=== PATIENT | female | born 1975 | race Caucasian/White ===

== ENCOUNTER 2017-03-25 09:00 | Outpatient (RCR) | payer OTHER, SELFPAY ==
--- NOTE | 2017-03-11 10:06 | HP.PTEVAL_ITS ---
Patient's Visit Information JOSE ALBERTO CHEN is a 41 year old F referred to Physical Therapy by Aris Salas DO with a diagnosis of Right Hip Resection with labral reattatchment 02/17. Date of Evaluation: 03/11/17 Physical Therapist: Kellie Camejo - Visit Plan Frequency: 1x/Week Duration: 3 Months Plan: Follow protocol - Subjective Subjective: Feb 17, 2017 repaired the labrum of the right hip by Dr. Salas. Was doing crossfit and thinks it was torn from overlifting- gradual onset. Does have deformed' hip sockets. Outpatient surgery with 1 story home with finished basement- does go up/down the stairs. No problems getting around at home- has help as needed. 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 Does have mild ache in the hip but no need for pain medication. She is taking them 1x a day. Worst: 1/10 Agg: sitting to long or walking to long. Best: 0/10 but always feels stiff Describes pain as dull and achy- pain is in the hip- does pull on the lateral aspect of the quad to the knee. No back pain- Does have N/T in the top of the foot and was warned about it before surgery. Patient feels that she is 80% back- wants to get back to working out. Wants to be able to lift again- does not plan to go back to Crossfit- does have a gym membership. Does want to be able to run again. PMHx: acid reflux, exercise induced asthma. Meds: prilosec, rescue inhaler as needed. No x-rays since leaving the hospital. Saw Dr. Salas who was happy with progress- wanted her to start PT and see her in 4 weeks. Sleep: not disturbed. - Objective Posture: good throughout. Gait: no deviation noted. Stairs: able to asc/desc recip with no HR good control. SLS: 30 sec without LOB. HR/TR: able without incidence. ROM: WFL in all planes- mild discomfort at end range abduction. Strength: Ankle/Knee: 5/5, Hip: 4/5 throughout Core: fair - Goals Goal 1:: Patient will be I with HEP and progression Goal Time Frame: 4-6 Weeks Goal 2:: Patient will demo 5/5 strength in LE where deficit Goal Time Frame: 4-6 Weeks Goal 3:: Patient will return to all normal ADL's and recreational activities Goal Time Frame: 4-6 Weeks - Rehabilitation Potential Physical Therapy Diagnosis: Patient presents with hypomobility- she has decreased strength and muscular endurance s/p hip surgery Rehabilitation Potential: Excellent - Anticipated Interventions Patient/Client Instruction: Educate patient on: Benefits of Fitness Program For the Purpose of:: To increase tolerance to activity/condition/position Therapeutic Exercise to Include: Strength training, Endurance training, Balance training, Body mechanics, Postural training, Flexibilty training, Dynamic Lumbar Stabilization For the Purpose of:: To improve muscle performance and motor function Thank you for the opportunity to evaluate your patient. For Medicare and Medicare HMO plans, please review the plan of care and approve it. It will need to be FAXED BACK to us at [phone] for Medicare purposes. Please let me know if there are questions or concerns regarding this plan of care. Physician Signature: Date:
--- NOTE | 2017-06-15 14:30 | HP.PTDCNRP_ITS ---
HP - Discharge Summary (1) - Patient Information JOSE ALBERTO CHEN was seen in my office for initial evaluation on 03/11/17. The following Plan of Care was established for this patient: Initial Frequency: 1x/Week Initial Duration: 3 Months - Anticipated Interventions Patient/Client Instruction: Educate patient on: Benefits of Fitness Program For the Purpose of:: To increase tolerance to activity/condition/position Therapeutic Exercise to Include: Strength training, Endurance training, Balance training, Body mechanics, Postural training, Flexibilty training, Dynamic Lumbar Stabilization For the Purpose of:: To improve muscle performance and motor function This patient was last seen in our office . Pertinent comments regarding their Physical therapy will appear below: Patient has not attended physical therapy in over 4 weeks- appropriate to be d/ c at this time. At this point I will be discontinuing this patient from physical therapy. I would be happy to see this patient again in the future if found appropriate by the physician. Thank you! Kellie Camejo
== END 2017-03-25 19:00 | disposition home or self-care (01) ==
LOC: PT 09:00
PROVIDERS: Family Provider Preventive Medicine Occupational Medicine; PCP Preventive Medicine Occupational Medicine; Visit Provider Orthopaedic Surgery
DX: Z98.890 Other specified postprocedural states (principal)
CPT/HCPCS: 97110; 97161

== ENCOUNTER 2019-03-15 11:40 | Emergency (ER) | payer OTHER, SELFPAY ==
[2018-11-19 17:35] VITALS: BMI 38.0
[2019-03-15 11:40] VITALS: BP 163/104; PULSE 76; RESP 18; TEMP 36.6; O2SAT 99; BMI 42.5
--- NOTE | 2019-03-15 12:26 | ED.DCSUM_ITS ---
- ER Visit Summary Date of Service: 03/15/19 Chief Complaint: Headache History of Present Illness: The patient is a 43 F presenting with headache. Patient states this started 5 days ago. Headache was gradual in onset. Similar to her previous migraines. She has associated nausea and vomiting. She has tr ied her migraine medications at home. She states this intermittently helps and then the headache will return. She denies fever or neck pain. Denies other complaints. Physical Examination: Vitals are stable. Patient is afebrile. Alert no acute distress. HEENT exam is unremarkable. Neck is supple. No meningismus Lungs are clear and equal bilaterally. Heart is regular rate and rhythm. Abdomen is soft nontender nondistended. Extremities are unremarkable. Skin is warm and dry. No focal neurologic deficit. Remainder of exam is unremarkable. Emergency Department Course and Treatment: Patient was given Reglan, Benadryl IV. On reevaluation, patient is feeling improved. She is given prescription for Zofran. Advised to follow-up with her primary care physician. Advised return the ED for worsening complaints. Disposition: Discharge home Impression: Migraine headache This note was generated with Airware dictation software. It may contain incorrect words, spelling, and punctuation that were not noted in review of the chart prior to signing ED Disposition - Plan for ED Patient: Instructions: HEADACHE, Unspecified Prescriptions: Ondansetron [Zofran Odt] 4 mg PO Q8H PRN PRN #10 tab PRN Reason: Nausea Prescription Printed Referrals: Mike Payton DO [Primary Care Provider] -
[2019-03-15] MEDS: DiphenhydrAMINE 50 MG/ML Syringe 25 MG IV (13:25)
[2019-03-15] MEDS: Metoclopramide 10 MG/2 ML Vial IV (13:25)
--- NOTE | 2019-03-15 13:58 | ED.DEP ---
ED Disposition - Plan for ED Patient: Instructions: HEADACHE, Unspecified Prescriptions: Ondansetron [Zofran Odt] 4 mg PO Q8H PRN PRN #10 tablet PRN Reason: Nausea Referrals: Mike Payton DO [Primary Care Provider] -
[2019-03-15 14:25] VITALS: PULSE 70; RESP 16; O2SAT 98
== END 2019-03-15 14:26 | disposition home or self-care (01) ==
LOC: ED 12:35
PROVIDERS: Emergency Provider Emergency Medicine; Family Provider Preventive Medicine Occupational Medicine; PCP Preventive Medicine Occupational Medicine
DX: G43.909 Migraine, unspecified, not intractable, without status migrainosus (principal); Z79.899 Other long term (current) drug therapy
CPT/HCPCS: 96374; 96375; 99285; A4216

== ENCOUNTER 2020-09-06 09:26 | Outpatient (RCR) | payer BC, SELFPAY ==
[2020-08-10 13:11] VITALS: BMI 42.5
--- NOTE | 2020-09-06 11:26 | HP.PTEVAL ---
Patient's Visit Information JOSE ALBERTO CHEN is a 44 year old F referred to Physical Therapy by PIPPA Spencer with a diagnosis of LOW BACK PAIN, LUMBAR RADICULITIS AND RIGHT HIP PAIN.. Date of Evaluation: 09/06/20 Physical Therapist: Felipa Noyola, PT, Cert MDT - Visit Plan Frequency: 2-3x /Week Duration: 4-6 Weeks Plan: SETH TESTING AND HIP FLEXION ROM TESTING. CONSIDER AQUATIC THERAPY. POSTURE CORRECTION/STRENGTHENING, INSTRUCTION IN APPROPRIATE BODY MECHANICS AND ACTIVITY MODIFICATIONS. DLS STARTING WITH A NEUTRAL SPINE PROGRESSING ROM TOLERATED. NOE LE ROM, STRETCHING AND STRENGTHENING. HEP INSTRUCTION. 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 Disability: NO. Present symptoms: RIGHT LEG PAIN (LATERAL), LOW BACK PAIN AND RIGHT HIP PAIN. RIGHT THIGH NUMBNESS AND TINGLING. PAIN WRAPS AROUND THE FRONT OF THE HIP TOO BUT NOT REALLY TO THE GROIN. Present since: ABOUT 2 YEARS AGO. Pain Scale: WORST 7/10, LEAST 2/10. Currently: 2/10. Commenced as a result of: NO APPARENT REASON. Symptoms at onset: RIGHT HIP PAIN. Worse: STANDING, WALKING, LIFTING, BENDING, TWISTING, STEPS. Better: SITTING, LYING DOWN SOMTIMES EVENTUALLY. Disturbed sleep: YES. Previous history/Previous treatment: PATIENT REPORT SHE TORE HER RIGHT HIP LABRUM ABOUT 4 YEARS AGO AND HAD IT REPAIRED (DR. TRAN) BUT NEVER FELT FULLY RECOVERED. STILL HAD PINCHING IN HIP AND KEPT GETTING WORSE. NUMBNESS STARTED AT TOP OF THIGH AND NOW IT IS DOWN TO THE TOP OF KNEE. NO CHIROPRACTOR. NO PHYSICAL THERAPY. NO BACK SURGERY. NO BACK INJECTIONS. PCP CONSULT WITH DR. JESUS ALBERTO LIN A FEW TIMES AND HAS BEEN ON GABAPENTIN FOR ABOUT A YEAR. ONE CONSULT WITH CAROLINE DAS AND ORDERED X-RAYS OF HIP AND BACK. STATES PA CONSULTED WITH DR. YUAN FOR BACK MRI AND PT ORDERED. CURRENTLY ON GABAPENTIN AND NEBUTONE (TRIED MALOXACAM AND DID NOT HELP). PA ALSO PRESCRIBED MEDROL DOSE GIRISH PER PATIENT REPORT AND IT DID NOT HELP. Coughing/sneezing/straining: POSITIVE. Gait: I BEATRIZ HAVE A LIMP. IT SLOWS ME DOWN. TIME AND DISTANCE LIMITED. Difficulty initiating urinatin: NO. Accidents: NO. Unexplained weight loss: NO. Imaging: RECENT RIGHT HIP X-RAY - PATIENT REPORTS IT WAS NORMAL. RECENT LUMBAR X-RAY - FINDINGS: There is an exaggerated lumbar lordosis. There is a mild levoscoliosis of. the lumbar spine. There is a normal alignment of the vertebrae. There is multilevel endplate spondylosis of the lumbar vertebrae. There is. multi-level degenerative disc disease with multi-level disc space. narrowing. Calcified phleboliths are seen in the pelvis. . RAD/Lumbar Spine 2 or 3 Views. IMPRESSION: Degenerative changes of the spine, as detailed above. Mild levoscoliosis of the lumbar spine. . Electronically Signed: Kong Darnell MD. at 14:55 EDT. PMH: HTN. Recent major surgery: 2019 R ANKLE SURGERY FOR TORN LIGAMENTS. - Objective Sitting/Standing Posture: RIGHT ILIAC CREST HIGHER THAN LEFT. INCREASED LORDOSIS. SCOLIOSIS ON X-RAY. Other Observations: INDEP GAIT INTO PT WITHOUT AD OR LOB BUT LIMPING ON RIGHT LE. Motor deficit: LEFT LE 5/5. RIGHT LE: HIP 4-/5, KNEE 5/5, ANKLE 5/5. Sensory deficit: NOE LE LIGHT TOUCH SENSATION INTACT AND SYMMETRICAL. ROM deficit: TIGHT NOE HIP FLEXORS BUT HIP ROTATORS ARE ACTUALLY SYMMETRICAL. TEST HIP FLEXION ROM NEXT. Reflexes: 2/3 NOE LE'S. Dural Signs: POSITIVE RIGHT LE. Lumbar mvmt loss: flex - NIL. ext - MIN. R SG - MOD. L SG - MIN. PATIENT C/O LOW BACK PAIN WITH LUMBAR ROM TESTING ALL PLANES. Core strength: POOR. OTHER: SETH TESTING NEXT. TREATMENT: NEUROMUSCULAR REEDUCATION - RETRAINING OF MVMT AND POSTURE FOR SITTING, LYING AND STANDING ACTIVITIES. - Goals Goal 1:: DECREASE C/O BACK AND RIGHT LE SX'S. Goal Time Frame: 4-6 Weeks Goal 2:: IMPROVE PERSONAL CARE, LIFTING, WALKING, SITTING, STANDING, SLEEP, SOCIAL LIFE, TRAVEL, WORK AND HOMEMAKING FUNCTION. Goal Time Frame: 4-6 Weeks Goal 3:: INSTRUCT IN PROPHYLAXIS Goal Time Frame: 4-6 Weeks - Anticipated Interventions Patient/Client Instruction: Educate patient on: Condition, Plan of Care, Risk Factors For the Purpose of:: To improve self management Therapeutic Exercise to Include: Strength training, Body mechanics, Postural training, Flexibilty training, Gait and locomotor training, Neuromotor development, In an aquatic setting, Dynamic Lumbar Stabilization For the Purpose of:: To decrease pain, To increase ROM, To improve muscle performance and motor function, To increase tolerance to activity/condition/position, To improve ability of physical actions for home/community/work/leisure, To improve gait and locomotor functions TENS: Yes IF ES: Yes Cryotherapy (ice pack, ice massage): Yes Thermo therapy (hot pack): Yes Ultrasound (thermal/non thermal): Yes For the Purpose of:: To decrease pain, To decrease swelling/inflammation, To improve nutrient delivery to tissue Thank you for the opportunity to evaluate your patient. For Medicare and Medicare HMO plans, please review the plan of care and approve it. It will need to be FAXED BACK to us at [phone] for Medicare purposes. For Medicare only, by signing this I certify the plan of care. Please let me know if there are questions or concerns regarding this plan of care. Physician Signature: Date:
--- NOTE | 2021-01-15 13:25 | HP.PT.NRP ---
JOSE ALBERTO CHEN was seen in my office for initial evaluation on 09/06/20. The following Plan of Care was established for this patient: Initial Frequency: 2-3x /Week Initial Duration: 4-6 Weeks Patient/Client Instruction: Educate patient on: Condition, Plan of Care, Risk Factors For the Purpose of:: To improve self management Therapeutic Exercise to Include: Strength training, Body mechanics, Postural training, Flexibilty training, Gait and locomotor training, Neuromotor development, In an aquatic setting, Dynamic Lumbar Stabilization For the Purpose of:: To decrease pain, To increase ROM, To improve muscle performance and motor function, To increase tolerance to activity/condition/position, To improve ability of physical actions for home/community/work/leisure, To improve gait and locomotor functions TENS: Yes IF ES: Yes Cryotherapy (ice pack, ice massage): Yes Thermo therapy (hot pack): Yes Ultrasound (thermal/non thermal): Yes For the Purpose of:: To decrease pain, To decrease swelling/inflammation, To improve nutrient delivery to tissue This patient was last seen in our office 09/06/20. Pertinent comments regarding their Physical therapy will appear below: This patient has not returned to Physical Therapy and is appropriate to return to MD for further follow-up as needed. At this point I will be discontinuing this patient from physical therapy. I would be happy to see this patient again in the future if found appropriate by the physician. Thank you! Felipa Noyola, PT, Cert MDT Balance/Gait/Functional tests - Balance/Special Test Scores Oswestry Low Back Score: 18
== END 2020-09-06 19:00 | disposition home or self-care (01) ==
LOC: PT 09:26
PROVIDERS: PCP Preventive Medicine Occupational Medicine
DX: M54.16 Radiculopathy, lumbar region (principal); M25.551 Pain in right hip
CPT/HCPCS: 97162

== ENCOUNTER → 2020-09-21 | Outpatient (CLI) | payer BC, SELFPAY ==
[2020-09-21 08:08] VITALS: BMI 41.5
[2020-09-21 10:25] LABS: Mucous, Urine 0 SEEN /hpf (<or=2+)
[2020-09-21 10:46] LABS: Color, Urine Yellow (Yellow); Glucose, Dipstick Normal (Normal); Ketone-Dipstick Negative (Negative); Leukocyte Esterase-Dipstick 25 /ul (Negative); Nitrite-Dipstick Negative (Negative); Occult Blood-Urine 10 /ul (Negative); Protein-Dipstick Negative (Negative); Urine Bilirubin Dipstick Negative (Negative); Urine Clarity Sl. Cloudy (Clear); Urine Urobilinogen Normal (Normal)
[2020-09-21 10:53] LABS: Bacteria 2+ /hpf (None Seen); Red Blood Cells-Urine 0-5 SEEN /hpf (0-5); Squamous Epithelial Cells - UA 0-5 SEEN /hpf (5-10); White Blood Cells 0-5 SEEN /hpf (0-5)
== END | disposition home or self-care (01) ==
LOC: LABSPEC 10:17
PROVIDERS: PCP Preventive Medicine Occupational Medicine; Visit Provider Physician Assistant Surgical
DX: N39.0 Urinary tract infection, site not specified (principal)
CPT/HCPCS: 81001; 87086; 87088; 87186

== ENCOUNTER → 2021-01-25 18:35 | Outpatient (CLI) | payer BC, SELFPAY ==
--- NOTE | 2021-01-25 18:30 | US_ITS ---
EXAM: US Pelvis Transvaginal CLINICAL INDICATION: 45 years old, Female; PELVIC PAIN TECHNIQUE: Transvaginal pelvic ultrasound was performed with grayscale and color Doppler imaging. Transvaginal imaging was used for better evaluation of the endometrium and adnexa. This report was created using [employer] report mBlox technology. COMPARISON: None. FINDINGS: Uterus/cervix: Nabothian cysts in the cervix. Anteverted. There is no uterine mass. The uterus measures 8.0 x 5.3 x 4.0 cm. The endometrial stripe measures 0.4 cm in thickness. Right ovary: Unremarkable. Blood flow is present in the right ovary. The right ovary measures 2.3 x 1.3 x 1.4 cm. Left ovary: Unremarkable. Blood flow is present in the left ovary. The left ovary measures 2.1 x 1.8 x 1.4 cm. Free fluid: None. Bladder: Empty bladder which cannot be evaluated with this probe. US/Transvaginal Non- IMPRESSION: Blood flow is identified in both ovaries however evaluation is somewhat limited due to the position of the ovaries. No enlargement of either ovary to suggest torsion. Electronically Signed: Juan J Todd MD at 23:00 EST Tel , Service support ,
== END ==
LOC: US 18:36
PROVIDERS: PCP Preventive Medicine Occupational Medicine; Visit Provider Obstetrics & Gynecology
DX: R10.2 Pelvic and perineal pain (principal)
CPT/HCPCS: 76830

== ENCOUNTER → 2022-10-17 | Outpatient (CLI) | payer OTHER, SELFPAY ==
[2022-10-17 12:13] LABS: Absolute Lymphocyte Count 2.16 X10^3/uL (0.83-4.51); Absolute Neutrophil Count 3.5 X10^3/uL (2.0-7.7); Basophil# 0.07 X10^3/uL; Basophil% 1.1 % (0-1); Eosinophil# 0.22 X10^3/uL; Eosinophils% 3.4 % (0-5); Hemoglobin 11.9 g/dL (12.0-15.0); Lymphocyte # 2.16 X10^3/ul (0.83-4.51); Lymphocyte % 33.6 % (19-41); Mean Corp Hgb Conc 32.2 g/dL (32-36); Mean Corpuscular Hgb 28.4 pg (27.0-32.0); Mean Corpuscular Volume 88.3 fL (81-99); Mean Platelet Vol. 11.2 fl (6.2-12.0); Monocyte# 0.49 X10^3/uL; Monocyte% 7.6 % (0-10); NRBC Flagged by Analyzer 0 % (0-5); Neutrophil # 3.47 X10^3/uL (2.7-7.7); Platelet Count 248 K/mm3 (150-450); RBC Distribution Width CV 15.1 % (11.6-14.6); RBC Distribution Width SD 48.9 fl (35.1-43.9); Red Blood Count 4.19 M/mm3 (4.2-5.4); White Blood Count 6.4 K/mm3 (4.4-11.0)
[2022-10-17 12:44] LABS: Hemoglobin A1c 5.3 % (3.8-5.6)
[2022-10-17 12:45] LABS: Insulin 4.3 mU/L (2.6-37.6); Vitamin B12 550 pg/mL (211-911); Vitamin D,25 Hydroxy 35.3 ng/mL
[2022-10-17 12:58] LABS: ALB/GLOB Ratio 0.9 RATIO (0.9-2.4); AST(SGOT) 11 U/L (15-37); Alanine Aminotransfer ALT/SGPT 17 U/L (13-56); Albumin, Serum 3.4 g/dL (3.2-5.0); Alkaline Phosphatase 50 U/L (45-117); Anion Gap 5 (5-15); BUN 12 mg/dL (7-18); BUN/Creat Ratio 14.6 RATIO (10-20); Calcium,Total 9.1 mg/dL (8.5-10.1); Chloride 108 mmol/L (98-107); Cholesterol 210 mg/dL (200); Creatinine, Serum 0.82 mg/dL (0.55-1.02); EST Glomerular Filtration Rate 80 mL/min (>60); Est Glom Filt Rate - Afr Amer 97 mL/min (>60); Globulin 3.8 g/dL (2.2-4.2); Glucose 84 mg/dL (74-106); High Density Lipoprotein 58 mg/dL; Potassium 4.2 mmol/L (3.5-5.1); Protein, Total 7.2 g/dL (6.4-8.2); Sodium Level 137 mmol/L (136-145); Thyroid Stim Hormone (TSH) 1.12 uIU/mL (0.358-3.74); Triglycerides 53 mg/dL; Very Low Density Lipoprotein 11 mg/dL (5-40)
== END | disposition home or self-care (01) ==
PROVIDERS: PCP Preventive Medicine Occupational Medicine
DX: E11.8 Type 2 diabetes mellitus with unspecified complications (principal); E66.3 Overweight
CPT/HCPCS: 36415; 80053; 80061; 82306; 82607; 82746; 83036; 83525; 84443; 85025

== ENCOUNTER → 2023-08-26 | Outpatient (CLI) | payer OTHER, SELFPAY ==
[2023-08-26 11:26] LABS: Mucous, Urine 0 SEEN /hpf (<or=2+)
[2023-08-26 11:31] LABS: Glucose, Dipstick Normal (Normal); Ketone-Dipstick Negative (Negative); Leukocyte Esterase-Dipstick 100 /ul (Negative); Nitrite-Dipstick Positive (Negative); Occult Blood-Urine 50 /ul (Negative); Protein-Dipstick 30 mg/dl (Negative); Specific Gravity, Urine 1.015 (1.002-1.030); Urine Clarity Cloudy (Clear); Urine Urobilinogen 12 mg/dl (Normal); Urine pH 6.5 (5.0 - 8.0)
[2023-08-26 11:33] LABS: Color, Urine SEE COMMENT BELOW (Yellow); Urine Bilirubin Dipstick 6 mg/dL (Negative)
[2023-08-26 11:41] LABS: Bacteria 3+ /hpf (None Seen); Transitional Epithelial - Ur 0-5 SEEN /hpf (0-5)
[2023-08-26 11:42] LABS: White Blood Cells >100 SEEN /hpf (0-5)
[2023-08-26 11:43] LABS: Red Blood Cells-Urine 5-10 SEEN /hpf (0-5)
[2023-08-26 11:44] LABS: Renal Epithelial Cells 0-5 SEEN /hpf (0-5)
[2023-08-26 11:45] LABS: Squamous Epithelial Cells - UA 10-25 SEEN /hpf (5-10)
== END | disposition home or self-care (01) ==
LOC: LABSPEC 11:13
PROVIDERS: PCP Preventive Medicine Occupational Medicine; Referring Provider Physician Assistant; Visit Provider Physician Assistant
DX: R30.0 Dysuria (principal); M54.50 Low back pain, unspecified; N39.0 Urinary tract infection, site not specified
CPT/HCPCS: 81001; 87086; 87088; 87186

== ENCOUNTER → 2024-12-21 | Outpatient (CLI) | payer OTHER, SELFPAY ==
[2024-12-27 14:09] LABS: HPV APTIMA, High Risk Negative (Negative)
== END | disposition home or self-care (01) ==
LOC: LABSPEC 15:50
PROVIDERS: PCP Nurse Practitioner Family; Referring Provider Nurse Practitioner Family; Visit Provider Nurse Practitioner Family
DX: Z12.4 Encounter for screening for malignant neoplasm of cervix (principal)
CPT/HCPCS: 87624; 88175; G0145

== ENCOUNTER → 2024-12-30 | Outpatient (CLI) | payer OTHER, SELFPAY | END | disposition home or self-care (01) | LOC: US 08:46 | PROVIDERS: PCP Nurse Practitioner Family; Referring Provider Nurse Practitioner Family; Visit Provider Nurse Practitioner Family | DX: N93.9 Abnormal uterine and vaginal bleeding, unspecified (principal) | CPT/HCPCS: 76830; 76856 ==

== ENCOUNTER → 2025-01-06 | Outpatient (CLI) | payer OTHER, SELFPAY ==
--- NOTE | 2025-01-06 12:00 | BI_ITS ---
EXAM: BI/SCRN MAMM (CAD)W/BEE BILAT
== END | disposition home or self-care (01) ==
LOC: OPBI 11:58
PROVIDERS: PCP Nurse Practitioner Family; Referring Provider Nurse Practitioner Family; Visit Provider Nurse Practitioner Family
DX: Z12.31 Encounter for screening mammogram for malignant neoplasm of breast (principal)
CPT/HCPCS: 77063; 77067

== ENCOUNTER → 2025-01-12 | Outpatient (CLI) | payer OTHER, SELFPAY ==
--- NOTE | 2025-01-12 09:20 | EMB_PTH ---
PATIENT: JOSE ALBERTO HCEN LOC: [facility] U#:[id number] AGE/SX: 49/F ROOM: RE01/12/[address]: Dr. Jose Alberto Lynch DO : 1975 BED: DIS: 01/12/2025 SPEC #: [id number] RECD: 01/12/25 12:13 STATUS: NUVIA JOHANN #: [id number] DWIGHT: 01/12/25 09:[address]: Jose Alberto Lynch DEPT: SURGICAL PATHOLOGY RECD BY: Rob Enrique ENTERED: 01/12/25 13:52 SP TYPE: ENDOM BX/C OT DR: MARK MORALES, SAM-Graciela Tissues: A - Endometrium, NOS Procedures: Surgery Specimen Level IV HEADER OPERATION: Endometrial biopsy PRE-OP DIAGNOSIS: Abnormal uterine bleeding TISSUE SUBMITTED: A- Endometrial tissue MICROSCOPIC DIAGNOSIS Endometrium, biopsy: MICROSCOPIC DESCRIPTION Slides are reviewed. GROSS DESCRIPTION A. Received in formalin labeled the patient's name and date of is a 1.5 x 0.6 x 0.1 cm aggregate of mucoid material and a upton-red flecks of apparent tissue. Entirely submitted in 1 cassette. Entirety of the specimen may not survive processing. [place] 5CPT:[id number]
[2025-01-12 13:30] LABS: Follicle Stimulating Hormone 4.8 mIU/mL
== END | disposition home or self-care (01) ==
LOC: BWCLAB 09:53
PROVIDERS: PCP Nurse Practitioner Family; Visit Provider Obstetrics & Gynecology
DX: N93.9 Abnormal uterine and vaginal bleeding, unspecified (principal)
CPT/HCPCS: 36415; 82670; 83001; 83002; 84443; 87070; 87205; 88305

== ENCOUNTER → 2025-02-17 | Outpatient (CLI) | payer OTHER, SELFPAY | END | disposition home or self-care (01) | LOC: BWCLAB 13:51 | PROVIDERS: PCP Nurse Practitioner Family; Visit Provider Obstetrics & Gynecology | DX: Z00.00 Encounter for general adult medical examination without abnormal findings (principal) ==

== ENCOUNTER 2025-02-21 08:47 | Day surgery (SDC) | payer OTHER, SELFPAY ==
--- NOTE | 2025-02-13 14:39 | PAT.ANESEVAL ---
Pre-Assessment Diagnosis/Proposed Procedure Planned Operative Procedure(s): (B) Lap Robotic Hysterectomy Wong Salping, Cystoscopy Anesthesia History Anesthesia History - public health nutritionist: Anesthesia History - public health nutritionist Hx Hospitalization No 02/13/25 13:09 Any Problems With Anesthesia Yes: TEMPORARY Achalasia, & 02/13/25 13:09 DIFFICULTY WAKING Cholinesterase deficiency No 02/13/25 13:09 You/Your Family Experience No 02/13/25 13:09 fever (hyperthermia) with Relationship Recent Exposure to Contagious No 02/17/17 06:10 Disease Does patient have nerve No 02/13/25 13:09 stimulator Patient instructed to have device shut off --Does patient have Pacemaker or ICD? When Was Last Pacemaker Check QUESTION #4 FULL TEXT: You/Your Family Experience fever (hyperthermia) with Anesthesia Last Oral Intake Last Oral intake: Last Oral Intake NPO since Meds taken in AM with sips of water? Meds patient instructed to take am of surgery PONV PONV - public health nutritionist: PONV - public health nutritionist Female Yes 02/13/25 13:09 HX of Motion Sickness Yes 02/13/25 13:09 HX of N/V After Surgery Yes 02/13/25 13:09 Non-Smoker Yes 02/13/25 13:09 Duration of Surgery greater Yes 02/13/25 13:09 than 60 minutes Number of Risk Factors 5 02/13/25 13:09 PONV Score Severe Risk 02/13/25 13:09 Height & Weight Height & Weight: Anesthesia: Height & Weight Height 5 ft 2 in 01/12/25 08:57 Respiratory Assessment Respiratory Assessment - public health nutritionist: Respiratory Tract Infection Hx - public health nutritionist Hx Respiratory Tract Infection No 02/13/25 13:09 STOP Sleep Apnea STOP Sleep Apnea - public health nutritionist: STOP Sleep Apnea - public health nutritionist Hx Hypertension Yes: PER PT, CONTROLLED ON 02/13/25 13:09 MEDS Hx Sleep Apnea No 02/13/25 13:09 CPAP BIPAP Do you snore loudly (louder No 02/13/25 13:09 than talking or can be heard Do you often feel tired/ No 02/13/25 13:09 fatigued/ sleepy during daytime? Has anyone observed you stop No 02/13/25 13:09 breathing during sleep? STOP Results Negative 02/13/25 13:09 QUESTION #5 FULL TEXT : Do you snore loudly (louder than talking or can be heard through closed doors)? Tobacco Use History Tobacco Use History - public health nutritionist: Tobacco Use History - public health nutritionist Tobacco Use Smoking Status Never smoker 02/13/25 13:09 Hx Tobacco Use No 02/13/25 13:09 Years Smoking Packs Smoked per Day Smoking Cessation Date was within the last 15 years Hx Smoking Cessation Date Hx Smoking Cessation Counseling Hematologic Medial History Hematologic Hx - public health nutritionist: Hematologic Medical Hx - senior case manager Hx of Blood Transfusion No 02/13/25 13:09 Hx of Transfusion in last 3 No 02/13/25 13:09 Months Date of Last Transfusion (if within last 3 months) Ever experience any problems No 02/13/25 13:09 with transfusion(s)? Specify any problems Hx of Preganancy in last 3 No 02/13/25 13:09 Months Nurse Filling Out Transfusion AIDA 02/13/25 13:09 & Questions: Date: 02/13/25 02/13/25 13:09 Time: 13:13 02/13/25 13:09 Patient unable to answer at this time (ie. confused, unrespo /Reproduction History /Reproductive History - public health nutritionist: /Reproductive Hx- public health nutritionist Hx Now No 02/13/25 13:09 Gestational Age (in weeks): EDC: Hx Hx Para Hx Section SAB No 02/13/25 13:09 Does the father of the baby or his family experience fever w Father of the baby Malignant Hypertension history comment [facility] Medical History (Updated 02/13/25 @ 13:50 by Natasha Muniz) Wears glasses Anxiety Bladder disease High cholesterol History of IBS Gastric reflux Non-smoker Asthma Shortness of breath on exertion PONV (postoperative nausea and vomiting) History of edema History of stress test History of irregular heartbeat Chest pain Neck pain Back pain Abnormal bruising Migraine Stomach ulcer Hemorrhoids HTN (hypertension) Home Medications ?Medication ?Instructions ?Recorded ?Last Taken ?Type lisinopril 10 mg tablet 10 mg PO DAILY HTN #30 tabs 11/19/18 03/14/19 History alprazolam 0.5 mg tablet (Xanax) 0.5 mg PO QHS PRN anxiety 12/21/24 Unknown History tirzepatide 10 mg/0.5 mL 10 mg subcut CAMEJO 12/21/24 02/12/25 History subcutaneous pen injector (Esther) vonoprazan 20 mg tablet 20 mg PO QDAY GERD 12/21/24 Unknown History atorvastatin 20 mg tablet (Lipitor) 20 mg PO QDAY hld 12/23/24 Unknown History linaclotide 290 mcg capsule 290 mcg PO DAILY IBS 02/13/25 Unknown History (Linzess) Allergy/AdvReac Type Severity Reaction Status Date / Time hydromorphone (From Dilaudid) Allergy Severe Shortness Verified 02/13/25 13:04 of breath Family History Mother Diabetes Hypertension Father Seizures Brain tumor Grandfather Myocardial infarction Grandmother Myocardial infarction Surgical History (Updated 02/13/25 @ 13:09 by Natasha Muniz) History of surgery History of endometrial ablation H/O tubal ligation right hip arthroscopy H/O foot surgery S/P Social History adopted: No number of children: 2 current occupational status: employed current occupation: [employer] sexually active: Yes Smoking Status: Never smoker alcohol intake: never substance use type: does not use what type of physical activity do you participate in: walking seatbelt use: always do you feel safe at home: Yes 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 Normal sinus rhythm Stress test pertinent findings: 11/11/2024. [facility]. Negative. Patient did have 3 out of 10 chest pain at rest which was atypical and did not change during exercise or during recovery. 10.1 METS Recommendation Anesthesia Recommendation Anesthesia recommendation: OPTIMIZED for anesthesia
[2025-02-17 14:10] LABS: Hematocrit 37.0 % (37-47); Hemoglobin 11.9 g/dL (12.0-15.0); Mean Corp Hgb Conc 32.2 g/dL (32-36); Mean Corpuscular Volume 86.4 fL (81-99); Mean Platelet Vol. 9.9 fl (6.2-12.0); Platelet Count 226 K/mm3 (150-450); RBC Distribution Width CV 13.4 % (11.6-14.6); RBC Distribution Width SD 41.9 fl (35.1-43.9); Red Blood Count 4.28 M/mm3 (4.2-5.4); White Blood Count 6.4 K/mm3 (4.4-11.0)
[2025-02-17 14:15] LABS: Partial Thromboplast Time 28.4 Seconds (24.1-36.2); Prothrombin Time (Protime)PT. 13.1 SECONDS (11.7-14.9)
[2025-02-17 14:58] LABS: AST(SGOT) 19 U/L (<=31); Alanine Aminotransfer ALT/SGPT 12 U/L (<=34); Albumin, Serum 4.0 g/dL (3.5-5.0); Alkaline Phosphatase 51 U/L (35-104); Bilirubin, Direct 0.17 mg/dL (0.00-0.30); Globulin 2.7 g/dL (2.2-4.2); Magnesium 2.0 mg/dL (1.5-2.2)
[2025-02-21] VITALS (11 sets, daily range): BP systolic 90–126; BP diastolic 56–108; PULSE 58–84; RESP 16–18; TEMP 36.4–37.1; O2SAT 100; BMI 35.4
--- NOTE | 2025-02-21 08:55 | PRE.ANES_ITS ---
ASA Classification* ASA Classification ASA Classification: 2 Assessment & Plan Anesthesia* Anesthesia Assessment Anesthesia Assessment: Discussed sedation and/or anesthesia options, risks, benefits, and alternatives with patient/parents/legal guardian/POA. Questions invited. The patient/parents/legal guardian/POA seems to understand and agrees to proceed with anesthesia plan. Reviewed the physical assessment, medical history, allergy history and patient home medications list prior to surgery/procedure/anesthetic and documented any changes. Performed airway and anesthesia risk assessments. Anesthesia Type Anesthesia Type: General Anesthesia Focused Assessment* Airway Assessment Mouth opens: >3 cm Mallampati Score: II Labs Anesthesia Preop lab: CBC WBC, (4.4-11.0) 6.4 K/mm3 02/17/25, 13:55 RBC, (4.2-5.4) 4.28 M/mm3 02/17/25, 13:55 Hgb, (12.0-15.0) 11.9 g/dL L 02/17/25, 13:55 Hct, (37-47) 37.0 % 02/17/25, 13:55 Plt Count, (150-450) 226 K/mm3 02/17/25, 13:55 CHEMISTRY Potassium, (3.5-5.1) 4.2 mmol/L 10/17/22, 09:40 Sodium, (136-145) 137 mmol/L 10/17/22, 09:40 Magnesium, (1.5-2.2) 2.0 mg/dL 02/17/25, 13:55 BUN, (7-18) 12 mg/dL 10/17/22, 09:40 Creatinine, (0.55-1.02) 0.82 mg/dL 10/17/22, 09:40 Glucose, (74-106) 84 mg/dL 10/17/22, 09:40 TSH, (0.300-4.200) 1.720 uIU/mL 01/12/25, 09:53 COAG PT, (11.7-14.9) 13.1 SECONDS 02/17/25, 13:55 Tst Clinic Negative 09/21/20, 08:36 Pre-Assessment Diagnosis/Proposed Procedure Planned Operative Procedure(s): (B) Lap Robotic Hysterectomy Wong Salping, Cystoscopy Anesthesia History 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 When Was Last Pacemaker Check QUESTION #4 FULL TEXT: You/Your Family Experience fever (hyperthermia) with Anesthesia Last Oral Intake Last Oral intake: Last Oral Intake NPO since Meds taken in AM with sips of water? 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 Has anyone observed you stop No 02/13/25 13:09 breathing during sleep? STOP Results Negative 02/13/25 13:09 QUESTION #5 FULL TEXT : Do you snore loudly (louder than talking or can be heard through closed doors)? 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 Specify any problems Hx of Preganancy in last 3 No 02/13/25 13:09 Months Nurse Filling Out Transfusion MGRIFFITH 02/13/25 13:09 & Questions: Date: 02/13/25 02/13/25 13:09 Time: 13:13 02/13/25 13:09 Patient unable to answer at this time (ie. 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: /Reproductive Hx- butane compressor operator Hx Now No 02/13/25 13:09 Gestational Age (in weeks): EDC: Hx Hx Para Hx Section SAB No 02/13/25 13:09 Does the father of the baby or his family experience fever w Father of the baby Malignant Hypertension history comment Active Medications Active Medications: Current Medications Generic Name Dose Route Start Last Admin Trade Name Freq PRN Reason Stop Dose Admin Acetaminophen 1,000 mg 02/21/25 10:45 Acetaminophen 500 Mg Tablet PO 02/21/25 10:46 PREOP ONE Celecoxib 400 mg 02/21/25 10:45 Celecoxib 200 Mg Capsule PO 02/21/25 10:46 PREOP ONE Gabapentin 600 mg 02/21/25 10:45 Gabapentin 600 Mg Tablet PO 02/21/25 10:46 PREOP ONE Lactated Ringer's 1,000 mls @ 40 mls/hr 02/21/25 10:45 IV .Q25H FLAVIA Cefazolin Sodium 2 gm/ Sodium 110 mls @ 150 mls/hr 02/21/25 10:45 Chloride IV 02/21/25 11:28 INTRAOP ONE Magnesium Sulfate 1 gm/ 102 mls @ 408 mls/hr 02/21/25 10:45 Dextrose IV 02/21/25 10:59 PREOP ONE Metronidazole 500 mg in 100 mls @ 100 mls/hr 02/21/25 10:45 Flagyl IV 02/21/25 11:44 X1 ONE Insulin Human Lispro 0 unit 02/21/25 10:45 Insulin Lispro 100 Unit/Ml Insuln.Pen SC 02/21/25 18:00 Q4H PRN PRN BG >/= 180, SEE PROTOCOL Protocol Ondansetron HCl 4 mg 02/21/25 10:45 Ondansetron 4 Mg/2 Ml Vial IV 02/21/25 10:46 INTRAOP ONE Phenazopyridine HCl 190 mg 02/21/25 10:45 Phenazopyridine 95 Mg Tablet PO 02/21/25 10:46 PREOP ONE Scopolamine HBr 1 patch 02/21/25 10:45 Scopolamine 1mg/72hr Patch TD 02/21/25 10:46 PREOP ONE PFSH Medical History Wears glasses Anxiety Bladder disease High cholesterol History of IBS Gastric reflux Non-smoker Asthma Shortness of breath on exertion PONV (postoperative nausea and vomiting) History of edema History of stress test History of irregular heartbeat Chest pain Neck pain Back pain Abnormal bruising Migraine Stomach ulcer Hemorrhoids HTN (hypertension) Home Medications ?Medication ?Instructions ?Recorded ?Last Taken ?Type lisinopril 10 mg tablet 10 mg PO DAILY HTN #30 tabs 11/19/18 03/14/19 History alprazolam 0.5 mg tablet (Xanax) 0.5 mg PO QHS PRN anx iety 12/21/24 Unknown History tirzepatide 10 mg/0.5 mL 10 mg subcut CAMEJO 12/21/2409/30 History subcutaneous pen injector (Mounjaro) vonoprazan 20 mg tablet 20 mg PO QDAY GERD 12/21/24 Unknown History atorvastatin 20 mg tablet (Lipitor) 20 mg PO QDAY hld 12/23/24 Unknown History linaclotide 290 mcg capsule 290 mcg PO DAILY IBS 02/13 Unknown History (Linzess) Allergy/AdvReac Type Severity Reaction Status Date / Time hydromorphone (From Dilaudid) Allergy Severe Shortness Verified 02/13/25 13:04 of breath Family History Mother Diabetes Hypertension Father Seizures Brain tumor Grandfather Myocardial infarction Grandmother Myocardial infarction Surgical History History of surgery History of endometrial ablation H/O tubal ligation right hip arthroscopy H/O foot surgery S/P Social History adopted: No number of children: 2 current occupational status: employed current occupation: [employer] sexually active: Yes Smoking Status: Never smoker alcohol intake: never substance use type: does not use what type of physical activity do you participate in: walking seatbelt use: always do you feel safe at home: Yes 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
[2025-02-21 09:09] LABS: Internal QC Validated? YES +Cl - CLEAR BKGD; Pregnancy, Urine Negative Negative
[2025-02-21 09:24] LABS: Hematocrit 35.9 % (37-47); Hemoglobin 11.4 g/dL (12.0-15.0); Mean Corp Hgb Conc 31.8 g/dL (32-36); Mean Corpuscular Volume 86.9 fL (81-99); Mean Platelet Vol. 10.2 fl (6.2-12.0); Platelet Count 227 K/mm3 (150-450); RBC Distribution Width CV 13.4 % (11.6-14.6); RBC Distribution Width SD 42.7 fl (35.1-43.9); Red Blood Count 4.13 M/mm3 (4.2-5.4); White Blood Count 6.0 K/mm3 (4.4-11.0)
[2025-02-21] MEDS: Lactated Ringers 1,000 ML 40 ML IV (09:29)
[2025-02-21] MEDS: Scopolamine 1mg/72hr Patch 1 PATCH TD (09:29)
[2025-02-21] MEDS: metroNIDAZOLE 500 MG/100 ML BAG 100 MG IV (09:29)
[2025-02-21] MEDS: Magnesium 1 GM over 15 mins IV (09:29)
--- OUTSIDE RECORDS SUMMARY | 2025-02-21 09:31 | XMS RPT_ITS | CCD ---
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 Jesus Alberto Payton Primary Care Provider Dr. Jesus Alberto Payton Referring Provider PIPPA Meléndez Attending Provider JESUS ALBERTO PAYTON DO Primary Care Physician MARK MORALES Primary Care Physician JESUS ALBERTO PAYTON DO Primary Care Unavailable JESUS ALBERTO PAYTON DO Attending Unavailable ANDREW PICHARDO, MARK Attending Sweetie PICHARDO, MARK Primary Care JESUS ALBERTO Brower DO Attending Unavailable ANDREW PICHARDO, MARK Primary Care Jessicavavenita PICHARDO, MARK Primary Care Jessicavai ej PICHARDO, MARK Attending JESUS ALBERTO Brower DO Primary Care Unavailable JESUS ALBERTO PAYTON DO Attending Unavailable Dr. Jesus Alberto Payton DO Primary Care Physician Dr. Jesus Alberto Payton DO Referring Provider Trent HOME CARE AIDE-CMarilyn Attending Physician [phone] ANDREW HOME CARE AIDE-C, MARK Primary Care Physician [phone] Trent HOME CARE AIDE-CMarilyn Referring Provider ANDREW, MARK Referring Unavailable VandMakenna Burnette Attending Unavailabl e ANDREW, MARK Primary Care Unavailable Makenna Lynch Attending Unavailabl e ANDREW, MARK Primary Care Unavailable Vande Makenna Silverio Attending Unavailabl e ANDREW, MARK Primary Care Unavailable Jesus Alberto Payton Primary Care Unavailable Jesus Alberto Payton Referring Unavailable Marilyn Newman Attending Unavailable ANDREW, MARK Primary Care Unavailable Marilyn Newman Attending Unavailable Yokastaman, Marilyn Referring Unavailable Trent, Marilyn Attending Unavailable Trent, Marilyn Referring Unavailable ANDREW, MARK Primary Care Unavailable Marilyn Newman Attending Unavailable Trent, Marilyn Referring Unavailable ANDREW, MARK Primary Care Unavailable Allergies Allergy Classification Reported Allergen(s) Allergy Type Date of Onset Reaction(s) Facility (1 source) HYDROmorphone Drug Allergy Anaphylaxis [facility] Work Phone: (10 sources) HYDROmorphone; Translations: [hydromorphone] Drug Allergy 0 Anaphylaxis [facility] (1 source) HYDROmorphone Drug Allergy 5 [facility] Repository Medications Current Medications Medication Drug Class(es) Dates Sig (Normalized) Sig (Original) 0.5 ML tirzepatide 25 MG/ML Auto-Injector [Mounjaro] (2 sources) Start: 01-07-2023 inject 1 dose by subcutaneous injection every week Mounjaro 12.5 mg/0.5 mL subcutaneous solution Dose : 12.5 mg =, Subcutaneous, qWeek, rotate injection sites, # 4 EA, 0 Refill(s) Start Date: 01/07/23 Status: Ordered Quantity: 4.0 Unit: EA Repeat number: 1 acetaminophen 500 mg oral tablet (6 sources) Start: 12-21-2019 acetaminophen 500 mg oral tablet Dose : 500 mg = 1 tab(s), Oral, q4h, PRN as needed for pain, # 100 tab(s), 0 Refill(s) Start Date: 12/21/19 Status: Ordered Medication Dispense Status: Completed Quantity: 100.0 Unit: tab(s) Total Allowed Fills: 1 Fills Dispensed: 0 albuterol MDI (90 mcg/inh) CFC free inhalation aerosol (6 sources) Start: 10-20-2024 take 2 puff(s) by inhalation four times daily albuterol MDI (90 mcg/inh) CFC free inhalation aerosol 2 puff(s), Inhalation, QID, # 18 gram(s), 1 Refill(s), Pharmacy: [facility], 157, cm, 10/20/24 9:10:00 EDT, Height, kg, 10/20/24 9:10:00 EDT, Dosing Weight Start Date: 10/20/24 Status: Ordered Medication Dispense Status: Completed Quantity: 18.0 Unit: g Total Allowed Fills: 2 Fills Dispensed: 0 Start: 02-02-2015 take 2 puff(s) by in halation four times daily albuterol MDI (90 mcg/inh) CFC free inhalation aerosol 2 puff(s), Inhalation, QID Start Date: 02/02/15 Status: Ordered Repeat number: 1 Start: 02-02-2015 take 2 puff(s) by in halation four times daily albuterol MDI (90 mcg/inh) CFC free inhalation aerosol 2 puff(s), Inhalation, QID Start Date: 02/02/15 Status: Ordered ALPRAZolam 0.5 mg oral tablet (4 sources) Benzodiazepine Start: 12-21-2024 take 1 tablet by abdoulaye th at bedtime as needed Start: 10-20-2024 End: 01-18-2025 ALPRAZolam 0.25 mg oral tabl et Dose : 0.25 mg = 1 tab(s), Oral, q8h, PRN as needed for anxiety, # 60 tab(s), 0 Refill(s), Pharmacy: [facility], Panic attacks, 157, cm, 10/20/24 9:10:00 EDT, Height, 89, kg, 10/20/24 9:10:00 EDT, Dosing Weight Start Date: 10/20/24 Stop Date: 01/18/25 Status: Ordered Medication Dispense Status: Completed Quantity: 60.0 Unit: tab(s) Total Allowed Fills: 1 Fills Dispensed: 0 Indications: Panic disorder [episodic paroxysmal anxiety]; Start: 03-08-2024 End: 03-28-2024 ALPRAZolam 0.25 mg oral tabl et Dose : 0.25 mg = 1 tab(s), Oral, q8h, PRN as needed for anxiety, X 20 day(s), # 60 tab(s), 0 Refill(s), 03/28/24 10:50:00 AM EST, Pharmacy: [facility], Panic attacks, 157.5, cm, 03/08/24 9:59:00 EST, Height, 90, kg, 03/08/24 9:59:00 EST, Dosing Weight Start Date: 03/08/24 Stop Date: 03/28/24 Status: Ordered Quantity: 60.0 Unit: tab(s) Repeat number: 1 Indication: Panic disorder [episodic paroxysmal anxiety] atorvastatin 20 mg oral tablet (2 sources) HMG-CoA Reductase Inhibitor Start: 12-23-2024 take 1 tablet by mouth once daily Start: 10-20-2024 atorvastatin 4 0 mg oral tablet Dose : 40 mg = 1 tab(s), Oral, Daily, # 90 tab(s), 1 Refill(s), Pharmacy: [facility], Hyperlipidemia, 157, cm, 10/20/24 9:10:00 EDT, Height, kg, 10/20/24 9:10:00 EDT, Dosing Weight Start Date: 10/20/24 Status: Ordered Medication Dispense Status: Completed Quantity: 90.0 Unit: tab(s) Total Allowed Fills: 2 Fills Dispensed: 0 Indications: Hyperlipidemia, unspecified; eletriptan 40 mg oral tablet (6 sources) Serotonin-1b and Serotonin-1d Receptor Agonist Start: 03-08-2024 eletriptan 40 mg ora l tablet Dose : 40 mg = 1 tab(s), Oral, Daily, PRN for migraine headache, may repeat dose once in 2 hours, # 12 tab(s), 3 Refill(s), Pharmacy: [facility], 157.5, cm, 03/08/24 9:59:00 EST, Height, kg, 03/08/24 9:59:00 EST, Dosing Weight Start Date: 03/08/24 Status: Ordered Quantity: 12.0 Unit: tab(s) Repeat number: 4 Start: 11-26-2021 eletriptan 40 mg oral tablet Dose : 40 mg = 1 tab(s), Oral, Daily, PRN for migraine headache, may repeat dose once in 2 hours, # 12 tab(s), 3 Refill(s), Pharmacy: [facility], 158.5, cm, 11/26/21 9:38:00 EDT, Height, kg, 11/26/21 9:38:00 EDT, Dosing Weight Start Date: 11/26/21 Status: Ordered Start: 02-13-2017 End: 11-19-2018 Eletriptan 40 MG tablet Disc ontinued 40 mg PO NEEDED as needed for Migraine Symptoms February 13, 2017 1:00am November 19, 2018 5:33pm Comment on above: Take 40 mg by mouth as needed. may repeat in 2 hours if necessary etodolac 500 mg oral tablet (8 sources) Nonsteroidal Anti-inflammatory Drug Start: 09-04-2021 End: 12-21-2024 etodolac 500 mg oral tablet Dose : 500 mg = 1 tab(s), Oral, BID, PRN Pain, # 180 tab(s), 1 Refill(s), Pharmacy: [facility], 156, cm, 01/07/23 16:05:00 EDT, Height, kg, 01/07/23 16:05:00 EDT, Dosing Weight Start Date: 01/07/23 Status: Ordered Medication Dispense Status: Completed Quantity: 180.0 Unit: tab(s) Total Allowed Fills: 2 Fills Dispensed: 0 ferrous sulfate 140 mg extended release oral tablet (3 sources) Start: 10-20-2024 End: 04-18-2025 ferrous sulfate (as elemental iron) 45 mg oral tablet, extended release Dose : 45 mg = 1 tab(s), Oral, BID, Take along with a vitamin C 500 mg tab., # 180 tab(s), 1 Refill(s), Pharmacy: [facility], Iron deficiency anemia, 157, cm, 10/20/24 9:10:00 EDT, Height, kg, 10/20/24 9:10:00 EDT, Dosing Weight Start Date: 10/20/24 Stop Date: 04/18/25 Status: Ordered Medication Dispense Status: Completed Quantity: 180.0 Unit: tab(s) Total Allowed Fills: 2 Fills Dispensed: 0 Indications: Other iron deficiency anemias; Start: 03-18-2024 ferrous sulfat e (as elemental iron) 45 mg oral tablet, extended release Dose : 45 mg = 1 tab(s), Oral, BID, Take along with a vitamin C 500 mg tab., # 180 tab(s), 3 Refill(s), Pharmacy: [facility], Iron deficiency anemia, 157.5, cm, 03/08/24 9:59:00 EST, Height, kg, 03/08/24 9:59:00 EST, Dosing Weight Start Date: 03/18/24 Status: Ordered Quantity: 180.0 Unit: tab(s) Repeat number: 4 Indications: Other iron deficiency anemias; linaclotide 0.072 mg oral capsule (2 sources) Guanylate Cyclase-C Agonist Start: 12-21-2024 take 1 capsule by mouth once daily take 1 capsule by mouth once gretel ly linaCLOtide (LINZESS) 72 mcg capsule Take 1 capsule by mouth once daily. Administer on an empty stomach. Swallow whole; DO NOT crush or chew. 0 Active Comment on above: Take 1 capsule by [facility] once daily. Administer on an empty stomach. Swallow whole; DO NOT crush or chew. lisinopril 10 mg oral tablet (10 sources) Angiotensin Converting Enzyme Inhibitor Start: 10-20-2024 lisinopril 10 mg oral tablet Dose : 10 mg = 1 tab(s), Oral, qDay, # 90 tab(s), 1 Refill(s), Pharmacy: [facility], 157, cm, 10/20/24 9:10:00 EDT, Height, kg, 10/20/24 9:10:00 EDT, Dosing Weight Start Date: 10/20/24 Status: Ordered Medication Dispense Status: Completed Quantity: 90.0 Unit: tab(s) Total Allowed Fills: 2 Fills Dispensed: 0 Start: 11-19-2018 lisinopril 10 mg oral tablet Dose : 10 mg = 1 tab(s), Oral, qDay, # 90 tab(s), 3 Refill(s), Pharmacy: [facility], 157, cm, 05/25/23 16:01:00 EDT, Height, kg, 05/25/23 16:01:00 EDT, Dosing Weight Start Date: 02/18/24 Status: Ordered Quantity: 90.0 Unit: tab(s) Repeat number: 4 Comment on above: Take 10 mg by mouth once daily. omeprazole 40 mg delayed release oral capsule (13 sources) Proton Pump Inhibitor Start: 03-08-2024 End: 04-18-2025 omeprazole 40 mg oral delayed release capsule Dose : 40 mg = 1 cap(s), Oral, BID, # 180 cap(s), 1 Refill(s), Pharmacy: [facility], GERD without esophagitis, 157, cm, 10/20/24 9:10:00 EDT, Height, kg, 10/20/24 9:10:00 EDT, Dosing Weight Start Date: 10/20/24 Stop Date: 04/18/25 Status: Ordered Medication Dispense Status: Completed Quantity: 180.0 Unit: cap(s) Total Allowed Fills: 2 Fills Dispensed: 0 Indications: Gastro-esophageal reflux disease without esophagitis; Start: 02-27-2021 omeprazole 40 mg oral delayed release capsule Dose : 40 mg = 1 cap(s), Oral, qDay, # 90 cap(s), 3 Refill(s), Pharmacy: [facility], GERD without esophagitis, 158, cm, 02/27/21 8:09:00 EST, Height, kg, 02/27/21 8:09:00 EST, Dosing Weight Start Date: 02/27/21 Status: Ordered Start: 02-13-2017 End: 12-21-2024 take 2 tablets by mouth once daily Omeprazole Magnesium 20 mg tablet,delayed release (DR/EC) Discontinued 40 mg PO DAILY November 19, 2018 5:33pm December 21, 2024 1:34pm Start: 02-13-2017 End: 11-19-2018 take 40 mg by mouth once daily Omeprazole Magnesium Ac tive 40 MG PO DAILY November 19, 2018 5:33pm Start: 02-02-2017 PRILOSEC 20 MG CPDR OMEPRAZOLE [id number] Kerri S Josue take 40 mg by mouth once daily O MEPRAZOLE ORAL Take 40 mg by mouth once daily. 0 Active take 1 capsule by [facility] once daily omeprazole (PRILOSEC) 10 MG delayed release capsule Take 10 mg by mouth daily 0 Active Comment on above: Take 40 mg by mouth once daily. Tirzepatide (1 source) Start: 5 tirzepatide 12.5 mg/0.5 mL subcutaneous solution (1 source) Start: 5 inject 1 dose by subcutaneous injection every week tirzepatide 12.5 mg/0.5 mL subcutaneous solution Dose : 12.5 mg =, Subcutaneous, qWeek, rotate injection sites, # 4 EA, 0 Refill(s), Pharmacy: [facility], 157.5, cm, 03/08/24 9:59:00 EST, Height, kg, 03/08/24 9:59:00 EST, Dosing Weight Start Date: 03/14/24 Status: Ordered Quantity: 4.0 Unit: EA Repeat number: 1 tirzepatide 7.5 mg/0.5 mL subcutaneous solution (1 source) Start: 5 inject 1 dose by subcutaneous injection every week tirzepatide 7.5 mg/0.5 mL subcutaneous solution Dose : 7.5 mg =, Subcutaneous, qWeek, rotate injection sites, # 2 mL, 0 Refill(s) Start Date: 10/20/24 Status: Ordered Medication Dispense Status: Completed Quantity: 2.0 Unit: mL Total Allowed Fills: 1 Fills Dispensed: 0 Vonoprazan (1 source) Start: 5 take 1 tablet by mouth once daily vonoprazan 20 MG Oral Tablet [Voquezna] (1 source) Start: 5 Voquezna 20 mg oral tablet Dose : 20 mg = 1 tab(s), Oral, qDay, # 30 EA, 2 Refill(s), Pharmacy: [facility] GERD with esophagitis, 157, cm, 11/04/24 13:00:00 EDT, Height, kg, 11/04/24 13:00:00 EDT, Dosing Weight Start Date: 11/04/24 Status: Ordered Medication Dispense Status: Completed Quantity: 30.0 Unit: EA Total Allowed Fills: 3 Fills Dispensed: 0 Indications: Gastro-esophageal reflux disease with esophagitis, without bleeding; Completed/Discontinued Medications Medication Drug Class(es) Dates Sig (Normalized) Sig (Original) acetaminophen 325 mg / oxyCODONE hydrochloride 5 mg oral tablet (4 sources) Opioid Agonist Start: 09-04-2021 End: 09-27-2021 Oxycodone-Acetamino phen 5-325 mg tablet Discontinued 1 {tbl} PO as needed 0 September 04, 2021 12:00am September 27, 2021 1:07pm Start: 09-04-2021 End: 09-27-2021 Oxycodone-Acetaminophen Disc ontinued 1 TABLET PO September 04, 2021 12:00am September 27, 2021 1:07pm Start: 02-17-2017 End: 02-27-2017 Oxycodone-Acetaminophen 1 TA BLET tablet Discontinued 1 - 2 {tbl} PO EVERY 4 HOURS NEEDED as needed for Pain 60 February 17, 2017 1:00am February 27, 2017 3:05pm Start: 02-17-2017 End: 02-27-2017 take 1 tablet by mouth every four hours as needed Oxycodone-Acetaminophen Discontinued 1 - 2 TABLET PO EVERY 4 HOURS NEEDED 60 February 17, 2017 1:00am February 27, 2017 3:05pm [id number] actuat albuterol 0.09 mg/actuat metered dose inhaler (3 sources) beta2-Adrenergic Agonist Start: 02-13-2017 End: 11-19-2018 Albuterol Sulfate 1 INHALER inhaler Discontinued 1 - 2 NMA INHALATION EVERY 4 HOURS NEEDED as needed for Sob &/Or Wheezing February 13, 2017 1:00am November 19, 2018 5:33pm Start: 02-13-2017 End: 11-19-2018 take 1 puff(s) by inhalation every four hours as needed Albuterol Sulfate Discontinued 1 - 2 PUFF INHALATION EVERY 4 HOURS NEEDED February 13, 2017 1:00am November 19, 2018 5:33pm Start: 02-02-2017 PROAIR HFA 108 (90 Base) MCG/ACT AERS ALBUTEROL SULFATE [id number] Kerri Morrow Josue 12 hr buPROPion hydrochloride 90 mg / naltrexone hydrochloride 8 mg extended release oral tablet (2 sources) Opioid Antagonist, Aminoketone Start: 08-10-2020 End: 06-28-2021 Naltrexone-Bupropion (Contrave) 8-90 mg tablet extended release Discontinued NMA PO August 10, 2020 12:00am June 28, 2021 10:19am ciprofloxacin 500 mg oral tablet (1 source) Quinolone Antimicrobial Start: 08-26-2023 End: 12-21-2024 take 1 tablet by mouth twice daily Ciprofloxacin Hcl 500 mg tablet Discontinued 500 mg PO TWICE A DAY 10 August 26, 2023 12:00am December 21, 2024 1:34pm clotrimazole 10 mg oral lozenge (2 sources) Azole Antifungal Start: 03-22-2021 End: 04-01-2021 Clotrimazole 10 mg brissa Discontinued 10 mg MUCOUS MEM THREE TIMES A DAY 30 10 March 22, 2021 1:00am March 31, 2021 1:00am April 01, 2021 1:01am docusate sodium 100 mg oral capsule (2 sources) Start: 02-17-2017 End: 11-19-2018 take 1 capsule by mouth twice daily as needed for constipation Docusate Sodium 100 MG capsule Discontinued 100 mg PO TWICE DAILY NEEDED as needed for Constipation 10 February 17, 2017 1:00am November 19, 2018 5:33pm doxycycline hyclate 100 mg oral capsule (2 sources) Tetracycline-clas s Drug Start: 08-25-2022 End: 08-26-2023 take 1 capsule by mouth twice daily Doxycycline Hyclate 100 mg capsule Discontinued 100 mg PO TWICE A DAY 20 August 25, 2022 12:00am August 26, 2023 6:16am Norethindrone-E.E stradiol-Iron (2 sources) Estrogen Start: 11-19-2018 End: 09-21-2020 Norethindrone-E.Estradi ol-Iron 1 mg-10 mcg (24)/10 mcg (2) tablet Discontinued 1 {tbl} PO DAILY November 19, 2018 12:00am September 21, 2020 8:28am Start: 11-19-2018 End: 09-21-2020 take 1 tablet by mouth once daily Norethindrone-E.Estradiol-Iron Discontin ued 1 TABLET PO DAILY November 19, 2018 12:00am September 21, 2020 8:28am gabapentin 600 mg oral tablet (3 sources) Anti-epileptic Agent Start: 02-27-2021 End: 05-28-2021 gabapentin 600 mg oral tablet Dose : 600 mg = 1 tab(s), Oral, TID, # 90 tab(s), 2 Refill(s), Pharmacy: [facility], Neuropathy of right lower extremity, 158, cm, 02/27/21 8:09:00 EST, Height, 113.9, kg, 02/27/21 8:09:00 EST, Dosing Weight Start Date: 02/27/21 Stop Date: 05/28/21 Status: Ordered Start: 08-10-2020 End: 12-21-2024 Gabapentin 600 mg tablet Dis continued 900 mg PO August 10, 2020 12:00am December 21, 2024 1:34pm Start: 08-10-2020 Gabapentin Act zach 900 MG PO August 10, 2020 12:00am ibuprofen 200 mg oral capsule (1 source) Nonsteroidal Anti-inflammatory Drug Start: 02-02-2017 IBUPROFEN 200 MG CAPS IBUPROFEN [id number] Kerri Salas meloxicam 15 mg oral tablet (2 sources) Nonsteroidal Anti-inflammatory Drug Start: 02-17-2017 End: 11-19-2018 take 1 tablet by mouth once daily Meloxicam 15 MG tablet Discontinued 15 mg PO DAILY 30 2 February 17, 2017 1:00am November 19, 2018 5:33pm methylPREDNISolone 4 mg oral tablet (2 sources) Corticosteroid Start: 08-13-2020 End: 09-21-2020 take 1 tablet by mouth once Methylprednisolone (Medrol (Mathieu)) 4 mg tablets,dose pack Discontinued 0 PO per package directions 21 August 13, 2020 12:00am September 21, 2020 8:26am PO PER PKG DIR montelukast 10 mg oral tablet (1 source) Leukotriene Receptor Antagonist Start: 02-02-2017 SINGULAIR 10 MG TABS MONTELUKAST SODIUM [id number] Kerri Salas nabumetone 750 mg oral tablet (2 sources) Nonsteroidal Anti-inflammatory Drug Start: 08-10-2020 End: 09-04-2021 Nabumetone 750 mg tablet Discontinued NMA PO August 10, 2020 12:00am September 04, 2021 9:18am Start: 08-10-2020 End: 09-04-2021 Nabumetone Discontinued EACH PO August 10, 2020 12:00am September 04, 2021 9:18am nitrofurantoin, macrocrystals 25 mg / nitrofurantoin, monohydrate 75 mg oral capsule (2 sources) Nitrofuran Antibacterial Start: 09-21-2020 End: 09-28-2020 take 1 capsule by mouth every twelve hours at mealtime Nitrofurantoin Monohyd/M-Cryst 100 mg capsule Discontinued 1 NMA PO Q12H 14 7 0 September 21, 2020 12:00am September 27, 2020 12:00am September 28, 2020 12:01am administer with a meal/food; swallow whole; do not open, crush, dissolve , or chew norethindrone-e.estr adiol-iron (LO LOESTRIN FE ORAL) (1 source) norethindrone-e. est radiol-iron (LO LOESTRIN FE ORAL) Take by mouth once daily. 0 Active Comment on above: Take by mouth once d aily. 2 ml ondansetron 2 mg/ml injection (4 sources) Serotonin-3 Receptor Antagonist Start: 02-22-2021 End: 02-22-2021 ondansetron (ZOFRAN) injection 4 mg Start: 02-22-2021 take 1 tablet by [facility] three times daily as needed for nausea ondansetron (ZOFRAN-ODT) 4 MG disintegrating tablet Take 1 tablet by mouth 3 times daily as needed for Nausea or Vomiting 21 tablet 0 02/22/2021 Active Start: 03-15-2019 End: 06-28-2021 take 1 tablet by mouth every eight hours as needed for nausea Ondansetron 4 MG tablet Discontinued 4 mg PO EVERY 8 HOURS NEEDED as needed for Nausea March 15, 2019 1:00am June 28, 2021 10:19am predniSONE 20 mg oral tablet (2 sources) Start: 08-25-2022 End: 12-04-2022 take 1 tablet by mouth twice daily Prednisone 20 mg tablet Discontinued 20 mg PO TWICE A DAY 10 0 August 25, 2022 12:00am December 04, 2022 3:33pm promethazine hydrochloride 25 mg oral tablet (2 sources) Phenothiazine Start: 02-17-2017 End: 11-19-2018 take 1 tablet by mouth every four hours as needed for nausea Promethazine 25 MG tablet Discontinued 25 mg PO EVERY 4 HOURS NEEDED as needed for Nausea 10 0 February 17, 2017 1:00am November 19, 2018 5:33pm Tirzepatide (1 source) Start: 12-04-2022 End: 12-21-2024 Tirzepatide (Mounjaro) 12.5 mg/0.5 mL pen injector Discontinued 12.5 mg SC EVERY WEEK December 04, 2022 12:00am December 21, 2024 1:34pm valACYclovir 1000 mg oral tablet (2 sources) Herpesvirus Nucleoside Analog DNA Polymerase Inhibitor, Herpes Simplex Virus Nucleoside Analog DNA Polymerase Inhibitor, Herpes Zoster Virus Nucleoside Analog DNA Polymerase Inhibitor Start: 11-19-2018 End: 11-27-2018 Valacyclovir 1 gram tablet Discontinued 1000 mg PO Q8H 21 7 November 19, 2018 12:00am November 25, 2018 12:00am November 27, 2018 12:08am Zoster without complications Start: 11-19-2018 End: 11-27-2018 take 1000 mg by mouth every eight hours Valacyclovir Discontinued 1000 MG PO Q8H 21 November 19, 2018 12:00am November 27, 2018 12:08am Problems Active Problems Problem Classification Problem Date Documented Date Episodic/Chronic Abdominal pain (8 sources) Left lower quadrant pain; Translations: [Left lower quadrant pain] Episodic Anxiety disorders (5 sources) Panic attack 01-28-2023 Chronic Asthma (6 sources) Asthma; Translations: [Exercise-induced asthma] 02-02-2015 Chronic Benign neoplasm of uterus (1 source) Leiomyoma of uterus, unspecified; Translations: [Leiomyoma of uterus, unspecified] Onset: 01-12-2025 Episodic Deficiency and other anemia (3 sources) Anemia 03-16-2024 Episodic Deficiency and other anemia (3 sources) Iron deficiency anemia 03-18-2024 Episodic Diabetes mellitus without complication (2 sources) Type 2 diabetes mellitus 03-08-2024 Chronic Diabetes mellitus without complication (3 sources) Prediabetes 06-01-2024 Episodic Disorders of lipid metabolism (1 source) Hyperlipidemia 10-20-2024 Chronic Esophageal disorders (6 sources) Gastroesophageal reflux disease; Translations: [Gastro-esophageal reflux disease with esophagitis] 03-08-2024 Chronic Essential hypertension (6 sources) Essential hypertension 11-26-2021 Chronic Gastritis and duodenitis (5 sources) Gastritis 01-07-2023 Episodic Genitourinary symptoms and ill-defined conditions (2 sources) Dysuria; Translations: [Dysuria] 09-21-2020 Episodic Headache; including migraine (6 sources) Migraine 06-23-2019 Chronic Mycoses (2 sources) Candidiasis of mouth and esophagus; Translations: [Candidal esophagitis] 03-22-2021 Episodic Neoplasms of unspecified nature or uncertain behavior (2 sources) Neoplasm of bone; Translations: [Neoplasm of unspecified behavior of bone, soft tissue, and skin] 09-04-2021 Episodic Nonspecific chest pain (1 source) Atypical chest pain 11-04-2024 Episodic Other connective tissue disease (1 source) Thigh pain; Translations: [Pain in left thigh] 09-04-2021 Episodic Other connective tissue disease (2 sources) Tendinitis of left quadriceps tendon; Translations: [Other specified enthesopathies of left lower limb, excluding foot] 09-04-2021 Episodic Other connective tissue disease (2 sources) Pain in lower limb; Translations: [Pain in leg, unspecified] 08-13-2020 Episodic Other connective tissue disease (1 source) Pain of left thigh; Translations: [Pain in left thigh] 09-04-2021 Episodic Other connective tissue disease (1 source) Tendinitis of right hip; Translations: [Other specified enthesopathies of right lower limb, excluding foot] 06-05-2023 Episodic Other female genital disorders (2 sources) Postcoital bleeding; Translations: [Postcoital and contact bleeding] 12-21-2024 Chronic Other female genital disorders (2 sources) Abnormal uterine bleeding; Translations: [Abnormal uterine and vaginal bleeding, unspecified] 12-21-2024 Chronic Comment on above: s/p ablation x 10 ye ars Other female genital disorders (1 source) Abnormal uterine and vaginal bleeding, unspecified; Translations: [Abnormal uterine and vaginal bleeding, unspecified] Onset: 01-12-2025 Chronic Other female genital disorders (1 source) Postcoital and contact bleeding; Translations: [Postcoital and contact bleeding] Onset: 01-12-2025 Chronic Other nervous system disorders (7 sources) Neuropathy of lower limb; Translations: [Meralgia paresthetica, unspecified lower limb] 04-26-2019 Chronic Other nervous system disorders (2 sources) Meralgia paresthetica; Translations: [Meralgia paresthetica, left lower limb] 09-30-2021 Chronic Other nervous system disorders (2 sources) Idiopathic peripheral neuropathy; Translations: [Hereditary and idiopathic neuropathy, unspecified] 08-16-2021 Chronic Other nervous system disorders (1 source) Femoral neuropathy; Translations: [Lesion of femoral nerve, unspecified lower limb] 12-04-2022 Chronic Other nervous system disorders (1 source) Meralgia paresthetica of left leg; Translations: [Meralgia paresthetica, left lower limb] 09-30-2021 Chronic Other nervous system disorders (1 source) Meralgia paresthetica of right leg; Translations: [Meralgia paresthetica, right lower limb] 09-27-2021 Chronic Other non-traumatic joint disorders (6 sources) Femoral acetabular impingement; Translations: [Hip pain] Onset: 08-13-2016 09-04-2016 Episodic Other non-traumatic joint disorders (3 sources) Hip pain; Translations: [Pain in right hip] 08-01-2020 Episodic Other nutritional; endocrine; and metabolic disorders (1 source) Body mass index 40+ - severely obese 04-11-2020 Chronic Other nutritional; endocrine; and metabolic disorders (2 sources) Morbid obesity; Translations: [Morbid (severe) obesity due to excess calories] 09-04-2021 Chronic Other nutritional; endocrine; and metabolic disorders (3 sources) Body mass index 30+ - obesity 01-07-2023 Chronic Other nutritional; endocrine; and metabolic disorders (3 sources) Obesity 06-01-2024 Chronic Other screening for suspected conditions (not mental disorders or infectious disease) (2 sources) Encounter for screening mammogram for malignant neoplasm of breast; Translations: [Encounter for screening for malignant neoplasm of cervix] Onset: 01-02-2025 Episodic Other upper respiratory infections (3 sources) Acute rhinosinusitis; Translations: [Acute sinusitis, unspecified] 08-27-2022 Episodic Residual codes; unclassified (8 sources) Lipedema; Translations: [Edema, unspecified] 11-16-2019 Episodic Spondylosis; intervertebral disc disorders; other back problems (8 sources) Degeneration of lumbar intervertebral disc; Translations: [Other intervertebral disc degeneration, lumbar region] 02-27-2021 Chronic Spondylosis; intervertebral disc disorders; other back problems (5 sources) Lumbar radiculopathy; Translations: [Lumbosacral nerve root pain] 02-27-2021 Episodic Sprains and strains (5 sources) Other sprain of right hip, initial encounter; Translations: [Other sprain of right hip, subsequent encounter] Onset: 08-13-2016 09-04-2016 Episodic Unclassified (7 sources) Patient encounter status 11-26-2021 Unclassified (1 source) Post endometrial ablation syndrome; Translations: [Post endometrial ablation syndrome] Onset: 01-12-2025 Urinary tract infections (2 sources) Urinary tract infectious disease; Translations: [Urinary tract infection, site not specified] 09-21-2020 Episodic Viral infection (2 sources) Herpes zoster; Translations: [Zoster without complications] 11-19-2018 Episodic Past or Other Problems Problem Classification Problem Date Documented Da te Episodic/Chronic Unclassified (2 sources) right hip arthroscopy 10-07-2021 Comment on above: 02/20/17 Results Test Name Value Interpretation Reference Range Facility Genital Culture Comprehensiv lucrecia 01-15-2025 VAC Reason for Exam: Abnormal Uterine Bleeding Endometrial fluid NO GROWTH Normal [facility] Comment on above: Performed By: #### M 100.2000, M100.3200 #### [facility] Laboratory [facility] [place], [address] Estradiolon 01-12-2025 ESTRADIOL 63.5 pg/mL Normal [facility] Comment on above: Result Comment: FEMA LES ADULT FEMALE: Premenopausal: 15-350 pg/mL(E2 levels vary widely through the menstrual cycle) Postmenopausal: <10 pg/mL JIMENEZ STAGES MEAN AGE REFERENCE RANGES Stage I(>14 days and prepubertal) 7.1 years Undetectable-20 pg/mLL Stage II 10.5 years Undetectable-24 pg/mL Stage III 11.6 years Undetectable-60 pg/mL Stage IV 12.3 years 15-85 pg/mL Stage V 14.5 years 15-350 pg/mL Puberty onset (transition from Jimenez stage I to Jimenez stage II) occurs for girls at a median age of 10.5 (/- 2) years. There is evidence that it may occur up to 1 year earlier in obese girls and in girls. Progression through Jimenez stages is variable. Jimenez stage V (adult) should be reached by age 18. Performed By: #### L 3100.5055, L501.9520, L3300.1750 #### [facility] Laboratory [address] [place], [place], [id number] FSH and LHon 01-12-2025 FSH 4.8 mIU/mL Normal [facility] Comment on above: Result Comment: FEMA LE: Follicular: 1.4 - 18.1 mIU/mL Midcycle: 3.4 - 33.4 mIU/mL Luteal: 1.5 - 9.1 mIU/mL Post Menopause: 23.0 - 116.3 mIU/mL MALE: 1.4 - 18.1 mIU/mL Performed By: #### L 3100.5055, L501.9520, L3300.1750 #### [facility] Laboratory [address] [place], [place], [id number] LH 5.3 mIU/mL Normal [facility] Comment on above: Result Comment: FEMA LE: Follicular: 1.9-12.5 mIU/mL Midcycle: 8.7-76.3 mIU/mL Luteal: 0.5-16.9 mIU/mL Post Menopause: 15.9-54.0 mIU/mL MALE: 20-70 Years: 1.5-9.3 mIU/mL >70 Years: 3.1-34.6 mIU/mL Performed By: #### L 3100.5055, L501.9520, L3300.1750 #### [facility] Laboratory [address] [place], [place], [id number] Gram Stainon 01-12-2025 GS Reason for Exam: Abnormal Uterine Bleeding Endometrial fluid Gram Stain Very Rare Gram positive rods No cells seen No Gram negative diplococci Normal [facility] Comment on above: Performed By: #### M 100.2000, M100.3200 #### [facility] [address] [place], [address] Phosphorus Processing Supervisor Office Visit Reporton 01-12-2025 Phosphorus Processing Supervisor Office Visit Report [facility] [address], [address] [place] [address] OFFICE VISIT Date of Service: 01/12/25 MR#: [id number] Acct: [id number] Name: MAKENNA CHEN Lenin Rep #: [id number] : 1975 Provider: Dr. Makenna Swift DO Age/Sex: 49/F Location: [facility] Status: Signed Intake Vital Signs 12/21/24 13:29 01/12/25 08:57 Height 5 ft 2 in 5 ft 2 in Weight: 194 lb 2 oz 193 lb 2 oz BMI 35.5 35.3 BP 94/72 108/73 Intake Visit Reasons: Review US, Poss EMB *per CB Chief Complaint: Review US, EMB Telecommunications Repairer Required: No Is patient in pain?: No Allergies hydromorphone (From Dilaudid) Allergy (Severe, Verified 01/12/25 08:55) Shortness of breath Medications ???Medication ???Instructions ???Recorded ???Confirmed ???Type lisinopril 10 mg tablet 10 mg PO DAILY #30 tabs 11/19/18 1 03/14/24 History alprazolam 0.5 mg tablet (Xanax) 0.5 mg PO QHS PRN 12/21/24 5 History linaclotide 72 mcg capsule 72 mcg PO QDAY 12/21/24 01/12/25 H istory (Linzess) tirzepatide 10 mg/0.5 mL 10 mg subcut QWEEK 12/21/24 History subcutaneous pen injector (Mounjaro) vonoprazan 20 mg tablet 20 mg PO QDAY 12/21/24 01/12/25 Hi story atorvastatin 20 mg tablet (Lipitor) 20 mg PO QDAY 12/23/24 01/12/25 History Is last menstrual period known: No Post menopausal: No Patient : No : No PFSH PFSH Medical History Neck pain Back pain Abnormal bruising Migraine Stomach ulcer Hemorrhoids HTN (hypertension) Surgical History History of endometrial ablation H/O tubal ligation right hip arthroscopy H/O foot surgery S/P Family History Mother Diabetes Hypertension Father Seizures Brain tumor Grandfather Myocardial infarction Grandmother Myocardial infarction Social History adopted: No number of children: 2 current occupational status: employed current occupation: [employer] sexually active: Yes Smoking Status: Never smoker alcohol intake: never substance use type: does not use what type of physical activity do you participate in: walking seatbelt use: always do you feel safe at home: Yes 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 Date Name GA/Weeks Outcome Route Bth Weight Infant Gen Labor Lgth Anesthesia Del Locatn Provider FOB Unknown - 2002 live - full term Female shana lehman Unknown - 2006 Male Bro Delivery Date: Last Updated by: Staci Hector breech HPI Review US, Poss EMB *per CB Details: The patient is a 49-year-old female ( sections) with a history of endometrial ablation presenting for post-coital bleeding and chronic pelvic pain. Post-Coital Bleeding - Underwent endometrial ablation approximately 8 years ago. - Reports post-coital bleeding, which has been a persistent issue for several years. - Bleeding is often accompanied by severe cramping. - Describes the bleeding as inevitable during intercourse, stating, my , it doesn't bother him, but, you know, I'm like, because it ends up on him sometimes, you know, it's like, oh, it does not bother, he's used to it now, you know, but it's just, it's inevitable. Chronic Pelvic Pain - Reports progressively worsening pelvic pain, initially intermittent but now constant. - Describes the pain as really really bad and severe enough to interfere with daily activities. - Pain is not limited to post-coital episodes and can occur spontaneously. - Recently experienced a day where she felt like she was running a low-grade fever, but was unable to confirm due to a non-functional thermometer. - Pain first started almost three years ago while working a physically demanding job at [employer], leading to an ER visit where no cause was found. - Previous physician performed an ultrasound of the ovary but did not address the ongoing pain. Menstrual Irregularities - Reports experiencing occasional hot flashes, but does not feel she is in menopause yet. - Sister, who is three years older, is in menopause and experiences frequent hot flashes. - Uncertain about the onset of menopause, stating, I wondered when I started with this bleeding, I'm like, am I doing the opposite? Is, you know, with having the ablation, because I, when do I know? When do I know if I'm going into menopause or not? Family Hi (more content not included)... Normal [facility] Thyroid Stim Hormone (TSH)on 01-12-2025 TSH 1.720 uIU/mL Normal 0.300-4.200 [facility] Comment on above: Performed By: #### L 3100.5055, L501.9520, L3300.1750 #### [facility] Laboratory [address] [facility] [place], [place], [address] SCRN MAMM (CAD)W/BEE BILATo n 01-06-2025 SCRN MAMM (CAD)W/BEE BILAT [facility] [address] [place], [place] [address] SCRN MAMM (CAD)W/BEE BILAT MR#: [id number] Acct: [id number] Name: MAKENNA CHEN Rep #: [id number] : 1975 F 49 From: Jo Ann Khan MD PCP: DARIAN JEFFRIES Status: REG CLI Study: SCRN MAMM (CAD)W/BEE BILAT Date of Exam: 12/09 04/02 Exam# [id number] Ordering Dr: Marilyn Newman EXAM: SCRN MAMM (CAD)W/BEE BILAT DATE: 01/06/2025 CLINICAL HISTORY: F, Age 49 y/o , SCREEN FOR BREAST CANCER TECHNIQUE: Procedure Code: BISMWCADBTOM Modality: MG Procedure: SCRN MAMM (CAD)W/BEE BILAT COMPARISON: Baseline examination, no priors. FINDINGS: TISSUE DENSITY: The breasts are heterogeneously dense, which may obscure small masses. The mammogram demonstrates that the patient has dense breasts. Supplemental screening with whole breast ultrasound or MRI may be considered for further evaluation. Bilateral Breast Mammographic Findings: No significant masses, calcifications or other abnormalities are identified. BI/SCRN MAMM (CAD)W/BEE BILAT IMPRESSION: There is no mammographic evidence of malignancy. OVERALL FINAL ASSESSMENT BI-RADS 1: NEGATIVE. RECOMMENDATION: Routine annual follow-up in 1 Year Additional Recommendation none A letter with findings and recommendations will be mailed to the patient. Reading Location: [facility] CC: DARIAN Newman; DARIAN MARTINEZ Product Marketing Director: Signed Normal [facility] Pelvic w/ Transvaginalon Pelvic w/ Transvaginal [facility] Services [address] [place], [place] [id number] Pelvic w/ Transvaginal MR#: [id number] Acct: [id number] Name: MAKENNA CHEN Rep #: [id number] : 1975 F 49 From: Lolita Turk PCP: DARIAN JEFFRIES Status: REG CLI Study: Pelvic w/ Transvaginal Date of Exam: 12/30/24 Exam# [id number] Ordering Dr: Marilyn Newman PROCEDURE: PELVIC W/ TRANSVAGINAL 12/30/2024 REASON FOR EXAM: AUB History of 2 C-sections. History of uterine ablation and tubal ligation. 2 para 2. Perimenopausal. TECHNIQUE: Procedure Code: USPELTVAG Modality: US Procedure: PELVIC W/ TRANSVAGINAL COMPARISON: None FINDINGS: Measurements: Uterus: 7.6 x 5.5 x 4.0 cm with a volume of 86.7 mL Endometrial Thickness: 4 mm Right Ovary: 2.2 x 1.9 x 1.8 cm with a volume of 3.9 mL. Left Ovary: 3.0 x 2.5 x 1.8cm with a volume of 7.2 mL. Uterus: Uterus is anteverted. There is a hypoechoic heterogeneous mass within the posterior aspect of the myometrium measuring 2.2 x 1.7 x 1.6 cm. This mass abuts the endometrium. The mass is most compatible with an uterine fibroid. There is a benign-appearing cyst identified within the myometrium of the uterus abutting the endometrial canal. The cyst measures 9 x 8 x 6 mm. Endometrium: 4 mm. Endometrium is hyperechoic. Cervix: There is a small amount of fluid within the endocervical canal. Nabothian cyst. Right ovary: The right ovary was better seen on the transabdominal pelvic images. Right ovary measures 2.2 x 1.9 x 1.8 cm. Size, contour and echogenicity are within normal limits. There is blood flow to the ovary. Left ovary: The left ovary was better seen on the transvaginal images. There is a prominent follicular cyst measuring 1.8 x 1.3 x 1.2 cm. There is blood flow to the ovary. Other: Urinary bladder measures 7.1 x 8.7 x 2.7 cm. Bladder wall is not thickened. There are no filling defects or masses seen within the urinary bladder. Urinary bladder volume measures 88.3 mL. Cul-de-sac: There is no free fluid in the cul-de-sac. US/Pelvic w/ Transvaginal IMPRESSION: There is a uterine mass most compatible with an uterine fibroid. There is a benign-appearing cystic mass within the myometrium of the uterus abutting the endometrium. Normal appearance to right ovary. Left ovarian prominent follicular cyst. Reading Location: [facility] CC: DARIAN Newman; DARIAN MARTINEZ Product Marketing Director: Signed Normal [facility] PAP IG HPV APTIMA 16/18,45on 12-27-2024 ADEQ Comment Normal . [facility] Comment on above: Order Comment: Speci men Comment: [id number] Specimen Comment: No. of containers..01 ThinPrep Vial Result Comment: Sati sfactory for evaluation. Endocervical and/or squamous metaplastic cells (endocervical component) are present. Performed By: #### L 7400.0280 #### [facility] Laboratory [address] [place], [place], [id number] COMM . Normal . [facility] Comment on above: Order Comment: Speci men Comment: [id number] Specimen Comment: No. of containers..01 ThinPrep Vial Performed By: #### L 7400.0280 #### [facility] Laboratory [address] [place], [place], [address] COMMENT Comment Normal . [facility] Comment on above: Order Comment: Speci men Comment: [id number] Specimen Comment: No. of containers..01 ThinPrep Vial Result Comment: This liquid based ThinPrep(R) pap test was interpreted using the Aunt Bertha(R) Genius(TM) Cervical Algorithm whole slide imaging system. Performed By: #### L 7400.0280 #### [facility] Laboratory [address] [place], [address] DIAG Comment Normal . [facility] Comment on above: Order Comment: Speci men Comment: [id number] Specimen Comment: No. of containers..01 ThinPrep Vial Result Comment: NEGA TIVE FOR INTRAEPITHELIAL LESION OR MALIGNANCY. Performed By: #### L 7400.0280 #### [facility] Laboratory [address] [place], [address] HPV APTIMA, HR Negative Normal Negative [facility] Comment on above: Order Comment: Speci men Comment: [id number] Specimen Comment: No. of containers..01 ThinPrep Vial Result Comment: This nucleic acid amplification test detects fourteen high- risk HPV types (16,18,31,33,35,39,45,51,52,56,58,59,66,68) without differentiation. Performed By: #### L 7400.0280 #### [facility] Laboratory [address] [place], [place], [address] HPV Jyotsna Rfx Comment Normal . [facility] Comment on above: Order Comment: Speci men Comment: [id number] Specimen Comment: No. of containers..01 ThinPrep Vial Result Comment: Crit eria not met, HPV Genotype not performed. Performed at: - [facility] [id number] Rn Pacu: Khushboo Lee MD, Phone: [phone] Performed at: = - [facility] [id number] Rn Pacu: Khushboo Lee MD, Phone: [phone] Performed By: #### L 7400.0280 #### [facility] [address] [place], [address] PAPSMR Comment Normal . [facility] Comment on above: Order Comment: Speci men Comment: [id number] Specimen Comment: No. of containers..01 ThinPrep Vial Result Comment: The Pap smear is a screening test designed to aid in the detection of premalignant and malignant conditions of the uterine cervix. It is not a diagnostic procedure and should not be used as the sole means of detecting cervical cancer. Both false-positive and false-negative reports do occur. Performed By: #### L 7400.0280 #### [facility] Laboratory [address] [place], [place], [id number] PERFORM Comment Normal . [facility] Comment on above: Order Comment: Speci men Comment: [id number] Specimen Comment: No. of containers..01 ThinPrep Vial Result Comment: Xi Singh, Charm Filter Operator Helper (ASCP) Performed By: #### L 7400.0280 #### [facility] [address] [place], [address] Cervical or vaginal specimen microscopic examination by liquid based cytology (reportOrdered By: Marilyn Newman on 12-21-2024 Cytology report Cyto stain.thin prep Doc (Cvx/Vag) Comment . [facility] Comment on above: Criteria not met, HP V Genotype not performed.Performed at: - [facility] [id number] Director: Khushboo Lee MD, Phone: [phone] at: = - [facility] [id number] Director: Khushboo Lee MD, Phone: [phone] Cervical or vagninal specime n microscopic examination by cytology stain (reported asOrdered By: Marilyn Newman on 12-21-2024 Cytology report Cyto stain Doc (Cvx/Vag) Comment . [facility] Comment on above: The Pap smear is a s creening test designed to aid in thedetection of premalignant and malignant conditions of theuterine cervix. It is not a diagnostic procedure andshould not be used as the sole means of detecting cervicalcancer. Both false-positive and false-negative reports dooccur. Detection in cervical specim en of any of human papilloma virus (HPV) 16, 18, 31, 33,Ordered By: Marilyn Newman on 12-21-2024 HPV 16+18+31+33+35+39+45+5 1+52+56+58+59+66+68 DNA Probe+sig amp Ql (Cvx) Negative Negative [facility] Comment on above: This nucleic acid am plification test detects fourteen high- risk HPV types (16,18,31,33,35,39,45,51,52,56,58,59,66,68)without differentiation. Laboratory - CytologyOrdered By: Marilyn Newman on 12-21-2024 Charm Filter Operator Helper Cyto stain Nom (Cvx/Vag) [ID] Comment . [facility] Comment on above: Unique Singh, Cytol ogist (ASCP) Laboratory - Miscellaneous t estsOrdered By: Marilyn Newman on 10-15-2025 Service comment (Unsp spec) [Interp] . . [facility] No Panel InformationOrdered By: Marilyn Newman on 12-21-2024 Pap Smear Specimen Adequacy Comment . [facility] Comment on above: Satisfactory for oleg luation. Endocervical and/or squamous metaplasticcells (endocervical component) are present. 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 Is patient in pain?: No Allergies hydromorphone Allergy (Verified 08/26/23 06:14) Anaphylaxis Medications ???Medication ???Instructions ???Recorded ???Confirmed ???Type lisinopril 10 mg tablet 10 mg PO DAILY #30 tabs 11/19/18 1 History alprazolam 0.5 mg tablet (Xanax) 0.5 mg PO QHS PRN 12/21/24 5 History linaclotide 72 mcg capsule 72 mcg PO QDAY 12/21/24 12/21/24 H istory (Linzess) tirzepatide 10 mg/0.5 mL 10 mg subcut QWEEK 12/21/24 History subcutaneous pen injector (Mounjaro) vonoprazan 20 mg tablet 20 mg PO QDAY 12/21/24 12/21/24 Hi story Is last menstrual period known: No Post menopausal: No [facility] : No [facility] History Abnormal bruising Back pain Hemorrhoids HTN (hypertension) Migraine Neck pain Stomach ulcer Surgical History H/O foot surgery right hip arthroscopy S/P Family History (Updated 12/21/24 @ 13:37 by Staci Hector) Mother Diabetes Hypertension Father Seizures Brain tumor Grandfather Myocardial infarction Grandmother Myocardial infarction Social History (Updated 12/21/24 @ 13:39 by Staci Hector) adopted: No number of children: 2 current occupational status: employed current occupation: [employer]ie[employer] sexually active: Yes Smoking Status: Never smoker alcohol intake: never substance use type: does not use what type of physical activity do you participate in: walking seatbelt use: always do you feel safe at home: Yes 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 Date Name GA/Weeks Outcome Route Bth Weight Infant Gen Labor Lgth Anesthesia Del [facility] Provider FOB Unknown Princess- 2002 live - full term Female shana ton Unknown Zac- 2006 Male [place] Delivery Date: Last Updated by: Staci Hector breech HPI Encounter for routine gynecological examination Details: MAKENNA CHEN is a 49 year old who presents for annual exam and to establish care. She was a previous patient of Dr. Alanis in [place] (s/p ablation approx 10 years ago); Periods stopped however then started spotting a couple years ago however about a year ago when she has an orgasm/sexually active. Has to wear a tampon after this. Reports she also has right pelvic pain; occasionally shoots down her leg when at its worst. Last PAP: 2022; normal per pt. History of abnormal PAP: yes years ago per pt. Last mammogram: due History of abnormal mammogram: n/a Colon cancer screenin; cologaurd this year; normal per patient Other preventative health care screenings: Mark Martinez; PCP ROS Const Constitutional: Denies chills, fatigue, fever(s), headache(s), weight gain or weight loss Eyes Eyes: Denies change in vision ENT ENT: Denies dizziness Cardio Card: Denies chest pain Resp Resp: Denies cough or dyspnea GI GI: Denies abdominal pain, constipation, nausea or vomiting : Denies difficulty voiding, dysuria, hematuria, pelvic pain, prolapse symptoms, urinary frequency, urinary incontinence, urinary urgency, vaginal discharge, vaginal dryness, vaginal odor or vaginal pruritus Skin Skin/Breast: Denies alopecia, new lesions, rash, breast mass, breast pain or breast skin changes Neuro Neuro: Denies dizziness Psych Psych: Denies anxiety or depression Endo Endo: Denies cold intolerance, excessive sweating or heat intolerance Exam Const General: cooperative, healthy appearing, comfortable, no acute distress, well groomed and well hydrated Nutritional Appearance: well nourished Orientation: alert, awake and oriented x3 HENMT Head: normal to inspection and normocephalic Ears: hearing grossly normal bilaterally and external ears normal Nose: external nose normal Face and sinus: normal facial exam Eyes General: appearance normal, both eyes and all related structures Neck Neck: normal visual inspection, full ROM and no lymphadenopathy Thyroid: thyro (more content not included)... Normal [facility] .Auto Diffon 10-07-2024 Basophil, Absolute 0.1 10 3/mcL Normal 0.0-0.3 [facility] Comment on above: Performed By: #### C MP, CBC, LIPID, ADIFF, GFR, ANEU #### [address] [address] Basophils/100 WBC (Bld) 1.4 % Normal 0.0-2.5 [facility] Comment on above: Performed By: #### C MP, CBC, LIPID, ADIFF, GFR, ANEU #### [address] [address] Eosinophil, Absolute 0.3 10 3/mcL Normal 0.0-0.7 [facility] Comment on above: Performed By: #### C MP, CBC, LIPID, ADIFF, GFR, ANEU #### [address] [address] Eosinophils/100 WBC (Bld) 5.0 % Normal 0.0-6.0 [facility] Comment on above: Performed By: #### C MP, CBC, LIPID, ADIFF, GFR, ANEU #### [address] [place] [address] Lymphocyte, Absolute 2.3 10 3/mcL Normal 0.9-4.3 [facility] Comment on above: Performed By: #### C MP, CBC, LIPID, ADIFF, GFR, ANEU #### [address] [address] Lymphocytes/100 WBC (Bld) 39.6 % Normal 20.0-40.0 [facility] Comment on above: Performed By: #### C MP, CBC, LIPID, ADIFF, GFR, ANEU #### [address] [address] Monocyte, Absolute 0.5 10 3/mcL Normal 0.1-1.4 [facility] Comment on above: Performed By: #### C MP, CBC, LIPID, ADIFF, GFR, ANEU #### [address] [address] Monocytes/100 WBC (Bld) 8.8 % Normal 2.0-13.0 [facility] Comment on above: Performed By: #### C MP, CBC, LIPID, ADIFF, GFR, ANEU #### [address] [address] Neutrophils/100 WBC (Bld) 45.2 % Low 50.0-75.0 [facility] Comment on above: Performed By: #### C MP, CBC, LIPID, ADIFF, GFR, ANEU #### [address] [address] .GFRon 10-07-2024 Estimated Glomerular Filtration Rate 104 ml/min/1.73sqm Normal [facility] Comment on above: Result Comment: Stages of Chronic Kidney Disease (CKD) Stage Description eGFR(ml/min/1.73 sq.m.) CKD 1 Normal kidney function or >=90 normal kindney function with possible kidney damage (ex. Proteinuria) CKD 2 Kidney damage with mild loss 60-89 of kidney function CKD 3a Mild to moderate loss of kidney 45-59 function CKD 3b Moderate to severe loss of 30-44 of kindey function CKD 4 Severe loss of kidney function 15-29 CKD 5 Kidney failure <15 Note: (go live 2024) the eGFR calculation was updated to the 2020 CKD-EPI creatinine equation without a race factor to calculate the eGFR results. Performed By: #### F E, FERR #### [address] [address] .NEUABSon 10-07-2024 Neutrophil, Absolute 2.6 10 3/mcL Normal 2.3-8.1 [facility] Comment on above: Performed By: #### F E, FERR #### [address] [address] CBCon 10-07-2024 Erythrocyte distribution width (RBC) [Ratio] 13.7 % Normal 11.5-15.5 [facility] Comment on above: Performed By: #### C MP, CBC, LIPID, ADIFF, GFR, ANEU #### [place] [address] Hematocrit (Bld) [Volume fraction] 38.7 % Normal 34.0-46.0 [facility] Comment on above: Performed By: #### C MP, CBC, LIPID, ADIFF, GFR, ANEU #### [place] [address] Hgb 13.0 G/dL Normal 12.0-16.0 [facility] Comment on above: Performed By: #### C MP, CBC, LIPID, ADIFF, GFR, ANEU #### [place] [id number] MCH (RBC) [Entitic mass] 29.0 pg Normal 27.0-33.0 [facility] Comment on above: Performed By: #### C MP, CBC, LIPID, ADIFF, GFR, ANEU #### [place] [address] MCHC 33.5 G/dL Normal 32.0-36.0 [facility] Comment on above: Performed By: #### C MP, CBC, LIPID, ADIFF, GFR, ANEU #### [place] [address] MCV (RBC) [Entitic vol] 86.5 fL Normal 80.0-99.0 [facility] Comment on above: Performed By: #### C MP, CBC, LIPID, ADIFF, GFR, ANEU #### [address] [address] Platelet 207 10 3/mcL Normal 150-450 [facility] Comment on above: Performed By: #### C MP, CBC, LIPID, ADIFF, GFR, ANEU #### [address] [address] Platelet mean volume (Bld) [Entitic vol] 7.7 fL Normal 6.6-10.5 [facility] Comment on above: Performed By: #### C MP, CBC, LIPID, ADIFF, GFR, ANEU #### [address] [address] RBC 4.48 10 6/mcL Normal 4.10-5.30 [facility] Comment on above: Performed By: #### C MP, CBC, LIPID, ADIFF, GFR, ANEU #### [address] [address] WBC 5.7 10 3/mcL Normal 4.5-10.8 [facility] Comment on above: Performed By: #### C MP, CBC, LIPID, ADIFF, GFR, ANEU #### [address] [address] CMPon 10-07-2024 Albumin Level 3.6 G/dL Normal 3.5-5.0 [facility] Comment on above: Performed By: #### F E, FERR #### [address] [address] Albumin/Globulin [Mass ratio] 1.0 {ratio} Low 1.1-2.5 [facility] Comment on above: Performed By: #### F E, FERR #### [address] [address] ALP [Catalytic activity/Vol] 44 U/L Normal 40-135 [facility] Comment on above: Performed By: #### F E, FERR #### [address] [address] AST [Catalytic activity/Vol] 12 U/L Normal 10-40 [facility] Comment on above: Performed By: #### F E, FERR #### [address] [address] Bili Total 0.4 mg/dL Normal 0.2-1.0 [facility] Comment on above: Result Comment: Use of this assay is not recommended for patients undergoing treatment with eltrombopag due to the potential for falsely elevated results. Performed By: #### F E, FERR #### [address] [address] BUN/Creatinine Ratio 22 ratio Normal 7-27 [facility] Comment on above: Performed By: #### F E, FERR #### [address] [address] Calcium [Mass/Vol] 9.0 mg/dL Normal 8.4-10.2 [facility] Comment on above: Performed By: #### F E, FERR #### [address] [address] Chloride [Moles/Vol] 107 mmol/L Normal 98-107 [facility] Comment on above: Performed By: #### F E, FERR #### [address] [address] CO2 [Moles/Vol] 26 mmol/L Normal 22-29 [facility] Comment on above: Performed By: #### F E, FERR #### [address] [address] Creatinine [Mass/Vol] 0.72 mg/dL Normal 0.51-0.95 [facility] Comment on above: Performed By: #### F E, FERR #### [address] [address] Electrolyte Balance 8.0 mEq/L Normal 4.0-15.0 [facility] Comment on above: Performed By: #### F E, FERR #### [address] [address] Globulin 3.5 G/dL Normal 2.7-4.4 [facility] Comment on above: Performed By: #### F E, FERR #### [address] [address] Glucose [Mass/Vol] 90 mg/dL Normal 70-105 [facility] Comment on above: Performed By: #### F E, FERR #### [address] [address] Potassium [Moles/Vol] 4.1 mmol/L Normal 3.5-5.1 [facility] Comment on above: Performed By: #### F E, FERR #### [address] [address] Sodium [Moles/Vol] 141 mmol/L Normal 136-145 [facility] Comment on above: Performed By: #### F E, FERR #### [address] [address] Total Protein 7.1 G/dL Normal 6.4-8.2 [facility] Comment on above: Performed By: #### F E, FERR #### [address] [address] Urea nitrogen [Mass/Vol] 16 mg/dL Normal 7-18 [facility] Comment on above: Performed By: #### F E, FERR #### [address] [address] ALT [Catalytic activity/Vol] 16 U/L Normal 14-59 [facility] Comment on above: Performed By: #### F E, FERR #### [address] [address] FEon 10-07-2024 Iron [Mass/Vol] 55 ug/dL Normal 50-170 [facility] Comment on above: Performed By: #### F E, FERR #### [address] [address] Ezio 10-07-2024 Ferritin [Mass/Vol] 65.0 ng/mL Normal 8.0-252.0 [facility] Comment on above: Performed By: #### F PA Torres #### Margaret [address] [address] LABORATORYOrdered By: SYSTEM SYSTEM on 10-07-2024 Albumin BCP dye [Mass/Vol] 3.6 G/dL Normal 3.5 - 5.0 G/dL AO ADM SS Albumin/Globulin [Mass ratio] 1.0 {ratio} Low 1.1 - 2.5 ratio AO ADM SS ALP [Catalytic activity/Vol] 44 U/L Normal 40 - 135 U/L AO ADM SS AST With P-5'-P [Catalytic activity/Vol] 12 U/L Normal 10 - 40 U/L AO ADM SS Basophils (Bld) [#/Vol] 0.1 103/mcL Normal 0.0 - 0.3 10^3/mcL AO Workflow SS Basophils/100 WBC (Bld) 1.4 % Normal 0.0 - 2.5 % AO Workflow SS Bilirubin [Mass/Vol] 0.4 mg/dL Normal 0.2 - 1 .0 mg/dL AO ADM SS Comment on above: Interpretive Data: U se of this assay is not recommended for patients undergoing treatment with eltrombopag due to the potential for falsely elevated results. Calcium [Mass/Vol] 9.0 mg/dL Normal 8.4 - 10. 2 mg/dL AO ADM SS Chloride [Moles/Vol] 107 mmol/L Normal 98 - 10 7 mmol/L AO ADM SS CO2 [Moles/Vol] 26 mmol/L Normal 22 - 29 mmol/L AO ADM SS Creatinine [Mass/Vol] 0.72 mg/dL Normal 0.51 - 0.95 mg/dL AO ADM SS Electrolyte Balance 8.0 mEq/L Normal 4.0 - 15 .0 mEq/L AO ADM SS Eosinophil, Absolute 0.3 103/mcL Normal 0.0 - 0 .7 10^3/mcL AO Workflow SS Eosinophils/100 WBC (Bld) 5.0 % Normal 0.0 - 6.0 % AO Workflow SS Erythrocyte distribution width (RBC) [Ratio] 13.7 % Normal 11.5 - 15.5 % AO Workflow SS Estimated Glomerular Filtration Rate 104 ml/min/1.73sqm Invalid Interpretation Code AO Chemistry S Comment on above: Interpretive Data: Stages of Chronic Kidney Disease (CKD) Stage Description eGFR(ml/min/1.73 sq.m.) CKD 1 Normal kidney function or >=90 normal kindney function with possible kidney damage (ex. Proteinuria) CKD 2 Kidney damage with mild loss 60-89 of kidney function CKD 3a Mild to moderate loss of kidney 45-59 function CKD 3b Moderate to severe loss of 30-44 of kindey function CKD 4 Severe loss of kidney function 15-29 CKD 5 Kidney failure <15 Note: (go live 2024) the eGFR calculation was updated to the 2020 CKD-EPI creatinine equation without a race factor to calculate the eGFR results. Globulin 3.5 G/dL Normal 2.7 - 4.4 G/dL AO ADM SS Glucose [Mass/Vol] 90 mg/dL Normal 70 - 105 mg/dL AO ADM SS Hematocrit (Bld) [Volume fraction] 38.7 % Normal 34.0 - 46.0 % AO Workflow SS Hemoglobin (Bld) [Mass/Vol] 13.0 G/dL Normal 12.0 - 16.0 G/dL AO Workflow SS Lymphocytes (Bld) [#/Vol] 2.3 103/mcL Normal 0.9 - 4.3 10^3/mcL AO Workflow SS Lymphocytes/100 WBC (Bld) 39.6 % Normal 20.0 - 40.0 % AO Workflow SS MCH (RBC) [Entitic mass] 29.0 pg Normal 27.0 - 33.0 pg AO Workflow SS MCHC 33.5 G/dL Normal 32.0 - 36.0 G/dL AO Workflow SS MCV (RBC) [Entitic vol] 86.5 fL Normal 80.0 - 99.0 fL AO Workflow SS Monocytes (Bld) [#/Vol] 0.5 103/mcL Normal 0.1 - 1.4 10^3/mcL AO Workflow SS Monocytes/100 WBC (Bld) 8.8 % Normal 2.0 - 13.0 % AO Workflow SS Neutrophils (Bld) [#/Vol] 2.6 103/mcL Normal 2.3 - 8.1 10^3/mcL AO Workflow SS Neutrophils/100 WBC (Bld) 45.2 % Low 50.0 - 75.0 % AO Workflow SS Platelet mean volume (Bld) [Entitic vol] 7.7 fL Normal 6.6 - 10.5 fL AO Workflow SS Platelets (Bld) [#/Vol] 207 103/mcL Normal 150 - 450 10^3/mcL AO Workflow SS Potassium [Moles/Vol] 4.1 mmol/L Normal 3.5 - 5.1 mmol/L AO ADM SS Protein [Mass/Vol] 7.1 G/dL Normal 6.4 - 8.2 G/dL AO ADM SS RBC (Bld) [#/Vol] 4.48 106/mcL Normal 4.10 - 5.3 0 10^6/mcL AO Workflow SS Sodium [Moles/Vol] 141 mmol/L Normal 136 - 145 mmol/L AO ADM SS Urea nitrogen [Mass/Vol] 16 mg/dL Normal 7 - 18 mg/dL AO ADM SS Urea nitrogen/Creatinine [Mass ratio] 22 ratio Normal 7 - 27 ratio AO ADM SS WBC (Bld) [#/Vol] 5.7 103/mcL Normal 4.5 - 10.8 10^3/mcL AO Workflow SS Ferritin [Mass/Vol] 65.0 ng/mL Normal 8.0 - 25 2.0 ng/mL AO ADM SS Iron [Mass/Vol] 55 ug/dL Normal 50 - 170 mcg/dL AO ADM SS LABORATORYOrdered By: Abner Norton on 10-07-2024 ALT With P-5'-P [Catalytic activity/Vol] 16 U/L Normal 14 - 59 U/L AO Chemistry S Cholesterol [Mass/Vol] 255 mg/dL High 0 - 2 00 mg/dL AO ADM SS Comment on above: Interpretive Data: C holesterol Reference Interval: Less than 200 Desirable 200-239 Borderline high risk 240 and above High risk Cholesterol in HDL [Mass/Vol] 71 mg/dL High 40 - 60 mg/dL AO ADM SS Cholesterol in LDL [Mass/Vol] 173 mg/dL High 0 - 130 mg/dL AO ADM SS Triglyceride [Mass/Vol] 53 mg/dL Normal 0 - 150 mg/dL AO ADM SS Comment on above: Interpretive Data: T riglyceride Reference Interval: Less than 150 Normal 150-199 Borderline high risk 200-499 High risk 500 or higher Very high risk LIPIDon 10-07-2024 Cholesterol [Mass/Vol] 255 mg/dL High 0-200 [facility] Comment on above: Result Comment: Chol esterol Reference Interval: Less than 200 Desirable 200-239 Borderline high risk 240 and above High risk Performed By: #### F E, FERR #### [place] [address] Cholesterol in HDL [Mass/Vol] 71 mg/dL High 40-60 [facility] Comment on above: Performed By: #### F E, FERR #### [place] [address] Cholesterol in LDL [Mass/Vol] 173 mg/dL High 0-130 [facility] Comment on above: Performed By: #### F E, FERR #### [place] [address] Triglyceride [Mass/Vol] 53 mg/dL Normal 0-150 [facility] Comment on above: Result Comment: Trig lyceride Reference Interval: Less than 150 Normal 150-199 Borderline high risk 200-499 High risk 500 or higher Very high risk Performed By: #### F E, FERR #### [address] [address] .Auto Diffon 03-17-2024 Basophil, Absolute 0.1 10 3/mcL Normal 0.0-0.2 [facility] Comment on above: Performed By: #### A GLADIS, FE, FERR, CBC, ADIFF #### [address] [address] #### B12 #### [address] [address] Basophils/100 WBC (Bld) 1.0 % Normal 0.0-2.5 [facility] Comment on above: Performed By: #### A GLADIS, FE, FERR, CBC, ADIFF #### [address] [address] #### B12 #### [address] [address] Eosinophil, Absolute 0.3 10 3/mcL Normal 0.0-0.7 [facility] Comment on above: Performed By: #### A GLADIS, FE, FERR, CBC, ADIFF #### [address] [address] #### B12 #### [address] [address] Eosinophils/100 WBC (Bld) 3.6 % Normal 0.0-7.0 [facility] Comment on above: Performed By: #### A GLADIS, FE, FERR, CBC, ADIFF #### [address] [address] #### B12 #### [address] [address] Lymphocyte, Absolute 3.1 10 3/mcL Normal 0.9-4.3 [facility] Comment on above: Performed By: #### A GLADIS, FE, FERR, CBC, ADIFF #### [address] [address] #### B12 #### [address] [address] Lymphocytes/100 WBC (Bld) 35.3 % Normal 20.0-40.0 [facility] Comment on above: Performed By: #### A GLADIS, FE, FERR, CBC, ADIFF #### [address] [address] #### B12 #### [address] [address] Monocyte, Absolute 0.7 10 3/mcL Normal 0.1-1.4 [facility] Comment on above: Performed By: #### A GLADIS, FE, FERR, CBC, ADIFF #### [address] [address] #### B12 #### [address] [address] Monocytes/100 WBC (Bld) 7.5 % Normal 2.0-13.0 [facility] Comment on above: Performed By: #### A GLADIS, FE, FERR, CBC, ADIFF #### [address] [address] #### B12 #### [address] [address] Neutrophils/100 WBC (Bld) 52.6 % Normal 50.0-75.0 [facility] Comment on above: Performed By: #### A GLADIS, FE, FERR, CBC, ADIFF #### [address] [address] #### B12 #### [address] [address] .NEUABSon 03-17-2024 Neutrophil, Absolute 4.6 10 3/mcL Normal 2.3-8.1 [facility] Comment on above: Performed By: #### A GLADIS, FE, FERR, CBC, ADIFF #### [address] [address] #### B12 #### [place] [address] B12on 03-17-2024 Cobalamin (Vitamin B12) [Mass/Vol] 1292 pg/mL High 211-911 [facility] Comment on above: Performed By: #### A GLADIS, FE, FERR, CBC, ADIFF #### [address] [address] #### B12 #### [place] [address] CBCon 03-17-2024 Erythrocyte distribution width (RBC) [Ratio] 17.0 % High 11.5-15.5 [facility] Comment on above: Performed By: #### A GLADIS, FE, FERR, CBC, ADIFF #### [address] [address] #### B12 #### [place] [address] Hematocrit (Bld) [Volume fraction] 30.0 % Low 34.0-46.0 [facility] Comment on above: Performed By: #### A GLADIS, FE, FERR, CBC, ADIFF #### [address] [address] #### B12 #### [place] [address] Hgb 9.9 G/dL Low 12.0-16.0 [facility] Comment on above: Performed By: #### A GLADIS, FE, FERR, CBC, ADIFF #### [place] [address] #### B12 #### [address] [address] MCH (RBC) [Entitic mass] 25.9 pg Low 27.0-33.0 [facility] Comment on above: Performed By: #### A GLADIS, FE, FERR, CBC, ADIFF #### [place] [address] #### B12 #### [place] [address] MCHC 33.0 G/dL Normal 32.0-36.0 [facility] Comment on above: Performed By: #### A GLADIS, FE, FERR, CBC, ADIFF #### [place] [address] #### B12 #### [place] [address] MCV (RBC) [Entitic vol] 78.4 fL Low 80.0-99.0 [facility] Comment on above: Performed By: #### A GLADIS, FE, FERR, CBC, ADIFF #### [place] [address] #### B12 #### [place] [address] Platelet 243 10 3/mcL Normal 150-450 [facility] Comment on above: Performed By: #### A GLADIS, FE, FERR, CBC, ADIFF #### [place] [address] #### B12 #### [place] [address] Platelet mean volume (Bld) [Entitic vol] 8.0 fL Normal 6.6-10.5 [facility] Comment on above: Performed By: #### A GLADIS, FE, FERR, CBC, ADIFF #### [place] [address] #### B12 #### [place] [address] RBC 3.82 10 6/mcL Low 4.10-5.30 [facility] Comment on above: Performed By: #### A GLADIS, FE, FERR, CBC, ADIFF #### [place] [address] #### B12 #### [place] [address] WBC 8.8 10 3/mcL Normal 4.5-10.8 [facility] Comment on above: Performed By: #### A GLADIS, FE, FERR, CBC, ADIFF #### [place] [address] #### B12 #### [place] [address] FEon 03-17-2024 Iron [Mass/Vol] 29 ug/dL Low 50-170 [facility] Comment on above: Performed By: #### A GLADIS, FE, FERR, CBC, ADIFF #### [place] [address] #### B12 #### [place] [address] Ezio 03-17-2024 Ferritin [Mass/Vol] 11.0 ng/mL Normal 8.0-252.0 [facility] Comment on above: Performed By: #### A GLADIS, FE, FERR, CBC, ADIFF #### [place] [address] #### B12 #### [place] [address] LABORATORYOrdered By: SYSTEM SYSTEM on 03-17-2024 Basophils (Bld) [#/Vol] 0.1 103/mcL Normal 0.0 - 0.2 10^3/mcL AO Workflow SS Basophils/100 WBC (Bld) 1.0 % Normal 0.0 - 2.5 % AO Workflow SS Cobalamin (Vitamin B12) [Mass/Vol] 1292 pg/mL High 211 - 911 pg/mL AH ADM SS Eosinophil, Absolute 0.3 103/mcL Normal 0.0 - 0 .7 10^3/mcL AO Workflow SS Eosinophils/100 WBC (Bld) 3.6 % Normal 0.0 - 7.0 % AO Workflow SS Erythrocyte distribution width (RBC) [Ratio] 17.0 % High 11.5 - 15.5 % AO Workflow SS Ferritin [Mass/Vol] 11.0 ng/mL Normal 8.0 - 25 2.0 ng/mL AO ADM SS Hematocrit (Bld) [Volume fraction] 30.0 % Low 34.0 - 46.0 % AO Workflow SS Hemoglobin (Bld) [Mass/Vol] 9.9 G/dL Low 12.0 - 16.0 G/dL AO Workflow SS Iron [Mass/Vol] 29 ug/dL Low 50 - 170 mcg/dL AO ADM SS Lymphocytes (Bld) [#/Vol] 3.1 103/mcL Normal 0.9 - 4.3 10^3/mcL AO Workflow SS Lymphocytes/100 WBC (Bld) 35.3 % Normal 20.0 - 40.0 % AO Workflow SS MCH (RBC) [Entitic mass] 25.9 pg Low 27.0 - 33.0 pg AO Workflow SS MCHC 33.0 G/dL Normal 32.0 - 36.0 G/dL AO Workflow SS MCV (RBC) [Entitic vol] 78.4 fL Low 80.0 - 99.0 fL AO Workflow SS Monocytes (Bld) [#/Vol] 0.7 103/mcL Normal 0.1 - 1.4 10^3/mcL AO Workflow SS Monocytes/100 WBC (Bld) 7.5 % Normal 2.0 - 13.0 % AO Workflow SS Neutrophils (Bld) [#/Vol] 4.6 103/mcL Normal 2.3 - 8.1 10^3/mcL AO Workflow SS Neutrophils/100 WBC (Bld) 52.6 % Normal 50.0 - 75.0 % AO Workflow SS Platelet mean volume (Bld) [Entitic vol] 8.0 fL Normal 6.6 - 10.5 fL AO Workflow SS Platelets (Bld) [#/Vol] 243 103/mcL Normal 150 - 450 10^3/mcL AO Workflow SS RBC (Bld) [#/Vol] 3.82 106/mcL Low 4.10 - 5.3 0 10^6/mcL AO Workflow SS WBC (Bld) [#/Vol] 8.8 103/mcL Normal 4.5 - 10.8 10^3/mcL AO Workflow SS .GFRon 03-11-2024 GFR 104 ml/min/1.73sqm Normal [facility] Comment on above: Result Comment: GFR Population mean for , Non- Americans Ages 20-29 = 116 mL/min/1.73 sq.m. Ages 30-39 = 107 mL/min/1.73 sq.m. Ages 40-49 = 99 mL/min/1.73 sq.m. Ages 50-59 = 93 mL/min/1.73 sq.m. Ages 60-69 = 85 mL/min/1.73 sq.m. Ages 70+ = 75 mL/min/1.73 sq.m. Chronic Kidney Disease: Less than 60 mL/min/1.73 square meters End Stage Renal Disease: Less than 15 mL/min/1.73 square meters Performed By: #### F E, FERR #### [address] [address] GFR Non- 86 ml/min/1.73sqm Normal [facility] Comment on above: Result Comment: GFR Population mean for , Non- Americans Ages 20-29 = 116 mL/min/1.73 sq.m. Ages 30-39 = 107 mL/min/1.73 sq.m. Ages 40-49 = 99 mL/min/1.73 sq.m. Ages 50-59 = 93 mL/min/1.73 sq.m. Ages 60-69 = 85 mL/min/1.73 sq.m. Ages 70+ = 75 mL/min/1.73 sq.m. Chronic Kidney Disease: Less than 60 mL/min/1.73 square meters End Stage Renal Disease: Less than 15 mL/min/1.73 square meters Performed By: #### F E, FERR #### [address] [address] A1Con 03-11-2024 Glucose [Mass/Vol] 120 mg/dL Normal [facility] Comment on above: Result Comment: Gena mated Average Glucose calculated by equation ((28.7xA1C)-46.7) Estimated average glucose (eAG) is a calculated value from Hemoglobin A1C and is open claims representative of the average blood glucose level in the last 2-3 month period. Normal range: less than 114 mg/dL Performed By: #### F E, FERR #### [address] [address] HbA1c (Bld) [Mass fraction] 5.8 % Normal 4.3-6.4 [facility] Comment on above: Performed By: #### F E, FERR #### [address] [address] CMPon 03-11-2024 Albumin Level 3.1 G/dL Low 3.5-5.0 [facility] Comment on above: Performed By: #### F E, FERR #### [place] [id number] Albumin/Globulin [Mass ratio] 0.9 {ratio} Low 1.1-2.5 [facility] Comment on above: Performed By: #### F E, FERR #### [place] [id number] ALP [Catalytic activity/Vol] 51 U/L Normal 40-135 [facility] Comment on above: Performed By: #### E, FERR #### [address] [address] ALT [Catalytic activity/Vol] 37 U/L Normal 14-59 [facility] Comment on above: Performed By: #### F E, FERR #### [address] [id number] AST [Catalytic activity/Vol] 27 U/L Normal 10-40 [facility] Comment on above: Performed By: #### F E, FERR #### [place] [id number] Bili Total 0.3 mg/dL Normal 0.2-1.0 [facility] Comment on above: Result Comment: Use of this assay is not recommended for patients undergoing treatment with eltrombopag due to the potential for falsely elevated results. Performed By: #### F E, FERR #### [address] [address] BUN/Creatinine Ratio 16 ratio Normal 7-27 [facility] Comment on above: Performed By: #### F E, FERR #### [place] [address] Calcium [Mass/Vol] 8.8 mg/dL Normal 8.4-10.2 [facility] Comment on above: Performed By: #### F E, FERR #### [place] [address] Chloride [Moles/Vol] 106 mmol/L Normal 98-107 [facility] Comment on above: Performed By: #### F E, FERR #### [place] [address] CO2 [Moles/Vol] 26 mmol/L Normal 22-29 [facility] Comment on above: Performed By: #### F E, FERR #### [place] [address] Creatinine [Mass/Vol] 0.73 mg/dL Normal 0.55-1.02 [facility] Comment on above: Result Comment: Test ing performed on Siemens Dimension EXL analyzer using a modified kinetic Kieran technique. Performed By: #### F E, FERR #### [place] [address] Electrolyte Balance 10.0 mEq/L Normal 4.0-15.0 [facility] Comment on above: Performed By: #### F E, FERR #### [place] [address] Globulin 3.4 G/dL Normal [facility] Comment on above: Performed By: #### F E, FERR #### [place] [address] Glucose [Mass/Vol] 90 mg/dL Normal 70-105 [facility] Comment on above: Performed By: #### F E, FERR #### [address] [address] Potassium [Moles/Vol] 4.6 mmol/L Normal 3.5-5.1 [facility] Comment on above: Performed By: #### F E, FERR #### [address] [address] Sodium [Moles/Vol] 142 mmol/L Normal 136-145 [facility] Comment on above: Performed By: #### F E, FERR #### [address] [address] Total Protein 6.5 G/dL Normal 6.4-8.2 [facility] Comment on above: Performed By: #### F E, FERR #### [address] [address] Urea nitrogen [Mass/Vol] 12 mg/dL Normal 7-18 [facility] Comment on above: Performed By: #### F E, FERR #### [address] [address] LABORATORYOrdered By: SYSTEM SYSTEM on 03-11-2024 Albumin BCP dye [Mass/Vol] 3.1 G/dL Low 3.5 - 5.0 G/dL AO ADM SS Albumin/Globulin [Mass ratio] 0.9 {ratio} Low 1.1 - 2.5 ratio AO ADM SS ALP [Catalytic activity/Vol] 51 U/L Normal 40 - 135 U/L AO ADM SS ALT With P-5'-P [Catalytic activity/Vol] 37 U/L Normal 14 - 59 U/L AO ADM SS AST With P-5'-P [Catalytic activity/Vol] 27 U/L Normal 10 - 40 U/L AO ADM SS Bilirubin [Mass/Vol] 0.3 mg/dL Normal 0.2 - 1 .0 mg/dL AO ADM SS Comment on above: Interpretive Data: U se of this assay is not recommended for patients undergoing treatment with eltrombopag due to the potential for falsely elevated results. Calcium [Mass/Vol] 8.8 mg/dL Normal 8.4 - 10. 2 mg/dL AO ADM SS Chloride [Moles/Vol] 106 mmol/L Normal 98 - 10 7 mmol/L AO ADM SS CO2 [Moles/Vol] 26 mmol/L Normal 22 - 29 mmol/L AO ADM SS Creatinine [Mass/Vol] 0.73 mg/dL Normal 0.55 - 1.02 mg/dL AO ADM SS Comment on above: Interpretive Data: T esting performed on Siemens Dimension EXL analyzer using a modified kinetic Kieran technique. Electrolyte Balance 10.0 mEq/L Normal 4.0 - 15 .0 mEq/L AO ADM SS GFR/1.73 sq M.predicted among blacks MDRD (S/P/Bld) [Vol rate/Area] 104 ml/min/1.73sqm Invalid Interpretation Code AO Chemistry S Comment on above: Interpretive Data: GFR Population mean for , Non- Americans Ages 20-29 = 116 mL/min/1.73 sq.m. Ages 30-39 = 107 mL/min/1.73 sq.m. Ages 40-49 = 99 mL/min/1.73 sq.m. Ages 50-59 = 93 mL/min/1.73 sq.m. Ages 60-69 = 85 mL/min/1.73 sq.m. Ages 70+ = 75 mL/min/1.73 sq.m. Chronic Kidney Disease: Less than 60 mL/min/1.73 square meters End Stage Renal Disease: Less than 15 mL/min/1.73 square meters GFR/1.73 sq M.predicted among non-blacks MDRD (S/P/Bld) [Vol rate/Area] 86 ml/min/1.73sqm Invalid Interpretation Code AO Chemistry S Comment on above: Interpretive Data: GFR Population mean for , Non- Americans Ages 20-29 = 116 mL/min/1.73 sq.m. Ages 30-39 = 107 mL/min/1.73 sq.m. Ages 40-49 = 99 mL/min/1.73 sq.m. Ages 50-59 = 93 mL/min/1.73 sq.m. Ages 60-69 = 85 mL/min/1.73 sq.m. Ages 70+ = 75 mL/min/1.73 sq.m. Chronic Kidney Disease: Less than 60 mL/min/1.73 square meters End Stage Renal Disease: Less than 15 mL/min/1.73 square meters Globulin 3.4 G/dL Invalid Interpretation Code AO ADM SS Glucose [Mass/Vol] 90 mg/dL Normal 70 - 105 mg/dL AO ADM SS Glucose [Mass/Vol] 120 mg/dL Invalid Interpretation Code AO Chemistry S Comment on above: Interpretive Data: E stimated average glucose (eAG) is a calculated value from Hemoglobin A1C and is open claims representative of the average blood glucose level in the last 2-3 month period. Normal range: less than 114 mg/dL HbA1c (Bld) [Mass fraction] 5.8 % Normal 4.3 - 6.4 % AO ADM SS Potassium [Moles/Vol] 4.6 mmol/L Normal 3.5 - 5.1 mmol/L AO ADM SS Protein [Mass/Vol] 6.5 G/dL Normal 6.4 - 8.2 G/dL AO ADM SS Sodium [Moles/Vol] 142 mmol/L Normal 136 - 145 mmol/L AO ADM SS Urea nitrogen [Mass/Vol] 12 mg/dL Normal 7 - 18 mg/dL AO ADM SS Urea nitrogen/Creatinine [Mass ratio] 16 ratio Normal 7 - 27 ratio AO ADM SS LABORATORYOrdered By: Wan Cardoso on 03-11-2024 Cholesterol [Mass/Vol] 257 mg/dL High 0 - 2 00 mg/dL AO ADM SS Comment on above: Interpretive Data: C holesterol Reference Interval: Less than 200 Desirable 200-239 Borderline high risk 240 and above High risk Cholesterol in HDL [Mass/Vol] 88 mg/dL High 40 - 60 mg/dL AO ADM SS Cholesterol in LDL [Mass/Vol] 157 mg/dL High 0 - 130 mg/dL AO ADM SS Triglyceride [Mass/Vol] 58 mg/dL Normal 0 - 150 mg/dL AO ADM SS Comment on above: Interpretive Data: T riglyceride Reference Interval: Less than 150 Normal 150-199 Borderline high risk 200-499 High risk 500 or higher Very high risk LIPIDon 03-11-2024 Cholesterol [Mass/Vol] 257 mg/dL High 0-200 [facility] Comment on above: Result Comment: Chol esterol Reference Interval: Less than 200 Desirable 200-239 Borderline high risk 240 and above High risk Performed By: #### F E, FERR #### [address] [address] Cholesterol in HDL [Mass/Vol] 88 mg/dL High 40-60 [facility] Comment on above: Performed By: #### F E, FERR #### [place] [id number] [place], [place] [address] Cholesterol in LDL [Mass/Vol] 157 mg/dL High 0-130 [facility] Comment on above: Performed By: #### F E, FERR #### [place] [id number] [place], [place] [address] Triglyceride [Mass/Vol] 58 mg/dL Normal 0-150 [facility] Comment on above: Result Comment: Trig lyceride Reference Interval: Less than 150 Normal 150-199 Borderline high risk 200-499 High risk 500 or higher Very high risk Performed By: #### F E, FERR #### [place] [id number] [place], [place] [address] Absolute lymphocyte counton 10-17-2022 Lymphocytes Auto (Unsp spec) [#/Vol] 2.16 10*3/uL 0.83-4.51 [facility] Basophil percentageon 2022 Basophils/100 WBC (Bld) 1.1 % 0-1 [facility] Bilirubin [Mass/Vol] 0.30 mg/dL 0.20-1.00 [facility] Comment on above: For patients on eltr ombopag therapy, use of Dimension [place] TBIL is not recommended. Chloride [Moles/Vol] 108 mmol/L 98-107 [facility] Cholesterol [Mass/Vol] 210 mg/dL <200 [facility] Comment on above: <200 mg/dL Desirable 200-240 mg/dL Borderline >240 mg/dL High Risk Eosinophils/100 WBC (Bld) 3.4 % 0-5 [facility] Glucose [Mass/Vol] 84 mg/dL 74-106 [facility] Neutrophils (Bld) [#/Vol] 3.5 10*3/uL 2.0-7.7 [facility] Neutrophils/100 WBC (Bld) 54.0 % 47-70 [facility] Potassium [Moles/Vol] 4.2 mmol/L 3.5-5.1 [facility] Protein [Mass/Vol] 7.2 g/dL 6.4-8.2 [facility] Sodium [Moles/Vol] 137 mmol/L 136-145 [facility] Triglyceride [Mass/Vol] 53 mg/dL <199 [facility] Comment on above: The drugs N-Acetylcy steine and Metamizole may falsely depress this assay.Serum Triglycerides Reference Interval Normal <150 mg/dL Borderline high 150 - 199 mg/dL High 200 - 499 mg/dL Very High > or = 500 mg/dL WBC (Bld) [#/Vol] 6.4 10*3/uL 4.4-11.0 [facility] Blood erythrocytes count (nu mber/volume)on 10-17-2022 RBC (Bld) [#/Vol] 4.19 10*6/uL 4.2-5.[address] [facility] Blood hemoglobin measurement (mass/volume)on 10-17-2022 Hemoglobin (Bld) [Mass/Vol] 11.9 g/dL 12.0-15.0 [facility] Blood lymphocytes/100 leukoc yteson 10-17-2022 Lymphocytes/100 WBC (Bld) 33.6 % 19-41 [facility] Blood monocytes/100 leukocyt eson 10-17-2022 Monocytes/100 WBC (Bld) 7.6 % 0-10 [facility] Blood platelet mean volumeon 10-17-2022 Platelet mean volume (Bld) [Entitic vol] 11.2 fL 6.2-12.0 [facility] Determination of erythrocyte mean corpuscular volume (MCV)on 10-17-2022 MCV (RBC) [Entitic vol] 88.3 fL 81-99 [facility] Hematocrit Auto (Bld) [Volum e fraction]on 10-17-2022 Hematocrit (Bld) [Volume fraction] 37.0 % 37-47 [facility] Laboratory - Chemistry and C hemistry - challengeon 10-17-2022 ALP [Catalytic activity/Vol] 50 U/L 45-117 [facility] ALT [Catalytic activity/Vol] 17 U/L 13-56 [facility] CO2 [Moles/Vol] 24.0 mmol/L 21.0-32.0 [facility] Cobalamin (Vitamin B12) [Mass/Vol] 550 pg/mL 211-911 [facility] Globulin (S) [Mass/Vol] 3.8 g/dL 2.2-4.2 [facility] Urea nitrogen/Creatinine [Mass ratio] 14.6 mg/mg 10-20 [facility] Laboratory - Hematology and Cell countson 10-17-2022 Erythrocyte distribution width (RBC) [Entitic vol] 48.9 fL 35.1-43.9 [facility] Erythrocyte distribution width (RBC) [Ratio] 15.1 % 11.6-14.6 [facility] Immature granulocytes/100 WBC (Bld) 0.300 % 0.0-0.9 [facility] Comment on above: IG% - Immature Granu locytes (promyelocytes, myelocytes and metamyelocytes) > 1% indicates that a LEFT SHIFT is Present. MCH (RBC) [Entitic mass] 28.4 pg 27.0-32.0 [facility] Nucleated RBC/100 WBC (Bld) [Ratio] 0 % 0-5 [facility] MCHC Auto (RBC) [Mass/Vol]on 10-17-2022 MCHC (RBC) [Mass/Vol] 32.2 g/dL 32-36 [facility] No Panel Informationon 10-17 Estimated GFR (MDRD) Amer 97 mL/min >60 [facility] Comment on above: GFR Calc Estimated GFR (MDRD) Non-Af Amer 80 mL/min >60 [facility] Comment on above: Non- GFR Calc Insulin Level 4.3 mU/L 2.6-37.6 [facility] Thyroid Stimulating Hormone (TSH) 1.12 uIU/mL 0.358-3.74 [facility] Vitamin D 25-Hydroxy 35.3 ng/mL [facility] Comment on above: Vitamin D 25(OH) Sta tus Range Deficiency <20 ng/mL (50nmol/L) Insufficiency 20 - 30 ng/mL (50 - 75 nmol/L) Sufficiency 30 - 100 ng/mL (75 - 250 nmol/L) Toxicity >100 ng/mL (>250 nmol/L) Platelets bldon 10-17-2022 Platelets (Bld) [#/Vol] 248 10*3/uL 150-450 [facility] Serum or plasma albumin sadaf urement (mass/volume)on 10-17-2022 Albumin [Mass/Vol] 3.4 g/dL 3.2-5.0 [facility] Serum or plasma albumin/glob ulin mass ratioon 10-17-2022 Albumin/Globulin [Mass ratio] 0.9 {ratio} 0.9-2.4 [facility] Serum or plasma calcium sadaf urement (mass/volume)on 10-17-2022 Calcium [Mass/Vol] 9.1 mg/dL 8.5-10.1 [facility] Serum or plasma cholesterol in HDL measurement (mass/volume)on 10-17-2022 Cholesterol in HDL [Mass/Vol] 58 mg/dL >40 [facility] Comment on above: The drugs N-Acetylcy steine and Metamizole may falsely depress this assay. Reference Range HDL <40 mg/dL Low HDL Cholesterol HDL >or= 60 mg/dL High HDL Cholesterol Serum or plasma cholesterol in VLDL measurement (mass/volume)on 10-17-2022 Cholesterol in VLDL [Mass/Vol] 11 mg/dL 5-40 [facility] Serum or plasma creatinine m easurement (mass/volume)on 10-17-2022 Creatinine [Mass/Vol] 0.82 mg/dL 0.55-1.02 [facility] Comment on above: The validity of the calculated GFR & GFRAA in patients over 70 years has not been determined. Clinical correlation is essential. Serum or plasma folate measu rement (mass/volume)on 10-17-2022 Folate [Mass/Vol] 10.50 ng/mL 3.1-55.4 [facility] Serum or plasma low density lipoprotein (LDL) cholesterol measurement (mass/volume)on 10-17-2022 Cholesterol in LDL [Mass/Vol] 141 mg/dL 0-130 [facility] Serum or plasma urea nitroge n measurement (mass/volume)on 10-17-2022 Urea nitrogen [Mass/Vol] 12 mg/dL 7-18 [facility] Thin prep Papanicolaou smear with manual screeningon 10-17-2022 Thin prep Papanicolaou smear with manual screening 11 U/L 15-37 [facility] Thin prep Papanicolaou smear with manual screening 5 5-15 [facility] Whole blood hemoglobin A1c/t otal hemoglobin ratio (mass fraction)on 10-17-2022 HbA1c (Bld) [Mass fraction] 5.3 % 3.8-5.6 [facility] Comment on above: Normal < 5.7 % Predi abetic 5.7 - 6.4 % Diabetic >or= 6.5 % Please note range changes. Comp Metabolic Panelon 01-16 Albumin [Mass/Vol] 4.0 g/dL Normal 3.5-5.0 [facility] Comment on above: Performed By: #### C MP #### [address] [place] [address] ALP [Catalytic activity/Vol] 65 U/L Normal 35-104 [facility] Comment on above: Performed By: #### C MP #### [address] [place] [address] ALT [Catalytic activity/Vol] 19 U/L Normal 0-34 [facility] Comment on above: Performed By: #### C MP #### [address] [address] AST [Catalytic activity/Vol] 19 U/L Normal 0-31 [facility] Comment on above: Performed By: #### C MP #### [address] [place] [address] Bili,Total 0.4 mg/dL Normal [facility] Comment on above: Performed By: #### C MP #### [address] [place] [address] Calcium [Mass/Vol] 9.5 mg/dL Normal 7.6-11.0 [facility] Comment on above: Performed By: #### C MP #### [address] [place] [address] Chloride [Moles/Vol] 103 mmol/L Normal 96-108 [facility] Comment on above: Performed By: #### C MP #### [address] [address] CO2 [Moles/Vol] 25.7 mmol/L Normal 22.0-29.0 [facility] Comment on above: Performed By: #### C MP #### [address] [address] Creatinine [Mass/Vol] 0.71 mg/dL Normal 0.50-1.00 [facility] Comment on above: Performed By: #### C MP #### [address] [address] Glucose [Mass/Vol] 96 mg/dL Normal 70-99 [facility] Comment on above: Result Comment: Crit lynn for Diagnosis of Diabetes: Fasting Specimen (no caloric intake for at least 8 hours): <100 mg/dL Normal 100-125 mg/dL Increased risk for Diabetes >125 mg/dL Diagnostic for Diabetes Random Glucose (any time of day without regard to last meal): > or = 200 plus Classic Symptoms of Diabetes Performed By: #### C MP #### [address] [address] Potassium [Moles/Vol] 4.3 mmol/L Normal 3.3-5.1 [facility] Comment on above: Performed By: #### C MP #### [address] [address] Protein [Mass/Vol] 7.5 g/dL Normal 5.9-8.4 [facility] Comment on above: Performed By: #### C MP #### [address] [address] Sodium [Moles/Vol] 139 mmol/L Normal 133-145 [facility] Comment on above: Performed By: #### C MP #### [address] [address] Urea nitrogen [Mass/Vol] 9 mg/dL Normal 4-19 [facility] Comment on above: Performed By: #### C MP #### [address] [address] Complete Blood Counton 01-16 Differential Complete Automated Normal [facility] Comment on above: Performed By: #### C BC #### [address] [address] Basophils/100 WBC (Bld) 1.10 % High 0.00-1.00 [facility] Comment on above: Performed By: #### C BC #### [address] [address] Eosinophils/100 WBC (Bld) 3.60 % High 0.00-3.00 [facility] Comment on above: Performed By: #### C BC #### [address] [address] Erythrocyte distribution width (RBC) [Ratio] 13.4 % Normal 0.0-14.4 [facility] Comment on above: Performed By: #### C BC #### [address] [address] Hematocrit (Bld) [Volume fraction] 40.4 % Normal 36.0-44.0 [facility] Comment on above: Performed By: #### C BC #### [address] [address] Hemoglobin (Bld) [Mass/Vol] 13.1 g/dL Normal 12.0-15.0 [facility] Comment on above: Performed By: #### C BC #### [address] [address] Immature granulocytes/100 WBC (Bld) 0.40 % Normal [facility] Comment on above: Result Comment: Lizbeth ture Granulocyte Percent includes promyelocytes, myelocytes, and metamyelocytes. IG% > 1.0 indicates a left shift is present. With automated differentials, bands are included in the neutrophil count and not in the Immature Granulocyte Percent. Performed By: #### C BC #### [address] [address] Lymphocytes/100 WBC (Bld) 33.5 % Normal 24.0-44.0 [facility] Comment on above: Performed By: #### C BC #### [address] [address] MCH (RBC) [Entitic mass] 27.9 pg Normal 26.0-34.0 [facility] Comment on above: Performed By: #### C BC #### [address] [address] MCHC 32.4 % Normal 31.0-37.0 [facility] Comment on above: Performed By: #### C BC #### [address] [address] MCV (RBC) [Entitic vol] 86.1 fL Normal 80.0-100.0 [facility] Comment on above: Performed By: #### C BC #### [address] [address] Monocytes/100 WBC (Bld) 6.40 % High 3.00-6.00 [facility] Comment on above: Performed By: #### C BC #### [address] [address] Neutrophils (Bld) [#/Vol] 4.0 10*3/uL Normal 2.0-7.2 [facility] Comment on above: Performed By: #### C BC #### [address] [address] Neutrophils/100 WBC (Bld) 55.0 % Normal 35.0-66.0 [facility] Comment on above: Performed By: #### C BC #### [address] [address] Nucleated RBC/100 WBC (Bld) [Ratio] 0.0 % Normal -1.0-0.0 [facility] Comment on above: Performed By: #### C BC #### [address] [phone] Platelet mean volume (Bld) [Entitic vol] 10.6 fL Normal [facility] Comment on above: Result Comment: MPV is platelet range and age dependent Performed By: #### C BC #### [address] [address] Platelets (Bld) [#/Vol] 249 10*3/uL Normal 150-450 [facility] Comment on above: Performed By: #### C BC #### [address] [address] RBC 4.69 10E12/L Normal 4.00-4.90 [facility] Comment on above: Performed By: #### C BC #### [address] [address] WBC (Bld) [#/Vol] 7.3 10*3/uL Normal 4.5-11.0 [facility] Comment on above: Performed By: #### C BC #### [address] [id number] Hemoglobin A1con 01-16-2022 HbA1c (Bld) [Mass fraction] 5.7 % High 0.0-5.6 [facility] Comment on above: Result Comment: Refe rence Interval: <5.7% 5.7-6.4% Prediabetes > or = 6.5% Diabetes Targets for diabetes management: Type I <7.5% Type II <7.0% Performed By: #### H BA1C #### [address] [address] Insulinon 01-16-2022 Insulin 10 uIU/mL Normal 0-22 [facility] Comment on above: Result Comment: Post 4-12 hour Fast: 0-8 years: 0-17 uIU/mL >8 years: 0- 22 uIU/mL 2-hour Post Meal: 10-33 uIU/mL 2-hour Post Glucose Testin-66 uIU/mL Performed By: #### I NSUL #### [place] [address] Lipid Panelon 01-16-2022 Cholesterol [Mass/Vol] 232 mg/dL High 0-199 [facility] Comment on above: Result Comment: Acce ptable (mg/dL): <200 Borderline-High (mg/dL): 200-239 High (mg/dL): > or = 240 Recommendations of the NCEP Adult Treatment Panel for the risk cut-off thresholds for the [place] Population. Performed By: #### L IPID #### [place] [address] Cholesterol in HDL [Mass/Vol] 65 mg/dL Normal [facility] Comment on above: Result Comment: Low (mg/dL): <50 Borderline-Low (mg/dL): 50-60 Acceptable (mg/dL): >60 Performed By: #### L IPID #### [address] [address] Non-HDL Cholesterol 167 mg/dL High 0-129 [facility] Comment on above: Performed By: #### L IPID #### [address] [id number] Triglyceride [Mass/Vol] 115 mg/dL Normal 0-149 [facility] Comment on above: Performed By: #### L IPID #### [facility] [address] [address] Cholesterol in LDL [Mass/Vol] 144 mg/dL High 0-129 [facility] Comment on above: Performed By: #### L IPID #### [address] [address] TSHon 01-16-2022 TSH 1.820 uIU/mL Normal 0.300-4.200 [facility] Comment on above: Performed By: #### T SH #### [address] [address] .Auto Diffon 11-26-2021 Basophil, Absolute 0.1 10 3/mcL Normal 0.0-0.2 [facility] ([place]) Comment on above: Performed By: #### L IPID, CMP, GFR #### [address] [address] Basophils/100 WBC (Bld) 1.1 % Normal 0.0-2.5 [facility] ([place]) Comment on above: Performed By: #### L IPID, CMP, GFR #### [address] [address] Eosinophil, Absolute 0.2 10 3/mcL Normal 0.0-0.4 [facility] ([place]) Comment on above: Performed By: #### L IPID, CMP, GFR #### [address] [address] Eosinophils/100 WBC (Bld) 2.9 % Normal 0.0-7.0 [facility] ([place]) Comment on above: Performed By: #### L IPID, CMP, GFR #### [address] [address] Lymphocyte, Absolute 2.5 10 3/mcL Normal 0.8-3.9 [facility] ([place]) Comment on above: Performed By: #### L IPID, CMP, GFR #### [address] [address] Lymphocytes/100 WBC (Bld) 30.0 % Normal 10.0-50.0 [facility] ([place]) Comment on above: Performed By: #### L IPID, CMP, GFR #### [address] [address] Monocyte, Absolute 0.6 10 3/mcL Normal 0.2-1.0 [facility] ([place]) Comment on above: Performed By: #### L IPID, CMP, GFR #### [address] [address] Monocytes/100 WBC (Bld) 6.7 % Normal 1.7-13.0 [facility] ([place]) Comment on above: Performed By: #### L IPID, CMP, GFR #### [address] [address] Neutrophils/100 WBC (Bld) 59.3 % Normal 37.0-80.0 [facility] ([place]) Comment on above: Performed By: #### L IPID, CMP, GFR #### [address] [address] .GFRon 11-26-2021 GFR 99 ml/min/1.73sqm Normal [facility] ([place]) Comment on above: Result Comment: GFR Population mean for , Non- Americans Ages 20-29 = 116 mL/min/1.73 sq.m. Ages 30-39 = 107 mL/min/1.73 sq.m. Ages 40-49 = 99 mL/min/1.73 sq.m. Ages 50-59 = 93 mL/min/1.73 sq.m. Ages 60-69 = 85 mL/min/1.73 sq.m. Ages 70+ = 75 mL/min/1.73 sq.m. Chronic Kidney Disease: Less than 60 mL/min/1.73 square meters End Stage Renal Disease: Less than 15 mL/min/1.73 square meters Performed By: #### L IPID, CMP, GFR #### [address] [address] GFR Non- 81 ml/min/1.73sqm Normal [facility] ([place]) Comment on above: Result Comment: GFR Population mean for , Non- Americans Ages 20-29 = 116 mL/min/1.73 sq.m. Ages 30-39 = 107 mL/min/1.73 sq.m. Ages 40-49 = 99 mL/min/1.73 sq.m. Ages 50-59 = 93 mL/min/1.73 sq.m. Ages 60-69 = 85 mL/min/1.73 sq.m. Ages 70+ = 75 mL/min/1.73 sq.m. Chronic Kidney Disease: Less than 60 mL/min/1.73 square meters End Stage Renal Disease: Less than 15 mL/min/1.73 square meters Performed By: #### L IPID, CMP, GFR #### [address] [address] .NEUABSon 11-26-2021 Neutrophil, Absolute 4.9 10 3/mcL Normal 2.9-6.2 [facility] ([place]) Comment on above: Performed By: #### L IPID, CMP, GFR #### [address] [address] CBCon 11-26-2021 Erythrocyte distribution width (RBC) [Ratio] 13.8 % Normal 11.5-14.5 [facility] ([place] Comment on above: Performed By: #### L IPID, CMP, GFR #### [address] [address] Hematocrit (Bld) [Volume fraction] 41.6 % Normal 37.0-47.0 [facility] ([place]) Comment on above: Performed By: #### L IPID, CMP, GFR #### [address] [address] Hgb 13.6 G/dL Normal 12.0-16.0 [facility] ([place]) Comment on above: Performed By: #### L IPID, CMP, GFR #### [address] [address] MCH (RBC) [Entitic mass] 28.1 pg Normal 27.0-31.2 [facility] ([place]) Comment on above: Performed By: #### L IPID, CMP, GFR #### [address] [address] MCHC 32.7 G/dL Low 33.0-37.0 [facility] ([place] Comment on above: Performed By: #### L IPID, CMP, GFR #### [address] [address] MCV (RBC) [Entitic vol] 85.9 fL Normal 80.0-94.0 [facility] ([place]) Comment on above: Performed By: #### L IPID, CMP, GFR #### [address] [address] Platelet 261 10 3/mcL Normal 130-400 [facility] ([place]) Comment on above: Performed By: #### L IPID, CMP, GFR #### [address] [address] Platelet mean volume (Bld) [Entitic vol] 8.5 fL Normal 7.4-10.4 [facility] ([place]) Comment on above: Performed By: #### L IPID, CMP, GFR #### [address] [address] RBC 4.84 10 6/mcL Normal 4.20-5.40 [facility] ([place]) Comment on above: Performed By: #### L IPID, CMP, GFR #### [address] [address] WBC 8.2 10 3/mcL Normal 4.6-10.8 [facility] ([place]) Comment on above: Performed By: #### L IPID, CMP, GFR #### [address] [address] CMPon 11-26-2021 Albumin Level 3.7 G/dL Normal 3.5-5.0 [facility] ([place]) Comment on above: Performed By: #### L IPID, CMP, GFR #### [address] [address] Albumin/Globulin [Mass ratio] 1.1 {ratio} Normal 1.1-2.5 [facility] ([place]) Comment on above: Performed By: #### L IPID, CMP, GFR #### [address] [address] ALP [Catalytic activity/Vol] 68 U/L Normal 40-135 [facility] ([place]) Comment on above: Performed By: #### L IPID, CMP, GFR #### [address] [address] ALT [Catalytic activity/Vol] 21 U/L Normal 14-59 [facility] ([place]) Comment on above: Performed By: #### L IPID, CMP, GFR #### [address] [address] AST [Catalytic activity/Vol] 17 U/L Normal 10-40 [facility] ([place] Comment on above: Performed By: #### L IPID, CMP, GFR #### [address] [address] Bili Total 0.3 mg/dL Normal 0.2-1.0 [facility] ([place]) Comment on above: Result Comment: Use of this assay is not recommended for patients undergoing treatment with eltrombopag due to the potential for falsely elevated results. Performed By: #### L IPID, CMP, GFR #### [address] [address] BUN/Creatinine Ratio 14 ratio Normal 7-27 [facility] ([place]) Comment on above: Performed By: #### L IPID, CMP, GFR #### [address] [address] Calcium [Mass/Vol] 8.9 mg/dL Normal 8.4-10.2 [facility] ([place]) Comment on above: Performed By: #### L IPID, CMP, GFR #### [address] [address] Chloride [Moles/Vol] 103 mmol/L Normal 98-107 [facility] ([place]) Comment on above: Performed By: #### L IPID, CMP, GFR #### [address] [address] CO2 [Moles/Vol] 29 mmol/L Normal 22-29 [facility] ([place]) Comment on above: Performed By: #### L IPID, CMP, GFR #### [address] [address] Creatinine [Mass/Vol] 0.77 mg/dL Normal 0.55-1.02 [facility] ([place]) Comment on above: Performed By: #### L IPID, CMP, GFR #### [place] [id number] Electrolyte Balance 8.0 mEq/L Normal 4.0-15.0 [facility] ([place]) Comment on above: Performed By: #### L IPID, CMP, GFR #### [address] [address] Globulin 3.5 G/dL Normal [facility] ([place]) Comment on above: Performed By: #### L IPID, CMP, GFR #### [address] [address] Glucose [Mass/Vol] 85 mg/dL Normal 70-105 [facility] ([place] Comment on above: Performed By: #### L IPID, CMP, GFR #### [address] [address] Potassium [Moles/Vol] 4.9 mmol/L Normal 3.5-5.1 [facility] ([place]) Comment on above: Performed By: #### L IPID, CMP, GFR #### [address] [address] Sodium [Moles/Vol] 140 mmol/L Normal 136-145 [facility] ([place] Comment on above: Performed By: #### L IPID, CMP, GFR #### [address] [address] Total Protein 7.2 G/dL Normal 6.4-8.2 [facility] ([place]) Comment on above: Performed By: #### L IPID, CMP, GFR #### [facility] [address], [place] [address] Urea nitrogen [Mass/Vol] 11 mg/dL Normal 7-18 [facility] ([place]) Comment on above: Performed By: #### L IPID, CMP, GFR #### [facility] [address], [place] [address] LABORATORYOrdered By: Laura Mclean on 11-26-2021 Albumin BCP dye [Mass/Vol] 3.7 G/dL Invalid Interpretation Code 3.5 - 5.0 G/dL AO ADM SS Albumin/Globulin [Mass ratio] 1.1 {ratio} Invalid Interpretation Code 1.1 - 2.5 ratio AO ADM SS ALP [Catalytic activity/Vol] 68 U/L Invalid Interpretation Code 40 - 135 U/L AO ADM SS ALT With P-5'-P [Catalytic activity/Vol] 21 U/L Invalid Interpretation Code 14 - 59 U/L AO ADM SS AST With P-5'-P [Catalytic activity/Vol] 17 U/L Invalid Interpretation Code 10 - 40 U/L AO ADM SS Bilirubin [Mass/Vol] 0.3 mg/dL Invalid Interpretation Code 0.2 - 1.0 mg/dL AO ADM SS Calcium [Mass/Vol] 8.9 mg/dL Invalid Interpretation Code 8.4 - 10.2 mg/dL AO ADM SS Chloride [Moles/Vol] 103 mmol/L Invalid Interpretation Code 98 - 107 mmol/L AO ADM SS Cholesterol [Mass/Vol] 235 mg/dL Invalid Interpretation Code 0 - 200 mg/dL AO ADM SS Cholesterol in HDL [Mass/Vol] 70 mg/dL Invalid Interpretation Code 40 - 60 mg/dL AO ADM SS Cholesterol in LDL [Mass/Vol] 146 mg/dL Invalid Interpretation Code 0 - 130 mg/dL AO ADM SS CO2 [Moles/Vol] 29 mmol/L Invalid Interpretation Code 22 - 29 mmol/L AO ADM SS Creatinine [Mass/Vol] 0.77 mg/dL Invalid Interpretation Code 0.55 - 1.02 mg/dL AO ADM SS Electrolyte Balance 8.0 mEq/L Invalid Interpretation Code 4.0 - 15.0 mEq/L AO ADM SS Globulin 3.5 G/dL Invalid Interpretation Code AO ADM SS Glucose [Mass/Vol] 85 mg/dL Invalid Interpretation Code 70 - 105 mg/dL AO ADM SS Potassium [Moles/Vol] 4.9 mmol/L Invalid Interpretation Code 3.5 - 5.1 mmol/L AO ADM SS Protein [Mass/Vol] 7.2 G/dL Invalid Interpretation Code 6.4 - 8.2 G/dL AO ADM SS Sodium [Moles/Vol] 140 mmol/L Invalid Interpretation Code 136 - 145 mmol/L AO ADM SS Triglyceride [Mass/Vol] 97 mg/dL Invalid Interpretation Code 0 - 150 mg/dL AO ADM SS Urea nitrogen [Mass/Vol] 11 mg/dL Invalid Interpretation Code 7 - 18 mg/dL AO ADM SS Urea nitrogen/Creatinine [Mass ratio] 14 ratio Invalid Interpretation Code 7 - 27 ratio AO ADM SS LABORATORYOrdered By: Usha Fay on 11-26-2021 Basophil, Absolute 0.1 103/mcL Invalid Interpretation Code 0.0 - 0.2 10^3/mcL AO Workflow SS Basophils/100 WBC (Bld) 1.1 % Invalid Interpretation Code 0.0 - 2.5 % AO Workflow SS Eosinophil, Absolute 0.2 103/mcL Invalid Interpretation Code 0.0 - 0.4 10^3/mcL AO Workflow SS Eosinophils/100 WBC (Bld) 2.9 % Invalid Interpretation Code 0.0 - 7.0 % AO Workflow SS Erythrocyte distribution width (RBC) [Ratio] 13.8 % Invalid Interpretation Code 11.5 - 14.5 % AO Workflow SS Hematocrit (Bld) [Volume fraction] 41.6 % Invalid Interpretation Code 37.0 - 47.0 % AO Workflow SS Hemoglobin (Bld) [Mass/Vol] 13.6 G/dL Invalid Interpretation Code 12.0 - 16.0 G/dL AO Workflow SS Lymphocyte, Absolute 2.5 103/mcL Invalid Interpretation Code 0.8 - 3.9 10^3/mcL AO Workflow SS Lymphocytes/100 WBC (Bld) 30.0 % Invalid Interpretation Code 10.0 - 50.0 % AO Workflow SS MCH (RBC) [Entitic mass] 28.1 pg Invalid Interpretation Code 27.0 - 31.2 pg AO Workflow SS MCHC 32.7 G/dL Invalid Interpretation Code 33.0 - 37.0 G/dL AO Workflow SS MCV (RBC) [Entitic vol] 85.9 fL Invalid Interpretation Code 80.0 - 94.0 fL AO Workflow SS Monocyte, Absolute 0.6 103/mcL Invalid Interpretation Code 0.2 - 1.0 10^3/mcL AO Workflow SS Monocytes/100 WBC (Bld) 6.7 % Invalid Interpretation Code 1.7 - 13.0 % AO Workflow SS Neutrophil, Absolute 4.9 103/mcL Invalid Interpretation Code 2.9 - 6.2 10^3/mcL AO Workflow SS Neutrophils/100 WBC (Bld) 59.3 % Invalid Interpretation Code 37.0 - 80.0 % AO Workflow SS Platelet mean volume (Bld) [Entitic vol] 8.5 fL Invalid Interpretation Code 7.4 - 10.4 fL AO Workflow SS Platelets (Bld) [#/Vol] 261 103/mcL Invalid Interpretation Code 130 - 400 10^3/mcL AO Workflow SS RBC (Bld) [#/Vol] 4.84 106/mcL Invalid Interpretation Code 4.20 - 5.40 10^6/mcL AO Workflow SS WBC (Bld) [#/Vol] 8.2 103/mcL Invalid Interpretation Code 4.6 - 10.8 10^3/mcL AO Workflow SS LABORATORYOrdered By: SYSTEM SYSTEM on 11-26-2021 GFR 99 ml/min/1.73sqm Invalid Interpretation Code AO Chemistry S GFR Non- 81 ml/min/1.73sqm Invalid Interpretation Code AO Chemistry S LIPIDon 11-26-2021 Cholesterol [Mass/Vol] 235 mg/dL High 0-200 [facility] ([place]) Comment on above: Result Comment: Chol esterol Reference Interval: Less than 200 Desirable 200-239 Borderline high risk 240 and above High risk Performed By: #### L IPID, CMP, GFR #### [facility] [address], [place] [address] Cholesterol in HDL [Mass/Vol] 70 mg/dL High 40-60 [facility] ([place]) Comment on above: Performed By: #### L IPID, CMP, GFR #### [facility] [address], [place] [address] Cholesterol in LDL [Mass/Vol] 146 mg/dL High 0-130 [facility] ([place]) Comment on above: Performed By: #### L IPID, CMP, GFR #### [facility] [address], [place] [address] Triglyceride [Mass/Vol] 97 mg/dL Normal 0-150 [facility] ([place]) Comment on above: Result Comment: Trig lyceride Reference Interval: Less than 150 Normal 150-199 Borderline high risk 200-499 High risk 500 or higher Very high risk Performed By: #### L IPID, CMP, GFR #### [facility] [address], [place] [address] MRI HIP WO/W IVCON LTon 07- MRI HIP WO/W IVCON LT * * *Final Report* * * DATE OF EXAM: Sep 24 2021 11:32AM RNM [id number] - MRI HIP WO/W IVCON LT / PROCEDURE REASON: 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 Bone growth 2.5 cm distal to lesser trochanter spot on x-ray. Comparison: No prior examination available for comparison. TECHNIQUE: Long and short axis fat and water weighted MR images were obtained without contrast. Fat suppressed T1 weighted coronal, sagittal and axial MR images were acquired following the uneventful administration of 12 cc Gadavist intravenously. FINDINGS: There is a 1.4 cm focus of low T1 and T2 signal adjacent to the posterior cortex of the proximal femoral shaft, just below the level of the lesser trochanter within the intermuscular septum of the lateral compartment. There is adjacent superficial convexity of the periosteum which appears chronic, with no periosteal edema or surrounding soft tissue edema identified. Marrow signal is normal. No soft tissue mass or abnormal enhancement identified. The muscles are normal in signal and morphology. No left hip joint effusion. No bursitis. 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 There are no aggressive features. Product Marketing Director: PSCB Transcribe Date/Time: Sep 27 2021 11:33A Dictated by : KERRI VANG MD This examination was interpreted and the report reviewed and electronically signed by: KERRI VANG MD on Sep 27 2021 4:27PM EST [id number] Normal [facility] MRI LUMBAR SP W/O CONTRASTon 06-19-2021 MRI LUMBAR SP W/O CONTRAST EXAMINATION: MRI LUMBAR SP W/O CONTRAST CLINICAL HISTORY: DEGENERATIVE DISC DISEASE, LUMBAR. Lower back pain and numbness in the right thigh. TECHNIQUE: Routine lumbosacral spine MR protocol without gadolinium. MQ: [id number] COMPARISON: None. RESULT: Counting reference: Lumbosacral junction. For the purposes of this report, L4-5 is considered the level of the iliac crest and assume there are 5 lumbar-type vertebrae. Anatomic variant: None. Localizer images: Noncontributory Alignment: Levocurvature apex left at L2-3. Bone marrow signal/fracture: No evidence of pathologic marrow infiltration. No evidence of prior fracture. Conus: The conus is within normal limits of signal intensity and morphology, terminating at L1-L2. Paraspinal soft tissues: Paraspinal soft tissues are within normal limits. T11-T12: Disc height loss, disc bulge with small central protrusion along with facet hypertrophy result in mild spinal canal stenosis. Foramina are patent. T12-L1: Disc height loss, disc bulge with left paracentral small superiorly oriented extrusion, contributing to mild canal stenosis. Foramina are patent. L1-L2: Canal and foramina are patent. L2-L3: Mild disc bulge and mild facet hypertrophy. No significant canal or foraminal stenosis.. L3-L4: Disc height loss greater on the right with moderate circumferential disc bulge and small central inferiorly oriented extrusion. Mild ligamentum flavum and facet hypertrophy. Findings contribute to mild canal stenosis and partial effacement of the lateral recesses. Moderate right and mild left neural foraminal narrowing. Moderate bilateral facet hypertrophy. L4-L5: Mild circumferential disc bulge with small central annular fissure and shallow protrusion, along with facet hypertrophy contributing to mild bilateral neural foraminal narrowing. No significant canal stenosis. L5-S1: Canal and foramina are patent. Mild bilateral facet hypertrophy. Sacrum and iliac wings: The visualized sacrum and iliac wings are within normal limits. IMPRESSION: Lumbar levocurvature and degenerative change greatest at L3-4 with moderate right neural foraminal narrowing and mild spinal canal stenosis. Mild canal stenosis at T11-T12 T12-L1. Anatomic Thoracic/Lumbar Variant: None. L4-5 is considered the level of the iliac crest and assume there are 5 lumbar-type vertebrae. Dictated by Chute Feeder: Javi Orta MD I, Ciro Brady MD, have supervised the procedure and/or image review, and agree with the above interpretation and report. This report was electronically signed by Ciro Brady MD 06/19/2021 4:41 PM Reported By: CIRO BRADY MD Signed By: CIRO BRADY MD [facility] CT Abdomen and Pelvis W cont rast Oscar 02-22-2021 Patient Name: MAKENNA CHEN Computed Tomography ACCESSION EXAM DATE/TIME PROCEDURE ORDERING PROVIDER [id number] 02/22/2021 20:[address] Abdomen/Pelvis w/ IV [id number] -ELYSE, Contrast (IV Onl MALINDA CPT code 68203 Q9967 Reason For Exam (CT Abdomen/Pelvis w/ IV Contrast (IV Onl) LLQ pain and nausea Report EXAMINATION: CT abdomen/pelvis Indication: LLQ pain and nausea TECHNIQUE: Axial CT images of the abdomen/pelvis were obtained without oral and with IV contrast (75 cc Isovue 370) at 3 mm intervals. Images were acquired from the lung bases through the symphysis pubis. Coronal and sagittal reconstructions were also provided for review. FINDINGS: There does appear to be cortical scarring of the right kidney. The solid organs in the upper abdomen are otherwise grossly unremarkable. The pelvic contents are grossly unremarkable. The aorta is of normal caliber and unremarkable. There is no adenopathy demonstrated. The large and small bowel are grossly unremarkable. The stomach is unremarkable. The appendix is unremarkable. Moderate to severe degenerative disc disease is present at L3/L4. Small to moderate osteophytes are present throughout the spine. There is mild scoliosis. The lung bases are grossly clear. IMPRESSION: No acute intra-abdominal process.. Computed Tomography Report Report Dictated on --- Final --- Dictating Physician: MD MANUEL KRIKOR Signed Date and Time: 02/22/2021 8:29 pm Signed by: MD MANUEL KRIKOR Transcribed Date and Time: 02/22/2021 8:30 Fred Trammell MD - 02/22/2021 Patient Name: MAKENNA CHEN Computed Tomography ACCESSION EXAM DATE/TIME PROCEDURE ORDERING PROVIDER [id number] 02/22/2021 20:[address] Abdomen/Pelvis w/ IV [id number] -ELYSE, Contrast (IV Onl MALINDA CPT code 10404 Q9967 Reason For Exam (CT Abdomen/Pelvis w/ IV Contrast (IV Onl) LLQ pain and nausea Report EXAMINATION: CT abdomen/pelvis Indication: LLQ pain and nausea TECHNIQUE: Axial CT images of the abdomen/pelvis were obtained without oral and with IV contrast (75 cc Isovue 370) at 3 mm intervals. Images were acquired from the lung bases through the symphysis pubis. Coronal and sagittal reconstructions were also provided for review. FINDINGS: There does appear to be cortical scarring of the right kidney. The solid organs in the upper abdomen are otherwise grossly unremarkable. The pelvic contents are grossly unremarkable. The aorta is of normal caliber and unremarkable. There is no adenopathy demonstrated. The large and small bowel are grossly unremarkable. The stomach is unremarkable. The appendix is unremarkable. Moderate to severe degenerative disc disease is present at L3/L4. Small to moderate osteophytes are present throughout the spine. There is mild scoliosis. The lung bases are grossly clear. IMPRESSION: No acute intra-abdominal process.. Computed Tomography Report Report Dictated on --- Final --- Dictating Physician: MD MANUEL KRIKOR Signed Date and Time: 02/22/2021 8:29 pm Signed by: MD MANUEL KRIKOR Transcribed Date and Time: 02/22/2021 8:30 [facility] Work Phone: Radiology Study observation (narrative) [facility] Work Phone: CT Abdomen and Pelvis W cont rast IVOrdered By: Fred Manuel on 02-22-2021 [facility]: CT Abdomen/Pelvis w/ Contras ton 02-22-2021 CT Abdomen/Pelvis w/ Contrast Patient Name: MAKENNA CHEN Computed Tomography ACCESSION EXAM DATE/TIME PROCEDURE ORDERING PROVIDER [id number] 02/22/2021 20:[address] Abdomen/Pelvis w/ IV [id number] -ELYSE, Contrast (IV Onl MALINDA CPT code 61300 Q9967 Reason For Exam (CT Abdomen/Pelvis w/ IV Contrast (IV Onl) LLQ pain and nausea Report EXAMINATION: CT abdomen/pelvis Indication: LLQ pain and nausea TECHNIQUE: Axial CT images of the abdomen/pelvis were obtained without oral and with IV contrast (75 cc Isovue 370) at 3 mm intervals. Images were acquired from the lung bases through the symphysis pubis. Coronal and sagittal reconstructions were also provided for review. FINDINGS: There does appear to be cortical scarring of the right kidney. The solid organs in the upper abdomen are otherwise grossly unremarkable. The pelvic contents are grossly unremarkable. The aorta is of normal caliber and unremarkable. There is no adenopathy demonstrated. The large and small bowel are grossly unremarkable. The stomach is unremarkable. The appendix is unremarkable. Moderate to severe degenerative disc disease is present at L3/L4. Small to moderate osteophytes are present throughout the spine. There is mild scoliosis. The lung bases are grossly clear. IMPRESSION: No acute intra-abdominal process.. Computed Tomography Report Report Dictated on Final Dictating Physician: MD MANUEL KRIKOR Signed Date and Time: 02/22/2021 8:29 pm Signed by: MD MANUEL KRIKOR Transcribed Date and Time: 02/22/2021 8:30 Normal [facility] Comp Metabolic Panelon 02-22 Calcium [Mass/Vol] 9.6 mg/dL Normal 8.4-10.4 [facility] Comment on above: Performed By: #### H EMDF, CMP3, LIPA4 #### [facility] [address] [place] [address] ALP [Catalytic activity/Vol] 59 U/L Normal 38-126 [facility] Comment on above: Performed By: #### H EMDF, CMP3, LIPA4 #### [facility] [address] [place] [address] ALT [Catalytic activity/Vol] 19 U/L Normal 0-34 [facility] Comment on above: Result Comment: The ALT test is performed by an updated assay method. Please note that the reference intervals have been changed and are now sex specific. Performed By: #### H EMDF, CMP3, LIPA4 #### [facility] [address] [place] [address] Anion gap [Moles/Vol] 7 mmol/L Normal 3-13 [facility] Comment on above: Performed By: #### H EMDF, CMP3, LIPA4 #### [facility] [address] [place] [address] AST [Catalytic activity/Vol] 26 U/L Normal 15-46 [facility] Comment on above: Performed By: #### H EMDF, CMP3, LIPA4 #### [facility] [address] [place] [address] CO2 [Moles/Vol] 29 mmol/L Normal 22-30 [facility] Comment on above: Performed By: #### H EMDF, CMP3, LIPA4 #### [facility] [address] [place] [address] Glucose [Mass/Vol] 100 mg/dL Normal 70-100 [facility] Comment on above: Performed By: #### H EMDF, CMP3, LIPA4 #### [facility] [address] [place] [address] Protein [Mass/Vol] 7.6 g/dL Normal 6.3-8.2 [facility] Comment on above: Performed By: #### H EMDF, CMP3, LIPA4 #### [facility] [address] [place] [address] Urea nitrogen [Mass/Vol] 10 mg/dL Normal 9-20 [facility] Comment on above: Performed By: #### H EMDF, CMP3, LIPA4 #### [facility] [address] [place] [address] Bilirubin [Mass/Vol] 0.3 mg/dL Normal 0.2-1.3 [facility] Comment on above: Performed By: #### H JACQUI FIELDS3, LIPA4 #### [facility] [address] [place] [address] Creatinine [Mass/Vol] 0.75 mg/dL Normal 0.52-1.25 [facility] Comment on above: Performed By: #### H EMDF, CMP3, LIPA4 #### [facility] [address] [place] [address] eGFR OTHER > 90.0 Normal >60 [facility] Comment on above: Result Comment: KDIG O guidelines provide the following GFR categories: Stage GFR(ml/min/1.73 m2) Terms G1 >=90 Normal or high G2 60-89 Mildly decreased* G3a 45-59 Mildly to moderately decreased G3b 30-44 Moderately to severely decreased G4 15-29 Severely decreased G5 <15 Kidney failure *Relative to young adult level. In the absence of evidence of kidney damage, neither GFR category G1 nor G2 fulfill the criteria for CKD. The CKD-EPI equation is validated in individuals 18 years of age and older. Currently the best equation for estimating glomerular filtration rate (GFR) from serum creatinine in children is the Bedside Quiroz equation. It is less accurate in patients with extremes of muscle mass, restriction of dietary protein, ingestion of creatine, extra-renal metabolism of creatinine, or treatment with medications that affect renal tubular creatinine secretion. Performed By: #### H JACQUI FIELDS3, LIPA4 #### [facility] [address] [place] [address] GFR/1.73 sq M.predicted among blacks MDRD (S/P/Bld) [Vol rate/Area] mL/min/{1.73_m2} Normal >60 [facility] Comment on above: Performed By: #### H EMDMaine, CMP3, LIPA4 #### [facility] [address] [place] [address] Albumin [Mass/Vol] 4.3 g/dL Normal 3.5-5.0 [facility] Comment on above: Performed By: #### H EMDF, CMP3, LIPA4 #### [facility] [address] [place] [address] Chloride [Moles/Vol] 105 mmol/L Normal 98-107 [facility] Comment on above: Performed By: #### H EMDF, CMP3, LIPA4 #### [facility] [address] [place] [address] Potassium [Moles/Vol] 4.5 mmol/L Normal 3.5-5.1 [facility] Comment on above: Performed By: #### H EMDF, CMP3, LIPA4 #### [facility] [address] [place] [address] Sodium [Moles/Vol] 141 mmol/L Normal 135-145 [facility] Comment on above: Performed By: #### H EMDF, CMP3, LIPA4 #### [facility] [address] [place] [address] Complete Urinalysison 2020 Appearance (U) Clear Normal [facility] Comment on above: Result Comment: . Performed By: #### H CGUR, CUA2 #### [facility] [address] [place] [address] Bilirubin,Urine Negative Normal Negative [facility] Comment on above: Result Comment: . Performed By: #### H CGUR, CUA2 #### [facility] [address] [place] [address] Color (U) Colorless Normal Lt. Yellow [facility] Comment on above: Result Comment: . Performed By: #### H CGUR, CUA2 #### [facility] [address] [place] [address] Glucose Ql (U) Normal Normal Normal (<70) [facility] Comment on above: Result Comment: . Performed By: #### H CGUR, CUA2 #### [facility] [address] [place] [address] Ketone,Urine Negative Normal Negative [facility] Comment on above: Result Comment: . Performed By: #### H CGUR, CUA2 #### [facility] [address] [place] [address] Leukocytes,Urine Negative Normal Negative [facility] Comment on above: Result Comment: . Performed By: #### H CGUR, CUA2 #### [facility] [address] [place] [address] Nitrites,Urine Negative Normal Negative [facility] Comment on above: Result Comment: . Performed By: #### H CGCINDY, CUA2 #### [facility] [address] [place] [address] Occult Blood,Urine Negative Normal Negative [facility] Comment on above: Result Comment: . Performed By: #### H CGCINDY, CUA2 #### [facility] [address] [place] [address] pH,Urine 6.5 Normal 5.0-8.0 [facility] Comment on above: Result Comment: . Performed By: #### H CGCINDY, CUA2 #### [facility] [address] [place] [address] Specific [place],Urine < 1.005 Abnormal 1.005 - 1.030 [facility] Comment on above: Result Comment: . Performed By: #### H CGCINDY, CUA2 #### [facility] [address] [place] [address] Total Protein,Urine Negative Normal Negative [facility] Comment on above: Result Comment: . Performed By: #### H CGCINDY, CUA2 #### [facility] [address] [place] [address] Urobilinogen,Urine Normal Normal Normal (0-1) [facility] Comment on above: Result Comment: . Performed By: #### H CGCINDY, CUA2 #### [facility] [address] [place] [address] Comprehensive Metabolic Pane zulema 02-22-2021 Albumin [Mass/Vol] 4.3 g/dL 3.5 - 5.0 g/dL [facility] ALP (Bld) [Catalytic activity/Vol] 59 U/L 38 - 126 U/L [facility] ALT [Catalytic activity/Vol] 19 U/L 0 - 34 U/L [facility] Comment on above: The ALT test is perf ormed by an updated assay method. Please note that the reference intervals have been changed and are now sex specific. Anion gap [Moles/Vol] 7 mmol/L 3 - 13 mmol/L [facility] AST [Catalytic activity/Vol] 26 U/L 15 - 46 U/L [facility] Bilirubin [Mass/Vol] 0.3 mg/dL 0.2 - 1 .3 mg/dL [facility] Calcium [Mass/Vol] 9.6 mg/dL 8.4 - 10. 4 mg/dL [facility] Chloride [Moles/Vol] 105 mmol/L 98 - 10 7 mmol/L [facility] CO2 [Moles/Vol] 29 mmol/L 22 - 30 mmol/L [facility] Creatinine [Mass/Vol] 0.75 mg/dL 0.52 - 1.25 mg/dL [facility] EGFR IF NonAfrican Hong Konger >90.0 >60 mL/min [facility] Comment on above: KDIGO guidelines pro vide the following GFR categories: Stage GFR(ml/min/1.73 m2) Terms G1 >=90 Normal or high G2 60-89 Mildly decreased* G3a 45-59 Mildly to moderately decreased G3b 30-44 Moderately to severely decreased G4 15-29 Severely decreased G5 <15 Kidney failure *Relative to young adult level. In the absence of evidence of kidney damage, neither GFR category G1 nor G2 fulfill the criteria for CKD. The CKD-EPI equation is validated in individuals 18 years of age and older. Currently the best equation for estimating glomerular filtration rate (GFR) from serum creatinine in children is the Bedside Quiroz equation. It is less accurate in patients with extremes of muscle mass, restriction of dietary protein, ingestion of creatine, extra-renal metabolism of creatinine, or treatment with medications that affect renal tubular creatinine secretion. Free PSA/Total PSA [Mass fraction] 7.6 g/dL 6.3 - 8.2 g/dL [facility] GFR/1.73 sq M.predicted among blacks MDRD (S/P/Bld) [Vol rate/Area] mL/min/{1.73_m2} >60 mL/min [facility] Glucose [Mass/Vol] 100 mg/dL 70 - 100 mg/dL [facility] Potassium [Moles/Vol] 4.5 mmol/L 3.5 - 5.1 mmol/L [facility] Sodium [Moles/Vol] 141 mmol/L 135 - 145 mmol/L [facility] Urea nitrogen (BldV) [Mass/Vol] 10 mg/dL 9 - 20 mg/dL [facility] ED Provider Noteon ED Provider Note [facility] [place] [facility] EM[facility]GENCY DEPARTMENT ENCOUNTER Pt Name: Makenna Chen Birthdate 1975 Date of evaluation: 02/22/2021 Provider: Malinda Pappas, DO CHIEF COMPLAINT Chief Complaint Patient presents with ? Pelvic Pain HISTORY OF PRESENT ILLNESS (Location/Symptom, Timing/Onset, Context/Setting, Quality, Duration, Modifying Factors, Severity) Note limiting factors. I wore a N95 mask for the entirety of this encounter. Does this patient come from an ECF, SNF, Rehab, Snf or other Congregate setting: no (If yes to above patient needs a Covid-19 test) HPI Patient is a 45-year-old female presents emergency department today with left lower quadrant abdominal pain and nausea. She states this has been on and off for months. Also endorses some spotting which has been on and off for months as well. 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 Denies any fevers, chills, unusual vaginal discharge but does state her pain is now rating to her left flank. Denies any vomiting, diarrhea or urinary complaints. Has history of 2 C-sections in the past as well as tubal ligation and abdominoplasty. Otherwise past medical history is consistent for asthma, hypertension and gastric reflux. Nursing Notes were reviewed. REVIEW OF SYSTEMS (2+ for level 4; 10+ for level 5) Review of Systems Constitutional: Negative for chills and fever. Gastrointestinal: Positive for abdominal pain and nausea. Negative for diarrhea and vomiting. Genitourinary: Positive for vaginal bleeding. Negative for dysuria, frequency and vaginal discharge. PAST MEDICAL HISTORY Past Medical History: Diagnosis Date ? Acid reflux ? Headache ? Hypertension ? IBS (irritable bowel syndrome) SURGICAL HISTORY History reviewed. No pertinent surgical history. CURRENT MEDICATIONS Previous Medications LISINOPRIL (PRINIVIL;ZESTRIL) 10 MG TABLET Take 10 mg by mouth daily OMEPRAZOLE (PRILOSEC) 10 MG DELAYED RELEASE CAPSULE Take 10 mg by mouth daily ALLERGIES Dilaudid [hydromorphone] FAMILY HISTORY History reviewed. No pertinent family history. SOCIAL HISTORY Social History Socioeconomic History ? Marital status: Spouse name: None ? Number of children: None ? Years of education: None ? Highest education level: None Occupational History ? None Tobacco Use ? Smoking status: Never Smoker ? Smokeless tobacco: Never Used Substance and Sexual Activity ? Alcohol use: Yes Comment: socially ? Drug use: Never ? Sexual activity: None Other Topics Concern ? None Social History Narrative ? None Social Determinants of Health Financial Resource Strain: ? Difficulty of Paying Living Expenses: Not on file Food Insecurity: ? Worried About Running Out of Food in the Last Year: Not on file ? Ran Out of Food in the Last Year: Not on file Transportation Needs: ? Lack of Transportation (Medical): Not on file ? Lack of Transportation (Non-Medical): Not on file Physical Activity: ? Days of Exercise per Week: Not on file ? Minutes of Exercise per Session: Not on file Stress: ? Feeling of Stress : Not on file Social Connections: ? Frequency of Communication with Friends and Family: Not on file ? Frequency of Social Gatherings with Friends and Family: Not on file ? Attends Pentecostalism Services: Not on file ? Active Member of Clubs or Organizations: Not on file ? Attends Club or Organization Meetings: Not on file ? Marital Status: Not on file Intimate Partner Violence: ? Fear of Current or Ex-Partner: Not on file ? Emotionally Abused: Not on file ? Physically Abused: Not on file ? Sexually Abused: Not on file Housing Stability: ? Unable to Pay for Housing in the Last Year: Not on file ? Number of Places Lived in the Last Year: Not on file ? Unstable Housing in the Last Year: Not on file SCREENINGS PHYSICAL EXAM (up to 7 for level 4, 8 or more for level 5) ED Triage Vitals BP Temp Temp src Pulse Resp SpO2 Height Weight -- -- -- -- -- -- -- -- Physical Exam Constitutional: Appearance: Normal appearance. HENT: Head: Normocephalic and atraumatic. Nose: Nose normal. Mouth/Throat: Mouth: Mucous membranes are moist. Eyes: Conjunctiva/sclera: Conjunctivae normal. Cardiovascular: Rate and Rhythm: Normal rate and regular rhythm. Pulmonary: Effort: Pulmonary effort is normal. Breath sounds: Normal breath sounds. Abdominal: General: Abdomen is flat. Palpations: Abdomen is soft. Tenderness: There is abdominal tenderness. There is no guarding or rebound. Comments: LLQ Musculoskeletal: General: Normal range of motion. Cervical back: Normal range of motion. Skin: General: Skin is warm and dry. Neurological: General: No focal deficit present. Mental Status: She is alert. Mental status is at baseline. Psychiatric: Mood and Affect: Mood normal. Behavior: Behavi (more content not included)... Normal [facility] HCG,Urine Qualon 02-22-2021 Beta HCG ( test) Ql (U) Negative Normal Negative [facility] Comment on above: Result Comment: Abel dyson note: Very dilute urine specimens, as indicated by a low specific gravity, may not contain open claims representative levels of hCG. If is still suspected, a first morning urine specimen should be collected 48 hours later and tested. is the most common reason for HCG in urine, although choriocarcinoma, hydatidiform mole, and certain nontropho- blastic malignancies also result in detectable urinary HCG levels. Sensitivity = 20mIU/mL. Performed By: #### H BRITNEY, CUA2 #### [facility] [address] [place] [address] Hemogram (CBC) w/Auto Diffon 02-22-2021 Absolute Baso # 0.1 10*3/uL 0.0 - 0.2 10*3/uL [facility] Absolute Neut # 4.6 10*3/uL 1.8 - 7.0 10*3/uL [facility] Basophils/100 WBC (Bld) 1.3 % 0.0 - 2.0 % [facility] Eosinophils (Bld) [#/Vol] 0.3 10*3/uL 0.0 - 0.5 10*3/uL [facility] Eosinophils/100 WBC (Bld) 3.3 % 1.0 - 6.0 % [facility] Granulocytes/100 WBC (Bld) 54.1 % 40.0 - 80.0 % [facility] Hematocrit (Bld) [Volume fraction] 39.6 % 35.0 - 47.0 % [facility] Hemoglobin.gastrointes tinal spec 1 Ql (Stl) 13.1 g/dL 11.7 - 16.0 g/dL [facility] Lymphocytes (Bld) [#/Vol] 3.0 10*3/uL 1.0 - 4.3 10*3/uL [facility] Lymphocytes/100 WBC (Bld) 34.8 % 20.0 - 40.0 % [facility] MCH (RBC) [Entitic mass] 28.8 pg 26.0 - 34.0 pg [facility] MCHC (RBC) [Mass/Vol] 33.0 % 32.0 - 36.0 % [facility] MCV (RBC) [Entitic vol] 87.4 fL 79.0 - 98.0 fL [facility] Monocytes (Bld) [#/Vol] 0.6 10*3/uL 0.0 - 0.8 10*3/uL [facility] Monocytes/100 WBC (Bld) 6.5 % 2.0 - 10.0 % [facility] Platelet distribution width (Bld) [Ratio] 13.7 % 11.5 - 14.5 % [facility] Platelet mean volume (Bld) [Entitic vol] 7.9 fL 7.4 - 10.4 fL [facility] Platelets (Bld) [#/Vol] 245 10*3/uL 140 - 440 10*3/uL [facility] RBC (Bld) [#/Vol] 4.53 10*6/uL 3.80 - 5.2 0 10*6/uL [facility] WBC (Bld) [#/Vol] 8.5 10*3/uL 3.6 - 10.7 10*3/uL [facility] Hemogram w/ Autodiffon 02-22 Abs Baso Cnt 0.1 10*3/uL Normal 0.0-0.2 [facility] Comment on above: Performed By: #### H EMDF, CMP3, LIPA4 #### [facility] [address] [place] [address] Abs Neutrophile Cnt 4.6 10*3/uL Normal 1.8-7.0 [facility] Comment on above: Performed By: #### H EMDF, CMP3, LIPA4 #### [facility] [address] [place] [address] Basophils/100 WBC (Bld) 1.3 % Normal 0.0-2.0 [facility] Comment on above: Performed By: #### H EMDF, CMP3, LIPA4 #### [facility] [address] [place] [address] Eosinophils (Bld) [#/Vol] 0.3 10*3/uL Normal 0.0-0.5 [facility] Comment on above: Performed By: #### H EMDF, CMP3, LIPA4 #### [facility] [address] [place] [address] Eosinophils/100 WBC (Bld) 3.3 % Normal 1.0-6.0 [facility] Comment on above: Performed By: #### H EMDF, CMP3, LIPA4 #### [facility] [address] [place] [address] Erythrocyte distribution width (RBC) [Ratio] 13.7 % Normal 11.5-14.5 [facility] Comment on above: Performed By: #### H EMDF, CMP3, LIPA4 #### [facility] [address] [place] [address] Granulocytes/100 WBC (Bld) 54.1 % Normal 40.0-80.0 [facility] Comment on above: Performed By: #### H EMDF, CMP3, LIPA4 #### [facility] [address] [place] [address] Hematocrit (Bld) [Volume fraction] 39.6 % Normal 35.0-47.0 [facility] Comment on above: Performed By: #### H EMDF, CMP3, LIPA4 #### [facility] [address] [place] [address] Hemoglobin (Bld) [Mass/Vol] 13.1 g/dL Normal 11.7-16.0 [facility] Comment on above: Performed By: #### H EMDF, CMP3, LIPA4 #### [facility] [address] [place] [address] Lymphocytes (Bld) [#/Vol] 3.0 10*3/uL Normal 1.0-4.3 [facility] Comment on above: Performed By: #### H EMDF, CMP3, LIPA4 #### [facility] [address] [place] [address] Lymphocytes/100 WBC (Bld) 34.8 % Normal 20.0-40.0 [facility] Comment on above: Performed By: #### H EMDF, CMP3, LIPA4 #### [facility] [address] [place] [address] MCH (RBC) [Entitic mass] 28.8 pg Normal 26.0-34.0 [facility] Comment on above: Performed By: #### H EMDF, CMP3, LIPA4 #### [facility] [address] [place] [address] MCHC 33.0 % Normal 32.0-36.0 [facility] Comment on above: Performed By: #### H EMDF, CMP3, LIPA4 #### [facility] [address] [place] [address] MCV (RBC) [Entitic vol] 87.4 fL Normal 79.0-98.0 [facility] Comment on above: Performed By: #### H EMDF, CMP3, LIPA4 #### [facility] [address] [place] [address] Monocytes (Bld) [#/Vol] 0.6 10*3/uL Normal 0.0-0.8 [facility] Comment on above: Performed By: #### H EMDF, CMP3, LIPA4 #### [facility] [address] [place] [address] Monocytes/100 WBC (Bld) 6.5 % Normal 2.0-10.0 [facility] Comment on above: Performed By: #### H EMDF, CMP3, LIPA4 #### [facility] [address] [place] [address] Platelet mean volume (Bld) [Entitic vol] 7.9 fL Normal 7.4-10.4 [facility] Comment on above: Performed By: #### H EMDF, CMP3, LIPA4 #### [facility] [address] [place] [address] Platelets (Bld) [#/Vol] 245 10*3/uL Normal 140-440 [facility] Comment on above: Performed By: #### H EMDF, CMP3, LIPA4 #### [facility] [address] [place] [address] RBC (Bld) [#/Vol] 4.53 10*6/uL Normal 3.80-5.20 [facility] Comment on above: Performed By: #### H EMDF, CMP3, LIPA4 #### [facility] [address] [place] [address] WBC (Bld) [#/Vol] 8.5 10*3/uL Normal 3.6-10.7 [facility] Comment on above: Performed By: #### H EMDF, CMP3, LIPA4 #### [facility] [address] [place] [address] Lipaseon 02-22-2021 Lipase [Catalytic activity/Vol] 87 U/L Normal 23-300 [facility] Comment on above: Performed By: #### H EMDF, CMP3, LIPA4 #### [facility] [address] [place] [address] Lipase [Catalytic activity/Vol] 87 U/L 23 - 300 U/L [facility] No Panel Informationon 02-22 Test Performed by [facility], [address] LAB [facility] Test Performed by [facility], [address] [facility] , URINEon Beta HCG ( test) Ql (U) Negative Negative NA [facility] Comment on above: Please note: Very di lute urine specimens, as indicated by a low specific gravity, may not contain open claims representative levels of hCG. If is still suspected, a first morning urine specimen should be collected 48 hours later and tested. is the most common reason for HCG in urine, although choriocarcinoma, hydatidiform mole, and certain nontropho- blastic malignancies also result in detectable urinary HCG levels. Sensitivity = 20mIU/mL. Urinalysison 02-22-2021 Appearance (U) Clear Clear NA [facility] Comment on above: . Bilirubin Urine Negative Negative mg/dL [facility] Comment on above: . Color (U) Colorless Lt. Yellow NA [facility] Comment on above: . Glucose, Ur Normal Normal (<70) mg/dL [facility] Comment on above: . Interpretation and review of laboratory results Abnormal [facility] Ketones Ql (U) Negative Negative mg/dL [facility] Comment on above: . LEUKOCYTES, UA Negative Negative Barby/uL [facility] Comment on above: . Nitrite, Urine Negative Negative NA [facility] Comment on above: . Occult Blood,Urine Negative Negative mg/dL [facility] Comment on above: . pH (U) 6.5 [pH] [facility] Comment on above: . Specific [place], Urine <1.005 Abnormal [facility] Comment on above: . Total Protein, Urine Negative Negativ e mg/dL [facility] Comment on above: . Urobilinogen, Urine Normal Normal ( 0-1) mg/dL [facility] Comment on above: . Test Performed by [facility], [address] [place], [place] [address] [facility] Office Visiton 02-02-2017 Documentation of current medications (procedure) Done Invalid Interpretation Code [facility] Work Phone: Tobacco smoking status NHIS Unknown Invalid Interpretation Code [facility] Work Phone: Tobacco use [facility] Former smoker Invalid Interpretation Code [facility] Work Phone: Office Visiton 08-13-2016 Documentation of current medications (procedure) Done Invalid Interpretation Code [facility] Work Phone: Documentation of current medications (procedure) T Invalid Interpretation Code [facility] Work Phone: Tobacco smoking status NHIS Unknown Invalid Interpretation Code [facility] Work Phone: Tobacco use [facility] Former smoker Invalid Interpretation Code [facility] Work Phone: Vital Signs Date Time Vital Sign Value Performing Clinician Facility 12-21-2024 13:29-0400 Body height 157.[address] Jesus Alberto Payton DO Work Phone: [facility] 12-21-2024 13:29-0400 Body mass index (BMI) [Ratio] 35.5 kg/m2 Dr. Jesus Alberto Payton DO Work Phone: [facility] 12-21-2024 13:29-040 Body weight 88.[address] Jesus Alberto Payton DO Work Phone: [facility] 12-21-2024 13:29-0400 Diastolic blood pressure 72 mm[Hg] Dr. Jesus Alberto Payton DO Work Phone: [facility] 12-21-2024 13:29-0400 Systolic blood pressure 94 mm[Hg] Dr. Jesus Alberto Payton DO Work Phone: [facility] 08-25-2022 12:18-0400 Body temperature 98.5 [degF] Dr. Jesus Alberto Payton Work Phone: [facility] 08-25-2022 12:18-0400 Diastolic blood pressure 86 mm[Hg] Dr. Jesus Alberto Payton Work Phone: [facility] 08-25-2022 12:18-0400 Heart rate 94 /min Dr. Jesus Alberto Payton Work Phone: [facility] 08-25-2022 12:18-0400 Respiratory rate 14 /min Dr. Jesus Alberto Payton Work Phone: [facility] 08-25-2022 12:18-0400 SaO2% (BldA) [Mass fraction] 98 % Dr. Jesus Alberto Payton Work Phone: [facility] 08-25-2022 12:18-0400 Systolic blood pressure 120 mm[Hg] Dr. Jesus Alberto Payton Work Phone: [facility] 02-22-2021 17:56-0500 Body height 160 cm Malinda Elyse DO Work Phone: [facility] 02-22-2021 17:56-0500 Body mass index (BMI) [Ratio] 42.51 kg/m2 Malinda Elyse DO Work Phone: [facility] 02-22-2021 17:56-0500 Body weight 108.86 kg Malinda Elyse DO Work Phone: [facility] 02-22-2021 17:54-0500 Body temperature 99.61 [degF] Malinda Pappas DO Work Phone: [facility] 02-22-2021 17:54-0500 Diastolic blood pressure 85 mm[Hg] Malinda Pappas DO Work Phone: [facility] 02-22-2021 17:54-0500 Heart rate 75 /min Malinda Elyse DO Work Phone: [facility] 02-22-2021 17:54-0500 Respiratory rate 15 /min Malinda Beauchampoch DO Work Phone: [facility] 02-22-2021 17:54-0500 SaO2% (BldA) [Mass fraction] 100 % Malinda Elyse DO Work Phone: [facility] 02-22-2021 17:54-0500 Systolic blood pressure 148 mm[Hg] Malinda Pappas DO Work Phone: [facility] 08-13-2016 12:54-0400 BMI (Body Mass Index) 35.78 kg/m2 [facility] Work Phone: 08-13-2016 12:54-0400 Height 160.02 cm [facility] Work Phone: 08-13-2016 12:54-0400 Weight 91.63 kg [facility] Work Phone: Encounters Encounter Date Encounter Type Care Provider Facility Start: 02-21-2025 ambulatory Makenna [facility]ty:[facility] Start: 01-12-2025 End: 01-12-2025 ambulatory MARK MARTINEZ Facility:[facility] Start: 01-06-2025 End: 01-06-2025 ambulatory Marilyn Newman Facility:[facility] Start: 12-30-2024 End: 12-30-2024 ambulatory Marilyn Newman Facility:[facility] Start: 12-21-2024 End: 12-21-2024 Patient encounter procedure Marilyn Newman NP-Graciela -Laboratory Specimen Work Phone: Start: 12-21-2024 End: 12-21-2024 Patient encounter procedure Marilyn Newman NP-C -[facility] Work Phone: Start: 12-21-2024 End: 12-21-2024 Patient encounter status Marilyn Newman NP-C [facility] Start: 12-21-2024 End: 12-21-[address] Jesus Alberto Payton DO Work Phone: -[facility] Start: 12-21-2024 End: 12-21-2024 ambulatory MARK ANDREW Facility:[facility] Start: 11-11-2024 End: 11-11-2024 ambulatory MARK MARTINEZ QUALITY CONTROL ENGINEER-OIL PIPELINE OPERATOR Facility:[facility] Start: 11-11-2024 End: 11-11-2024 Patient encounter procedure MARK MARTINEZ QUALITY CONTROL ENGINEER-OIL PIPELINE OPERATOR [facility] Start: 10-07-2024 End: 10-07-2024 ambulatory JESUS ALBERTO BALDWINSAY Facility:[facility] Start: 10-07-2024 End: 10-07-2024 Patient encounter procedure JESUS ALBERTO PAYTON DO [facility] Start: 03-17-2024 End: 03-17-2024 ambulatory JESUS ALBERTO BALDWINHESHAM JONES [facility] Start: 03-17-2024 End: 03-17-2024 Patient encounter procedure JESUS ALBERTO PAYTON DO [facility] Start: 03-11-2024 End: 03-11-2024 ambulatory JESUS ALBERTO RILEY DO Facility:[facility] Start: 03-11-2024 End: 03-11-2024 Patient encounter procedure JESUS ALBERTO PAYTON DO [facility] Start: 10-17-2022 End: 10-17-[address] Jesus Alberto Payton Work Phone: [facility] Work Phone: Start: 10-17-2022 End: 10-17-[address] Jesus Alberto Payton Work Phone: [facility] Work Phone: Start: 08-25-2022 End: 08-25-[address] Jesus Alberto Payton Work Phone: [facility] Work Phone: Start: 01-16-2022 End: 01-17-2022 ambulatory JESUS ALBERTO PAYTON [facility] Start: 11-26-2021 End: 11-27-2021 ambulatory JESUS ALBERTO PAYTON Facility:B Start: 11-26-2021 End: 11-26-2021 Patient encounter procedure JESUS ALBERTO PAYTON DO [facility] Start: 09-24-2021 End: 09-24-2021 Subsequent hospital visit by physician [employer] [facility] RADIO MRI [facility] Comment on above: Neoplasm of unspecif ied behavior of bone, soft tissue, 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 Jesus Alberto Payton DO Work Phone: Comment on above: NEGATIVE FOR INTRAEP ITHELIAL LESION OR MALIGNANCY. This liquid based Th inPrep(R) pap test was interpretedusing the Aunt Bertha(R) Genius(TM) Cervical Algorithm wholeslide imaging system. Start: 02-22-2021 Urnls dip stick/tabl et rgnt auto w/o microscopy Malinda Pappas DO Work Phone: Start: 02-22-2021 Comprehensive metabo lic panel Malinda Pappas DO Work Phone: Start: 02-22-2021 Computed tomography of abdomen and pelvis with contrast Malinda Pappas DO Work Phone: Start: 12-30-2019 Arthroscopy of ankle RO LAURIE PAYTON DO Comment on above: RIGHT ANKLE, LATERAL ANKLE SATBILIZATION WITH INTERNAL BRACING section JESUS ALBERTO DAHL DO Comment on above: X2 H/O: section H/O: liliana joanie section( Confirmed ) JESUS ALBERTO PAYTON DO H/O: surgery H/O prior ablati on treatment( Confirmed ) JESUS ALBERTO PAYTON DO H/O: tubal ligation H/O tubal li gation( Confirmed ) JESUS ALBERTO PAYTON DO Ligation of fallopian tube R DONALDO RILEY DO Right upper arm stru cture (body structure) JESUS ALBERTO PAYTON DO Comment on above: PLATE Plan of Treatment Date Care Activity Detail Author Start: 01-06-2025 MG Breast - bilateral Screening [facility] Start: 12-30-2024 Pelvic echography Pelvic w/ Transvaginal [facility] Start: 12-30-2024 Patient encounter procedure Registered Clinical -Ultrasound [facility] Work Phone: Start: 02-22-2022 Creatinine measurement Creatinine monitoring [facility] Start: 02-22-2022 Potassium monitoring Potassium monitoring [facility] Start: 11-07-2021 Influenza vaccination INFLUENZA (#1) [facility] Start: 11-27-2020 COVID-19 VACCINE (3 - Booster for Pfizer series) COVID-19 VACCINE (3 - Booster for Pfizer series) [facility] Start: 11-07-2020 Influenza vaccination Flu vaccine (#1) [facility] Start: 12-05-2019 PAP TESTING PAP TESTING [facility] Start: 11-25-2017 HPV TESTING HPV TESTING [facility] Start: 2017 Mammography MAMMOGRAM [facility] Start: 02-27-2017 End: 02-27-2017 Appointment Appointment [facility] Work Phone: Start: 02-17-2017 End: 02-17-2017 Appointment Appointment [facility] Work Phone: Start: 08-13-2016 End: 08-13-2016 Radex hip unilateral with pelvis 2-3 views X-Ray, Hip, unilateral, with pelvis; 2-3 views [facility] Work Phone: Start: 1996 Urine microalbumin profile DTAP,TDAP,TD (1 - Tdap) [facility] Start: 09-16-1995 HEPATITIS C SCREENING HEPATITIS C SCREENING [facility] Start: 09-16-1995 HIV SCREENING HIV SCREENING [facility] Start: 1989 Adult depression screening assessment DEPRESSION SCREENING [facility] Start: 1989 COVID-19 Vaccine (1) COVID-19 Vaccine (1) [facility] Immunizations Immunization Date Immunization Notes Care Provider Fa rohith 10-20-2024 tetanus toxoid, reduced diphtheria toxoid, and acellular pertussis vaccine, adsorbed; Translations: [Boostrix (Tdap)] MARK MARTINEZ QUALITY CONTROL ENGINEER-OIL PIPELINE OPERATOR [facility] 06-27-2020 SARS-CoV-2 mRNA (tozinameran) vaccine JESUS ALBERTO RILEY DO [facility] Comment on above: Result Comment: [facility] 06-06-2020 SARS-CoV-2 mRNA (tozinameran) vaccine JESUS ALBERTO RILEY DO [facility] Comment on above: Result Comment: quintin wasserman 11-28-2014 influenza virus vaccine, unspecified formulation JESUS ALBERTO RILEY DO [facility] 02-13-2014 influenza virus vaccine, unspecified formulation JESUS ALBERTO RILEY DO [facility] 02-11-2013 tetanus toxoid, reduced diphtheria toxoid, and acellular pertussis vaccine, adsorbed JESUS ALBERTO RILEY DO [facility] Payers Date Payer Category Payer Self-pay [id number] 2023 Unknown [id number] 2022 Private Health Insurance 2 [id number] 2021 Unknown [id number] 2021 Unknown 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 [id number] 2021-Present [phone] [address] [place] [address] PPO [id number] 1977 Unknown [id number] [id number] 27 1977 Unknown [id number] [id number] 27 1977 Unknown [id number] 2.16.840.1.951478.3.579.2.4 79 1977 Unknown [id number] 2.16.840.1.838418.3.579.2.6 27 1977 Unknown [id number] 2.16.840.1.684244.3.579.2.6 27 1977 Unknown [id number] 2.16.840.1.260912.3.579.2.6 27 1977 Unknown [id number] 2.16.840.1.758149.3.579.2.6 27 1977 Unknown [id number] 2.16.840.1.351543.3.579.2.6 27 Private Health Insurance [facility] [address] [id number] Unknown [id number] Unknown [id number] Unknown [id number] 2.16.840.1.056045.3.579.2.4 62 Unknown [id number] 2.16.840.1.282487.3.579.2.4 62 Unknown [id number] 2.16.840.1.715183.3.579.2.4 62 Unknown [id number] 2.16.840.1.495501.3.579.2.4 62 Unknown [id number] 2.16.840.1.646493.3.579.2.4 62 Unknown [id number] 2.16.840.1.712510.3.579.2.4 62 Unknown [id number] 2.16.840.1.040574.3.579.2.4 62 Social History Date Type Detail Facility Start: 02-22-2021 End: 12-21-2024 Tobacco smoking status NJIS Never smoked tobacco [facility] Work Phone: Start: 02-22-2021 Tobacco use and exposure Smoke less tobacco non-user [facility] Work Phone: Start: 02-22-2021 Alcohol intake Current drinke r of alcohol (finding) [facility] Work Phone: Start: 02-22-2021 History SDOH Alcohol Comment socially [facility] Work Phone: Start: 1975 Sex Assigned At Not on file [facility] [employer] Work Phone: Start: 09-14-2021 End: 09-24-2021 Exposure to SARS-CoV-2 (event) Not sure [facility] Work Phone: Start: 08-25-2022 [facility] Start: 1975 Sex Assigned At Female A [facility] Start: 03-15-2019 Non-smoker [facility] Sexual Orientation [facility] Start: 09-01-2018 Sex Female (finding) [facility] Sex Female [facility] Medical Equipment Procedure Code Equipment Code Equipment Origin al Text Equipment Identifier Dates Unknown Unknown 03/09/12 Non Biological Unknown FDA Start: 03-09-2012 NANOTACK FLEX 1. 4MM DRILL BIT FDA Start: 02-17-2017 NANOTACK FLEX CAMEJO TURE ANCHOR FDA Start: 02-17-2017 NANOTACK FLEX CAMEJO TURE ANCHOR FDA Start: 02-17-2017 SLINGSHOT 45 DEG REE UP FDA Start: 02-17-2017 LIZANDRO TRANSPOR T CANNULA FDA Start: 02-17-2017 LIZANDRO TRANSPOR T CANNULA FDA Start: 02-17-2017 Unknown Unknown 03/09/12 Non Biological Unknown FDA Start: 03-09-2012 Unknown Unknown 03/09/12 Non Biological Unknown FDA Start: 03-09-2012 Unknown Unknown 03/09/12 Non Biological Unknown FDA Start: 03-09-2012 Unknown Unknown 03/09/12 Non Biological Unknown FDA Start: 03-09-2012 Unknown Unknown 03/09/12 Non Biological Unknown FDA Start: 03-09-2012 NANOTACK FLEX 1. 4MM DRILL BIT FDA Start: 02-17-2017 NANOTACK FLEX CAMEJO TURE ANCHOR FDA Start: 02-17-2017 NANOTACK FLEX CAMEJO TURE ANCHOR FDA Start: 02-17-2017 SLINGSHOT 45 DEG REE UP FDA Start: 02-17-2017 LIZANDRO TRANSPOR T CANNULA FDA Start: 02-17-2017 LIZANDRO TRANSPOR T CANNULA FDA Start: 02-17-2017 Clinical Notes 09-24-2021 to 12-21-2024 Note Date & Type Note Facility 12-21-2024 Progress note [facility] 12-21-2024 Progress note Note Date/Time December 21, 2024 2:16pm [facility] [address], [address] [place] [address] OFFICE VISIT Date of Service: 12/21/24 MR#: [id number] Acct: [id number] Name: MAKENNA CHEN Lenin Rep #: [id number] : 1975 Provider: DARIAN Newman Age/Sex: 49/F Location: [facility] Status: Signed Intake Vital Signs 09/04/21 08:36 12/21/24 13:29 Height 5 ft 2.5 in 5 ft 2 in Weight: 194 lb 2 oz BMI 35.5 BP 94/72 Intake 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 Is patient in pain?: No Allergies hydromorphone Allergy (Verified 08/26/23 06:14) Anaphylaxis Medications ?Medication ?Instructions ?Recorded ?Confirmed ?Type lisinopril 10 mg tablet 10 mg PO DAILY #30 tabs 11/0712/21/24 History alprazolam 0.5 mg tablet (Xanax) 0.5 mg PO QHS PRN 12/21/24 History linaclotide 72 mcg capsule 72 mcg PO QDAY 12/21/24 History (Linzess) tirzepatide 10 mg/0.5 mL 10 mg subcut QWEEK 12/21/24 12/21/24 History subcutaneous pen injector (Mounjaro) vonoprazan 20 mg tablet 20 mg PO QDAY 12/21/2412/21 History Is last menstrual period known: No Post menopausal: No Patient : No : No PFSH Medical History Abnormal bruising Back pain Hemorrhoids HTN (hypertension) Migraine Neck pain Stomach ulcer Surgical History H/O foot surgery right hip arthroscopy S/P Family History (Updated 12/21/24 @ 13:37 by Staci Hector) Mother Diabetes Hypertension Father Seizures Brain tumor Grandfather Myocardial infarction Grandmother Myocardial infarction Social History (Updated 12/21/24 @ 13:39 by Staci Hector) adopted: No number of children: 2 current occupational status: employed current occupation: [employer] sexually active: Yes Smoking Status: Never smoker alcohol intake: never substance use type: does not use what type of physical activity do you participate in: walking seatbelt use: always do you feel safe at home: Yes 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 Date Name GA/Weeks Outcome Route Bth Weight Gen Labor Lgth Anesthesia Del Locatn Provider FOB Unknown 2002 [facility] Male Shana lehman Delivery Date: Last Updated by: Staci rivers HPI Encounter for routine gynecological examination Details: MAKENNA CHEN is a 49 year old who presents for annual exam and to establish care. She was a previous patient of Dr. Alanis in [place] (s/p ablation approx 10 years ago); Periods stopped however then started spotting a couple years ago however about a year ago when she has an orgasm/sexually active. Has to wear a tampon after this. Reports she also has right pelvic pain; occasionally shoots down her leg when at its worst. Last PAP: 2022; normal per pt. History of abnormal PAP: yes years ago per pt. Last mammogram: due History of abnormal mammogram: n/a Colon cancer screenin; cologaurd this year; normal per patient Other preventative health care screenings: Mark Martinez; PCP ROS Const Constitutional: Denies chills, fatigue, fever(s), headache(s), weight gain or weight loss Eyes Eyes: Denies change in vision ENT ENT: Denies dizziness Cardio Card: Denies chest pain Resp Resp: Denies cough or dyspnea GI GI: Denies abdominal pain, constipation, nausea or vomiting : Denies difficulty voiding, dysuria, hematuria, pelvic pain, prolapse symptoms, urinary frequency, urinary incontinence, urinary urgency, vaginal discharge, vaginal dryness, vaginal odor or vaginal pruritus Skin Skin/Breast: Denies alopecia, new lesions, rash, breast mass, breast pain or breast skin changes Neuro Neuro: Denies dizziness Psych Psych: Denies anxiety or depression Endo Endo: Denies cold intolerance, excessive sweating or heat intolerance Exam Const General: cooperative, healthy appearing, comfortable, no acute distress, well groomed and well hydrated Nutritional Appearance: well nourished Orientation: alert, awake and oriented x3 HENMT Head: normal to inspection and normocephalic Ears: hearing grossly normal bilaterally and external ears normal Nose: external nose normal Face and sinus: normal facial exam Eyes General: appearance normal, both eyes and all related structures Neck Neck: normal visual inspection, full ROM and no lymphadenopathy Thyroid: thyroid normal Chest Chest palpation & inspection: normal inspection of the chest Breast inspection: normal inspection of the breasts and normal inspection of theaxillae Breast palpation: normal palpation of the breasts, normal palpation of the axillae and no axillary lymphadenopathy Resp Effort & Inspection: normal respiratory effort, able to speak in complete sentences and symmetric chest movement GI Inspection: normal to inspection Palpation: soft and no hepatosplenomegaly General: bladder normal to palpation External Female Exam: normal external appearance and normal appearance of the urethra Urethra: normal appearance of the urethra Speculum Exam - Vagina: normal appearance of the vagina, normal vaginal discharge, no lesions and nontender Speculum Exam - Cervix: normal appearance of the cervix (menses (brown) present), no lesions and no masses Bimanual Exam- Vagina & Uterus: normal bimanual exam, uterine size normal, bladder normal to palpation, normal palpation and non-tender Bimanual Exam- Adnexa, other: normal adnexae, no masses, normal and tender on the left Pelvic Support: normal Skin General: no rashes or lesions noted Neuro General: patient alert, patient awake, patient oriented x3 and moves all extremities Psych Appearance: grossly normal Mental Status: mental status grossly normal Affect: normal affect Speech and Movement: speech and movement normal Attitude: cooperative Coding Level of Care Code New Pt Off vis,new,prev 40-64yrs Patient Type New Diagnoses Encounter for routine gynecological examination Z01.419 Abnormal uterine bleeding (AUB) N93.9 PCB (post coital bleeding) N93.0 Assessment and Plan Assessment and Plan (1) Encounter for routine gynecological examination: Plan: Breast and pelvic exam complete. PAP due: 2022; normal per patient; repeated today due to post coital bleeding Mammogram due: orders placed to obtain Advised self breast exams monthly. Contraception: tubal Advised incorporating healthy dietary choices such as increase in lean meats, fruits/vegetables, less processed food/sat fat/trans fats. Increase exercise to 30 minutes per day/5 days a week. This can include both weight bearing exercisesand/or brisk walking. Follow up with PCP for further preventative health screenings. 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 Call office sooner with questions or concerns. (2) Abnormal uterine bleeding (AUB): Status: Acute Comment: s/p ablation x 10 years Plan: ultrasound and PAP complete today. Final plan with results. (3) PCB (post coital bleeding): Status: Acute Plan: declines STD testing. Ultrasound and PAP complete Orders: Orders PAP IG HPV APTIMA 16/18,45 Today Z12.4 - Encounter for screening for malignant neoplasm of cervix SCRN MAMM (CAD)W/BEE BILAT Today Z12.31 - Encounter for screening mammogram for malignant neoplasm of breast Pelvic w/ Transvaginal Today N93.9 - Abnormal uterine and vaginal bleeding, unspecified 12/21/24 1444 <Electronically signed by Marilyn FARMER> Date _ Marilyn COLBERTC Cosigner Signature: Date (if applicable) CC: ~ [facility] Work Phone: 1(766) 394-123207-19-2022 NoteHNO ID: [id number] Author: RT Dong (Rt)(Kev) Service: ? Author Type: Coil Winder Strap Type: Progress Notes Filed: 09/24/2021 11:36 AM Note Text: Radiology Service Progress Note DATE OF SERVICE: September 24, 2021 TIME: 11:35 AM PATIENT IDENTITY VERIFICATION COMPLETED USING TWO (2) STANDARD IDENTIFIERS: Name and Date of confirmed by patient verbally. FALL SCREENING: Has the patient had 2 falls in the last year or 1 fall with injury or currently using an Ambulatory Assistive Device (Walker, Cane, Wheelchair, Crutches, etc.)? No PATIENT GENDER DATA: Female. status: : No status: NO. PATIENT RELEVANT IMPLANT DATA REVIEWED: Yes ALLERGIES: Reviewed and unchanged CONTRAST ALLERGY: NO. EXAM: MRI - CONTRAST TYPE: GROUP II PERIPHERAL IV DATA: Ambulatory: A peripheral IV was started in the Left antecubital site with a Angio cath/Butterfly: 24 gauge. RADIOLOGY DEPARTMENT: MR; Exam(s) Completed: Lower MSK: Hip, left SIGNATURE: RT Neeraj(R), (R) PATIENT NAME: Makenna Chen DATE: September 24, 2021 TIME: 11:35 [facility]07-19-2022 History of Present illness Narrative* RT Dong (Rt)(R) - 09/24/2021 10:00 AM EDT Radiology Service Progress Note DATE OF SERVICE: September 24, 2021 TIME: 11:35 AM PATIENT IDENTITY VERIFICATION COMPLETED USING TWO (2) STANDARD IDENTIFIERS: Name and Date of confirmed by patient verbally. FALL SCREENING: Has the patient had 2 falls in the last year or 1 fall with injury or currently using an Ambulatory Assistive Device (Walker, Cane, Wheelchair, Crutches, etc.)? No PATIENT GENDER DATA: Female. status: : No status: NO. PATIENT RELEVANT IMPLANT DATA REVIEWED: Yes ALLERGIES: Reviewed and unchanged CONTRAST ALLERGY: NO. EXAM: MRI - CONTRAST TYPE: GROUP II PERIPHERAL IV DATA: Ambulatory: A peripheral IV was started in the Left antecubital site with a Angio cath/Butterfly: 24 gauge. RADIOLOGY DEPARTMENT: MR; Exam(s) Completed: Lower MSK: Hip, left SIGNATURE: RT Neeraj(R), (R) PATIENT NAME: Makenna Chen DATE: September 24, 2021 TIME: 11:35 AM [facility] Future Appointments Appointment Date:05/27/2022 10:00:00 AM Scheduled Provider:JESUS ALBERTO PAYTON DO Location:[facility] Appointment Type:PC OV Future Scheduled Tests Laboratory* Microalbumin Level Urine 11/26/21 Radiology* MRI Spine Lumbar w/o Contrast 06/13/21 [facility] Evaluation + Plan note Future Appointments Appointment Date:06/01/2024 04:00:00 PM Scheduled Provider:JESUS ALBERTO PAYTON DO Location:[facility] Appointment Type:PC OV Controlled Medication Future Scheduled Tests Laboratory* Albumin/Creatinine Ratio, Random Urine 03/08/24 [facility] Evaluation + Plan note Future Appointments Appointment Date:10/21/2024 10:30:00 AM Scheduled Provider:MARK MARTINEZ Location:[facility] Appointment Type:PC Wellness Annual Future Scheduled Tests Laboratory* Albumin/Creatinine Ratio, Random Urine 03/08/24 [facility] Evaluation + Plan note Future Appointments Appointment Date:01/20/2025 10:30:00 AM Scheduled Provider:MARK MARTINEZ Location:[facility] Appointment Type:PC OV Controlled Medication Future Scheduled Tests Laboratory* Iron Level 04/22/25 * A1C Hemoglobin 04/22/25 * Complete Blood Count 04/22/25 * Lipid Profile 04/22/25 * Albumin/Creatinine Ratio, Random Urine 03/08/24 * Albumin/Creatinine Ratio, Random Urine 04/22/25 * Complete Metabolic Panel 04/22/25 [facility] Evaluation note* Diagnosis Abdominal pain, left lower quadrant- Primary documented in this encounter [facility] Work Phone: Evaluation note* Diagnosis Onset Date Resolution Status Acute rhinosinusitis acute [facility] Work Phone: Evaluation note* Diagnosis Onset Date Resolution Status Admit Date Abnormal uterine bleeding (AUB) acute December 21 1:27pm PCB (post coital bleeding) acute December 21, 2024 1:27pm Encounter for routine gynecological examination noneactive Octobe r 2024 1:27pm [facility] Work Phone: Hospital course Narrative No data available for this section [facility] Hospital Discharge instructions* Attachments The following attachments cannot be sent through Care Everywhere. * Abdominal Pain (Greenlandic) [facility] Phone: Hospital Discharge instructions No data available for this section [facility] Progress note No data available for this section [facility] Reason for referral (narrative)No reason for referral information availableBloomington [facility] Services Work Phone: Reason for Referral Specialty Diagnoses / Procedures Referred By Jose bartholomew Referred To Contact Family Medicine Diagnoses Abdominal pain, left lower quadrant [facility] [address] [place] [address] [address] Al [address] [facility] [address] [place] [address] Referral ID Status Reason Start Date Expiration Date V isits Requested Visits Authorized [id number] Open Specialty Services Required 02/22/2021 02/22/2022 1 1 Scheduling Instructions [facility] [address] [facility] [address] [place] [address] Summary Purpose Family History No Family History Records Found Relationship Condition Age at Onset Recorded Date/T milton mother Diabetes mellitus Unknown Hypertension Unknown Relationship Condition Age at Onset Recorded Date/T milton mother Diabetes mellitus Unknown Hypertension Unknown father Seizure Unknown Neoplasm of brain Unknown grandfather Myocardial infarction Unknown grandmother Myocardial infarction Unknown Advance Directives No Advanced Directives Records Found Advance Directive Response Recorded Date/ Time Living Will No March 15 0 2:02pm Power of Hackler Doll Wigs No March 15 020 2:02pm Chief Complaint and Reason for Visit Chief Complaint COUGH/CONGESTION/NOE AT EAR PAIN Reason for Visit Acute rhinosinusitis Chief Complaint 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, 2024 1 :27pm AUB December 30, 2024 8 :44am Reason for Visit Admit Date Abnormal uterine bleeding (AUB) December 21, 2024 1:27pm PCB (post coital bleeding) December 21, 2024 1:27pm Encounter for routine gynecological exam ination December 21, 2024 1:27pm Additional Source Comments Reason for Visit (unrecogniz ed section and content) Reason Comments Pelvic Pain Reason Comments Radiology MRI Specialty Diagnoses / Procedures Referred By Jose bartholomew Referred To Contact Radiology / RADIO MRI Diagnoses Neoplasm of unspecified behavior of bone, soft tissue, 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 SOFT TISSUE AND SKIN,ORDER FAXED BY OFFICE Procedures MRI ANY JT LOWER EXTREM W/O & W/CONTRAST MATRL MRI WWO MSK1 B1 [address] Js Sanchez Jr., DO [address] [place] [address] Radio Mri [facility] [address] [place] [address] Referral ID Status Reason Start Date Expiration Date Visits Re quested Visits Authorized [id number] Closed 09/05/2021 10/20/2021 1 1 Ordered Prescriptions (unrec ognized section and content) Prescription Sig Dispensed Refills Start Date End Da te ondansetron (ZOFRAN-ODT) 4 MG disintegrating tablet Take 1 tablet by mouth 3 times daily as needed for Nausea or Vomiting 21 tablet 0 02/22/2021 Scheduled Active and Recently Administ ered Medications (unrecognized section and content) Medication Order 02/20/2021 02/21/2021 02/22/2021 ondansetron (ZOFRAN) injection 4 mg (COMPLETED) 4 mg, IntraVENous, ONCE, On Thu02/22/21 at 1737, For 1 dose 1935 (Given - Provid er: Enriqueta Kraft RN) INFORMATION SOURCE (unrecogn ized section and content) DATE CREATED AUTHOR 02/26/2021 [facility] DATE CREATED AUTHOR AUTHOR'S ORGANIZ ATION 06/28/2021 [facility] DATE CREATED AUTHOR AUTHOR'S ORGANIZ ATION 09/29/2021 [facility] DATE CREATED AUTHOR AUTHOR'S ORGANIZ ATION 12/08/2021 [facility] [place] DATE CREATED AUTHOR AUTHOR'S ORGANIZ ATION 01/24/2022 [facility] DATE CREATED AUTHOR AUTHOR'S ORGANIZ ATION 11/17/2024 [facility] DATE CREATED AUTHOR AUTHOR'S ORGANIZ ATION 01/17/2025 [facility] Source Comments (unrecognize d section and content) In the event this informatio n is protected by the Federal Confidentiality of Alcohol and Drug Abuse Patient Records regulations: The Federal rules restrict any use of the information to criminally investigate or prosecute any alcohol or drug abuse patient.[facility] Care Teams (unrecognized sec tion and content) Head 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 Jesus Alberto Payton DO Family Provider Active Dr. Jesus Alberto Payton DO Primary Care Provider Active Team Status: Inactive Member Role Status Dates Dr. Jesus Alberto Payton DO Primary Care Provider, Referri ng Provider Active PIPPA Barone Attending Provider Active Team Status: Inactive Member Role Status Dates Dr. Jesus Alberto Payton DO Primary Care Provider Active FADI CONTE Attending Provider Active Team Status: Active Member Role/Relationship Status Dates DARIAN JEFFRIES Primary care physician Active Team Status: Inactive Member Role/Relationship Status Dates Dr. Jesus Alberto Payton DO Primary care physician Active Start: December 21, 2024 End: December 21, 2024 Dr. Jesus Alberto Payton DO Referring Provider Active Start: December 21, 2024 End: December 21, 2024 DARIAN King Attending physician Active Start: December 21, 2024 End: December 21, 2024 Team Status: Inactive Member Role/Relationship Status Dates DARIAN JEFFRIES Primary care physician Active Start: December 21, 2024 End: December 21, 2024 DARIAN King Attending physician Active Start: December 21, 2024 End: December 21, 2024 DARIAN King Referring Provider Active Start: December 21, 2024 End: December 21, 2024 Team Status: Active Member Role/Relationship Status Dates DARIAN JEFFRIES Primary care physician Active Start: December 30, 2024 DARIAN King Attending physician Active Start: December 30, 2024 DARIAN King Referring Provider Active Start: December 30, 2024 Care Team (unrecognized sect ion and content) Care Team Personnel Name: JESUS ALBERTO PAYTON Position: P4 Physician - Primary Care Med Service: Active Provider Member Role: Primary Care Physician Address: Address: [address] [place] [id number]- Care Team Related Persons Name: ANDRE CHEN Address: [address] [phone] Goals (unrecognized section and content) Goals may be documented in a n alternate section FOR RECORDS PERTAINING TO PATIENTS WHO ARE OR HAVE BEEN ENROLLED IN A CHEMICAL DEPENDENCY/SUBSTANCEABUSE PROGRAM, SOME INFORMATION MAY BE OMITTED. This clinical summary was aggregated from multiple sources. Caution should be exercised in using it in the provision of clinical care. This summary normalizes information from multiple sources, and as a consequence, information in this document may materially change the coding, format and clinical context of patient data. In addition, data may be omitted in some cases. CLINICAL DECISIONS SHOULD BE BASED ON THE PRIMARY CLINICAL RECORDS. [facility] [employer] provides no warranty or guarantee of the accuracy or completeness of information in this document.
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
--- NOTE | 2025-02-21 10:38 | PCM.DC ---
Discharge Instructions DC O2, CPAP, BIPAP needs Home O2 Discharge instructions: No Dressing / Incision Discharge Activity: May Shower May resume sexual activity in: 8 weeks Weight Bearing Status: Full weight bearing Lifting Restrictions: 10 pounds for 2 weeks Dressing / Incision Call your doctor if your incision/area has: Continuous Slow Oozing, Sudden Increased Bleeding, Increased Pain/ Swelling, Increased Redness and Foul Smelling Discharge Call your doctor if you observe: Fever of 101 or Higher, Using more than 1 pad per hour, Shortness of breath, Chest pain and Uncontrolled pain Suture Line Care: Avoid Pulling/Pushing and Avoid Pinching/Bending Remove Dressing in: 1 week (if present) Cleanse incision/area with: Soap & Water and Keep Dressing Clean & Dry Follow Up Care Please Follow Up With: Makenna Lynch DO When: Call to make an appointment with your doctor for a postop visit in 2 and 6 weeks Test Results: Test results from this visit will be discussed in further detail at your follow-up appointment, if applicable. Discharge Plan Admission Primary Reason for Your Visit: hysterectomy Attending Provider: Makenna Lynch Primary Care Provider: MARK MORALES Instructions Print Language: Mosotho Discharge Orders/Prescriptions Prescriptions: New ibuprofen 800 mg tablet 800 mg PO Q8H PRN (Reason: pain) Qty: 30 0RF oxycodone-acetaminophen [Percocet] 5-325 mg tablet 1 tab PO Q4H PRN (Reason: pain) 7 Days Qty: 20 0RF Continued lisinopril 10 mg tablet 10 mg PO DAILY Qty: 30 Patient Comments: TAKE 1 TABLET BY MOUTH EVERY DAY Mounjaro 10 mg/0.5 mL pen injector 10 mg subcut CAMEJO vonoprazan 20 mg tablet 20 mg PO QDAY alprazolam [Xanax] 0.5 mg tablet 0.5 mg PO QHS PRN (Reason: anxiety) Linzess 290 mcg capsule 290 mcg PO DAILY atorvastatin [Lipitor] 20 mg tablet 20 mg PO QDAY Referrals / Follow Up: MARK MORALES, [employer] [Primary Care Provider, Family Practice] Disposition Disposition (needs filled in before D/C Order can be placed): Home, Self Care
--- NOTE | 2025-02-21 10:45 | HYST_PTH ---
PATIENT: JOSE ALBERTO CHEN [place] [facility] [id number] AGE/SX: 49/F ROOM: RE02/21/[address]: Dr. Jose Alberto Lynch DO : 1975 BED: DIS: 02/21/2025 SPEC #: [id number] RECD: 02/21/25 14:42 STATUS: LACIE RENinfa #: [id number] DWIGHT: 02/21/25 10:[address]: Jose Alberto Lynch DEPT: SURGICAL PATHOLOGY RECD BY: Rob Enrique ENTERED: 02/21/25 15:13 SP TYPE: HYSTERECT OTHR DR: MARK MORALES, [facility] Tissues: A - Uterus, NOS Procedures: Surgery Specimen Level V HEADER OPERATION: ERAS, laparoscopic hysterectomy with bilateral salpingectomy, cystoscopy PRE-OP DIAGNOSIS: Post endometrial ablation syndrome, post coital bleeding, abnormal uterine bleeding TISSUE SUBMITTED: A- Uterus, cervix, bilateral fallopian tubes MICROSCOPIC DIAGNOSIS A. Uterus, cervix, fallopian tubes, robotic hysterectomy, bilateral salpingectomy: Cervix: Benign squamous epithelium and endocervical glandular tissue Endometrium: Fibrosing endometrium consistent with previous treatment effect Myometrium: Leiomyoma Bilateral fallopian tubes: Benign fallopian tubes with benign paratubal cysts MICROSCOPIC DESCRIPTION Slides are reviewed. GROSS DESCRIPTION A. Received in formalin labeled with the patient's name and date of . Designated as uterus + bilateral fallopian tubes is a 72.7 g, 7.5 x 4.3 x 3.7 cm uterus with attached adnexa. The serosa is upton-pink and glistening. The attached cervix is upton-pink and focally erythematous, measuring 2.9 x 2.9 cm; the 0.5 cm os is probe patent. Mucoid containing cysts are present. The specimen is inked as follows: [id number] Opening reveals a 4.5 x 1.1 cm fibrotic endometrial canal lined by minimal, pink-red, possible endometrium that measures up to 0.1 cm thick; there is a 1.6 x 0.9 cm somewhat indurated, fibrotic area near the fundus (grossly consistent with history of ablation). The myometrium is upton-pink to red and somewhat trabeculated, measuring up to 1.8 cm thick. A 0.6 cm possible, intramural leiomyoma is identified. The upton-pink to purple bilateral fallopian tubes are fimbriated and measure 4.2 x 0.6 cm (L) and 7.0 x 0.5 cm (R). Multiple paratubal cysts are identified, 0.6 cm in greatest dimension. Team Leader sections are submitted as follows: A1: Anterior cervixA2: Posterior cervixA3: Anterior endomyometriumA4: Posterior endomyometriumA5: Indurated endometrium near fundusA6: Left fallopian tubeA7: Right fallopian tubeA8: Possible leiomyoma TX 02/21/2025 CPT:11826
[2025-02-21] MEDS: Cefazolin 1 GM/5 ML Vial 2 GM IV (10:56)
[2025-02-21] MEDS: Midazolam 2 MG/2 ML Syringe IV (10:56)
[2025-02-21] MEDS: Lidocaine 1% (5 ml sdv) 5 ML Vial 10 ML IV (11:03)
[2025-02-21] MEDS: fentaNYL 100 MCG/2 ML Ampul 200 MCG IV (13:28)
--- NOTE | 2025-02-21 13:36 | PCM.OPRPT ---
Multi Select Codes Urinary/Genital Urinary/Genital CPT Codes: 52306 Cystoscopy and 04514 TLH+BS/O <250gr uterus Operative Report (Standard) Operative Information Date of Procedure: 02/21/25 Pre-Operative Diagnosis: post-ablation syndrome, pelvic pain Post-Operative Diagnosis: post-ablation syndrome, pelvic pain Surgery/Procedure Performed: total robotic hysterectomy, bilateral salpingectomy, cystoscopy gse mechanic: Yes [employer] Professor: Álvaro Rosa Tasks completed by transportation assistant: Closing, Trocar and Retracting Additional assistant front office manager?: Yes Additional Casey Saw Operator #2: Aris Duncan Tasks completed by assistant front office manager #2: Other (ran bowel) Additional assistant front office manager?: No Type of Anesthesia: General RN Documented Start/Stop Times: Operation Date: 02/21/25 10:45 Case Time Into Pre-Op 02/21/25 08:51 Out of Pre-Op 02/21/25 10:53 Anesthesia Start 02/21/25 10:57 Into Room 02/21/25 10:57 Procedure Start 02/21/25 11:25 Procedure End 02/21/25 13:26 Anesthesia End 02/21/25 13:33 Out of Room 02/21/25 13:33 Procedure Start Time: 11:25 Procedure Stop Time: 13:26 Select all DRAINS/GRAFTS/IMPLANTS that apply: None Estimated Blood Loss: 10cc Specimen collected: Yes Description of specimen(s) removed: uterus, cervix, fallopian tubes Description of surgery: Reason for surgery: This is a -year-old G2, P2 who presented to my office with history of post-ablation syndrome. the planned procedure is for a robotic hysterectomy the risks benefits and alternatives were discussed with the patient the patient had a clear understanding of the procedure and a consent form was signed. Procedure: The patient was placed in the dorsal low lithotomy position and prepped and draped in the normal sterile fashion both abdominally and in the perineum. Her legs were placed in stirrups a Garcia catheter was inserted into the urethra without difficulty. A weighted speculum was placed in the vagina and a single-tooth tenaculum was used to grasp the anterior lip of the cervix. An advincula uterine manipulator was inserted through the cervix without complication. It was then tied into place at the 2 and 10:00 locations on the cervix. Gloves were changed and attention was turned towards the abdomen. Approximately 23 cm above the pubic symphysis in the midline, and after Marcaine injection, a 8 mm incision was made. An 8 mm trocar was inserted through the laparoscope, then inserted into the abdomen under direct visualization using the laparoscope. Good abdominal placement was noted, however during entry the mesentery of the small intestines was incidentally poked with the trocar. Dr. Duncan was asked to come in for assistance and he ran the bowel and did not find any harm to the mesenteric artery or bowel and it was found to be hemostatic. An air seal device was utilized to create pneumoperitoneum. At 12 cm lateral to the midline on the left and right sides 8 mm accessory ports were placed. Next a left upper quadrant 8 mm assistant front office manager port site was placed. The patient was placed in steep Trendelenburg position. The robot was docked. The hysterectomy was initiated first by taking down the round ligament on each side using the vessel sealer device. The fallopian tubes were elevated and the underlying mesosalpinx was cauterized and cut to the level of the uterine cornua. The broad ligament was then and taken down using the vessel sealer device. Next the bladder flap was taken down without complication. This was done using monopolar cautery to the level of the cervical vaginal junction. After the bladder flap was created, uterine vessels were then isolated and cauterized using the vessel sealer device and EndoShears. At this point the uterine vessels were taken down further starting from the ascending branch, dissecting along the edges of the cervix to the level of the cervical vaginal junction with hemostasis appreciated. The cervical vaginal junction was then using monopolar cautery in a circumferential pattern across the superior aspect of the cervix. The specimen was delivered through the vagina and sent to pathology. The remaining vaginal cuff was then closed using a V lock suture. This was performed in a running technique. Excellent hemostasis was obtained and good closure was noted. Irrigation was then performed. All operative sites were noted to be hemostatic. A cystoscopy was performed with a 70 degree cystoscope through the urethra into the bladder without complication. The bladder was instilled with approximately 250 cc of normal saline. Intraoperative images were made. Ureteral orifices and jets were identified. No suture material was appreciated in the bladder. The bladder was then drained and cystoscope was removed. The abdominal cavity was again examined using the laparoscope after the robot was undocked. All operative sites were noted to be hemostatic. The trochars were removed under direct visualization without complication and pneumoperitoneum was reduced. At this point the skin was then closed using 4-0 Monocryl subcuticular stitch and sealed with surgical glue. The patient tolerated the procedure well sponge lap and needle counts were correct x2 the patient was taken to the recovery room in stable condition. Surgical Findings: Findings: 8 cm size uterus, normal appearing ovaries and tubes. Fallop-rings present on tubes. On exploration of the abdominal cavity the uterus, adnexa, bowel, and liver were found to be normal. During entry the mesentery of the small intestines was incidentally poked with the trocar. Dr. Duncan was asked to come in for assistance and he ran the bowel and did not find any harm to the mesenteric artery or bowel and it was found to be hemostatic. Cystoscopy showed no evidence of leaking at approximately 250 cc of normal saline, positive ureteral orifices and jet flow are seen and no suture material was appreciated in the bladder. Complications Complications: No Admit VTE Documentation VTE Present on Admission: No VTE Mechan Device Prophylaxis: SCD's VTE Pharm Prophylaxis ordered?: No Reason prophylaxis not ordered: Treatment Not Indicated
--- NOTE | 2025-02-21 13:42 | PCM.POST.ANE ---
Anesthesia: Postop Eval I Current Vital Signs Temperature: 97.6 F Pulse Rate: 84 Blood Pressure: 126/98 Respiratory Rate: 16 Pulse Ox: 100 Assessment Airway patent: Yes Spontaneous unlabored respirations: Yes nausea: No Vomiting: No Anesthesia Complication: No Fluid Hydration Crystalloid volume administer (ml): 1,300 Total IV fluid infused: 1,300 Progress Note Anesthesia document: Postop Eval 1 completed: Yes
[2025-02-21] MEDS: HYDROcodone Bitartrate/Apap 5/325 Tablet PO (15:46)
--- NOTE | 2025-02-21 20:06 | OP.PCM_ITS ---
Operative Report (Standard) Operative Information Date of Procedure: 02/21/25 Pre-Operative Diagnosis: Concern for small bowel/viscera injury from trocar insertion Post-Operative Diagnosis: Mesenteric hematoma of the ileum Surgery/Procedure Performed: Diagnostic laparoscopy cement finisher: Yes Online User Experience Strategist: Makenna Lynch Tasks completed by media center assistant: Other (Laparoscopic camera operation) Type of Anesthesia: General/Supplemental RN Documented Start/Stop Times: Operation Date: 02/21/25 10:45 Case Time Into Pre-Op 02/21/25 08:51 Out of Pre-Op 02/21/25 10:53 Anesthesia Start 02/21/25 10:57 Into Room 02/21/25 10:57 Procedure Start 02/21/25 11:25 Procedure End 02/21/25 13:26 Anesthesia End 02/21/25 13:33 Out of Room 02/21/25 13:33 Into Recovery 02/21/25 13:36 Out of Recovery 02/21/25 15:01 Into Phase II Recovery 02/21/25 15:02 Out of Phase II 02/21/25 16:54 Procedure Start Time: 12:05 Procedure Stop Time: 12:20 Select all DRAINS/GRAFTS/IMPLANTS that apply: None Estimated Blood Loss: 5 Specimen collected: No Description of surgery: I was called to the operating room by Dr. Pitts as she was just preparing to dock robot for her hysterectomy. She informing that she had concern for possible bowel injury upon trocar insertion. I presented to the OR immediately and she showed me that there had been a inadvertent laceration of the mesentery directly deep to her supraumbilical trocar and hemoblast had been used to obtain hemostasis. However, I was unable to more fully assess the situation so I scrubbed and obtained atraumatic graspers as well as a angled laparoscope. In Trendelenburg positioning with the left side down I began running the bowel from the area of concern more proximally. I found through this process that the area of inadvertent injury had occurred in the ileal mesentery. The bowel was run all the way back to the ligament of Treitz and there was no sign of bowel inju ry. I therefore returned to the area of injury and inspected it more closely. I found a partial-thickness opening in the mesentery and a small hematoma that did not appear to be expanding. Additionally, the bowel being perfused by those mesenteric vessels did not show any signs of ischemia. I placed a Ray-Cindy into the abdomen and applied direct pressure to the area for a period of 3 minutes. After this pressure was relieved the area was reinspected and I could confirm there was no expansion of the hematoma. Satisfied with this inspection I turned the case back over to Dr. Pitts to complete the operation. Surgical Findings: ? Partial thickness injury to the distal small bowel mesentery, hemostatic, viable bowel distally ? No other evidence for small bowel injury Complications Complications: No
--- NOTE | 2025-02-22 22:47 | POSTOPAN2_ITS ---
Anesthesia Postop Eval I Sum Postop Eval Completion status Anesthesia document: Postop Eval 1 completed: Yes Anesthesia Postop Eval I Summary Anesthesia Postop Eval I Summary: Anesthesia Postop Eval I: Assessment Summary Airway patent Yes 02/21/25 13:42 DIRECTOR AUDIENCE [email or web address] Spontaneous unlabored Yes 02/21/25 13:42 DIRECTOR AUDIENCE [email or web address] respirations Mental status nausea No 02/21/25 13:42 DIRECTOR AUDIENCE [email or web address] Vomiting No 02/21/25 13:42 DIRECTOR AUDIENCE [email or web address] Anesthesia Postop Eval I: Fluid Summary Crystalloid volume administer 1,300 02/21/25 13:42 DIRECTOR AUDIENCE [email or web address] (ml) Colloids volume administered ( ml) Blood Product volume administered (ml) Total IV fluid infused 1,300 02/21/25 13:42 DIRECTOR AUDIENCE [email or web address] Anesthesia Postop Eval I: Summary Notes Anesthesia Complication No 02/21/25 13:42 DIRECTOR AUDIENCE [email or web address] Anesthesia Complication Comment: Post-operative progress note Anesthesia: Postop Eval II Evaluation Mental status: Awake and Calm Pain Level: 2 nausea: No Vomiting: No Complications Anesthesia Complication: No
--- NOTE | 2025-02-22 22:47 | PCM.POSTANE2 ---
Anesthesia Postop Eval I Sum Postop Eval Completion status Anesthesia document: Postop Eval 1 completed: Yes Anesthesia Postop Eval I Summary Anesthesia Postop Eval I Summary: Anesthesia Postop Eval I: Assessment Summary Airway patent Yes 02/21/25 13:42 MANAGER [email or web address] Spontaneous unlabored Yes 02/21/25 13:42 MANAGER [email or web address] respirations Mental status nausea No 02/21/25 13:42 MANAGER [email or web address] Vomiting No 02/21/25 13:42 MANAGER [email or web address] Anesthesia Postop Eval I: Fluid Summary Crystalloid volume administer 1,300 02/21/25 13:42 MANAGER [email or web address] (ml) Colloids volume administered ( ml) Blood Product volume administered (ml) Total IV fluid infused 1,300 02/21/25 13:42 MANAGER [email or web address] Anesthesia Postop Eval I: Summary Notes Anesthesia Complication No 02/21/25 13:42 MANAGER [email or web address] Anesthesia Complication Comment: Post-operative progress note Anesthesia: Postop Eval II Evaluation Mental status: Awake and Calm Pain Level: 2 nausea: No Vomiting: No Complications Anesthesia Complication: No
== END 2025-02-21 16:55 | disposition home or self-care (01) ==
LOC: SDC 08:48 → AC 08:49
PROVIDERS: Anesthesiology; PCP Nurse Practitioner Family; Referring Provider Obstetrics & Gynecology; Visit Provider Obstetrics & Gynecology
PROC: 0UT90ZZ Resection of Uterus, Open Approach (ICD-10-PCS; CPT 58571; principal; 2025-02-21 10:25)
DX: N99.85 Post endometrial ablation syndrome (principal); N93.0 Postcoital and contact bleeding; N83.8 Other noninflammatory disorders of ovary, fallopian tube and broad ligament; D25.1 Intramural leiomyoma of uterus; I10 Essential (primary) hypertension; E78.00 Pure hypercholesterolemia, unspecified; Y65.8 Other specified misadventures during surgical and medical care; Z79.899 Other long term (current) drug therapy; Z87.440 Personal history of urinary (tract) infections
CPT/HCPCS: 58571; S2900; 00840; 36415; 80076; 81025; 82962; 83735; 85027; 85610; 85730; 86850; 86900; 86901; 88307; J2405; J3475